=== PATIENT | female | born 1950 | race Caucasian/White ===

== ENCOUNTER 2024-09-26 13:28 | Inpatient (IN) | payer OTHER, SELFPAY ==
[2024-09-26] VITALS (37 sets, daily range): BP systolic 85–130; BP diastolic 49–67; PULSE 77; BMI 31.4
[2024-09-26 08:02] LABS: Hematocrit 31.3 % (37.0-47.0); Hemoglobin 9.8 g/dL (12.0-16.0); Mean Corp Hgb Conc. 31.3 g/dL (33.0-37.0); Mean Corpuscular Hgb 26.8 pg (27.0-31.0); Mean Corpuscular Volume 85.8 fL (81.0-99.0); Mean Platelet Volume 9.7 fL (7.4-10.4); Platelet Count 327 10^3/uL (130-400); Red Blood Cell Count 3.65 10^6/uL (4.20-5.40); Red Cell Dist. Width 15.7 % (11.5-14.5); White Blood Cell Count 8.6 10^3/uL (4.8-10.8)
[2024-09-26 08:35] LABS: ALT (SGPT) 15 U/L (0-35); AST (SGOT) 17 U/L (14-36); Albumin 4.5 g/dl (3.5-5.0); Alkaline Phosphatase 44 U/L (38-126); Blood Urea Nitrogen 49 mg/dl (7-17); Calcium 9.7 mg/dl (8.4-10.2); Carbon Dioxide 22 mmol/L (22-30); Chloride 110 mmol/L (98-107); Estimated Creatinine Clearance 32 ml/min; Glucose 83 mg/dl (70-99); Potassium 4.7 mmol/L (3.5-5.1); Sodium 139 mmol/L (135-145); Total Bilirubin 0.3 mg/dl (0.2-1.3); Total Protein 6.7 g/dl (6.3-8.2); eGFR 31.47
[2024-09-26] MEDS: PLAVIX 75 MG PO (08:45)
[2024-09-26 10:21] LABS: ACT-LR - POC 277 Seconds (116-155)
[2024-09-26 10:30] LABS: ACT-LR - POC 308 Seconds (116-155)
[2024-09-26 11:16] LABS: ACT-LR - POC 298 Seconds (116-155)
[2024-09-26 12:03] LABS: ACT-LR - POC 239 Seconds (116-155)
[2024-09-26 13:01] LABS: ACT-LR - POC 219 Seconds (116-155)
--- NOTE | 2024-09-26 13:14 | HPS.HSE ---
Addendum entered and electronically signed by Alex Blair MD 09/26/24 17:29:
d/w case with Dr. Wick. Patient in Acute on chronic HFrEF. Plan for staged PCI later this week. Thus, eliquis has been held and okay to start hep gtt for patient history of PE.
Original Note:
Family Physician
-
Family Physician: Risa Tabor DO
Chief Complaint
-
seen post cath
History of Present Illness
74-year-old female with extensive past medical history who was recently admitted to [facility] came in for cardiac catheterization. Patient says she was admitted to [facility] with chest pain. Was found that she had angina and also
with pericarditis and pericardial effusion. Patient was started on colchicine was recommend to follow-up with her outpatient primary outpatient coordinator Dr. Cast. Patient was also complaining of dyspnea on exertion. Denies lower extremity edema.
Denies PND and orthopnea. Patient was referred for further cardiac workup over here. Patient underwent diagnostic cardiac catheterization. Received report by RN at bedside that patient with severe coronary artery disease in LAD and RCA however
awaiting official report. Patient currently resting in bed denies any chest pain or shortness of breath. States she uses 2 L of oxygen at baseline due to her history of severe COPD. Chronically states she is short of breath with exertion.
Medical History
Past Medical History
Past Medical History: Reports Other
Additional Past Medical History:
Coronary artery disease
Chronic kidney disease stage 3b
Scleroderma
Raynaud's phenomenon
COPD
Chronic hypoxic respiratory failure
Asthma
History of pulmonary embolism
Chronic coagulopathy with Eliquis
Chronic HFrEF
Pericarditis
Pericardial effusion
History of pleural effusion status post thoracentesis
Neuropathy
Hypothyroidism
Mood disorder
Obesity
Breast cancer
LOUISE on CPAP
Past Surgical History: Reports Other
Additional Past Surgical History:
Breast cancer status post mastectomy and chemoradiation
Social History
Tobacco: Non-smoker
Alcohol: Occasional
Family History
Family History: Not pertinent
Allergies / Home Medications
Allergies reflects when Allergies were last updated in [employer].
Home Medications with original date entered in [employer]
Allergy/Medication List:
Allergies
Allergy/AdvReac Type Severity Reaction Status Date / Time
aspirin Allergy Intermediate Nausea / Verified 09/26/24 08:43
Vomiting
adhesive Allergy Blisters Verified 09/26/24 11:33
Beta-Blockers Allergy depression Verified 09/26/24 11:33
(Beta-Adrenergic Bloc
colesevelam (From WelChol) Allergy Nausea / Verified 09/26/24 11:33
Vomiting
ezetimibe (From Zetia) Allergy Muscle pain Verified 09/26/24 11:33
fish oil Allergy Unknown Verified 09/26/24 11:33
Cqsyuvy-ETZ-KeI Reductase Allergy paralysis Verified 09/26/24 11:33
Inhibitor
Home Medications
albuterol sulfate 90 mcg/actuation aerosol inhaler 2 puff inhalation Q6H PRN COPD 09/26/24
apixaban 5 mg tablet (Eliquis) 5 mg PO BID 09/26/24
azelastine 137 mcg (0.1 %) nasal spray 1 spray intranasal BID 09/26/24
budesonide 160 mcg-glycopyr 9 mcg-formot 4.8 mcg/actuation HFA inhaler (Breztri Aerosphere) 2 inh inhalation BID 09/26/24
carvedilol 3.125 mg tablet 3.125 mg PO BID 09/26/24
cetirizine 10 mg tablet 10 mg PO DAILY 09/26/24
clopidogrel 75 mg tablet (Plavix) 75 mg PO DAILY 09/26/24
colchicine 0.6 mg tablet 0.6 mg PO DAILY 09/26/24
cyclobenzaprine 10 mg tablet 10 mg PO HS 09/26/24
dexlansoprazole 60 mg capsule,biphase delayed release 60 mg PO DAILY 09/26/24
escitalopram oxalate 20 mg tablet 20 mg PO DAILY 09/26/24
escitalopram oxalate 5 mg tablet 5 mg PO DAILY 09/26/24
fluticasone propionate 50 mcg/actuation nasal spray,suspension 2 spray intranasal BID 09/26/24
gabapentin 300 mg capsule 300 mg PO HS 09/26/24
guaifenesin 600 mg tablet, extended release 12 hr 600 mg PO BID 09/26/24
hydroxychloroquine 400 mg tablet 400 mg PO DAILY 09/26/24
leflunomide 10 mg tablet 10 mg PO SUMOWEFRSA 09/26/24
leflunomide 10 mg tablet 20 mg PO TUTH 09/26/24
levothyroxine 75 mcg tablet 75 mcg PO DAILY 09/26/24
lorazepam 1 mg tablet 0.5 mg PO HS PRN anxiety 09/26/24
montelukast 10 mg tablet 10 mg PO DAILY 09/26/24
multivitamin-ferrous fumarate-folic acid 18 mg-400 mcg tablet (Centrum Women) 1 tab PO DAILY 09/26/24
nitroglycerin 0.4 mg sublingual tablet 0.4 mg sublingual Q5-15M PRN Chest pain 09/26/24
pantoprazole 40 mg tablet,delayed release 40 mg PO DAILY 09/26/24
spironolactone 25 mg tablet 25 mg PO DAILY 09/26/24
sucralfate 100 mg/mL oral suspension 10 ml PO AC 09/26/24
torsemide 10 mg tablet 10 mg PO DAILY 09/26/24
valsartan 160 mg tablet 80 mg PO DAILY 09/26/24
vitamin B complex 1 tab PO DAILY 09/26/24
Review of Systems
-
History Source: Patient
A 12 point ROS was completed and negative except as noted: Yes
Physical Exam
Vital Signs
Vital Signs
Temp Pulse Resp BP Pulse Ox
98.2 F 77 15 117/60 95
09/26/24 07:13 09/26/24 11:30 09/26/24 11:30 09/26/24 11:27 09/26/24 11:30
Physical Exam
General: Well Developed, Well Nourished, No Apparent Distress and Obese
HEENT: NormoCephalic, Moist mucous membranes, Atraumatic and Oxygen
Respiratory: Clear
Cardiac: S1/S2 and Regular Rhythm; No Murmur or Rub
GI: Soft, Non Tender, Non Distended and Normal Bowel Sounds; No Organomegaly
Rectal: Deferred by Provider
Musculoskeletal: No Clubbing, No Cyanosis and No Edema
Skin: No Rash
Neuro: Awake, Alert, Oriented, AO x 3, No Motor Deficits and Nonfocal/grossly intact
Psych: Calm
Laboratory Results
-
09/26/24 07:52
09/26/24 07:52
Laboratory Results
Total Bilirubin 0.3 mg/dl (0.2-1.3) 09/26/24 07:52
AST 17 U/L (14-36) 09/26/24 07:52
ALT 15 U/L (0-35) 09/26/24 07:52
Alkaline Phosphatase 44 U/L (38-126) 09/26/24 07:52
Data Reviewed
-
Old Records: Reviewed
Impression/Plan
-
#Unstable angina
#Coronary artery disease
Awaiting official cardiac catheterization report
Will await further cardiology evaluation and recommendation and hold Eliquis in the interim
Currently chest pain-free
Continue with goal-directed medical therapy-carvedilol, Plavix,
Does not seems to be on statin. Check lipid profile in the morning
Nitroglycerin as needed for chest pain
#Chronic kidney disease stage 3b
Monitor creatinine closely
If worsening of creatinine may need nephrology input prior to cardiac catheterization
Hold valsartan for now. Avoid hypotension
Avoid nephrotoxin
#Scleroderma
#Raynaud's phenomenon
Chronic immunosuppressive state
Continue with leflunomide and Plaquenil
#COPD
#Chronic hypoxic respiratory failure
#Asthma
Continue with a home bronchodilator regimen
Continue with Singulair
#History of pulmonary embolism
#Chronic coagulopathy with Eliquis
Eliquis is currently being held as cardiac catheterization planned pending. Can consider starting patient on heparin infusion
Patient PE was 6 months ago
#Chronic HFrEF
Per outpatient records EF of 20 to 25%
Diuresis per cardiology. Monitor creatinine closely with aggressive diuresis
Continue with beta-jas, Plavix, Aldactone
#Pericarditis
# History of effusion
Currently patient on colchicine
Vital signs are currently stable
#Neuropathy
Continue patient gabapentin
PT and OT
#Hypothyroidism
Continue with Synthroid
#Mood disorder
Continue with Lexapro
DVT prophylaxis SCDs
Full code. Patient is Jehovah witness and stated will refuse blood transfusion.
I spent a total of 80 minutes with the patient or on the floor. More than 50% of this time involved counseling and coordination of care.
[2024-09-26 14:31] LABS: ACT-LR - POC 178 Seconds (116-155)
[2024-09-26 15:10] LABS: ACT-LR - POC 152 Seconds (116-155)
--- NOTE | 2024-09-26 16:49 | CARDSERVLU ---
Echocardiogram with Lumason completed after protocol screening completed. Allergies verified.
Patent IV site: ___LAC__
IV site flushed with 0.9% NaCl pre and post administration.
Diluted bolus method utilized to enhance visualization of ventricular ernandez.
Total volume given: _4___ mL
Patient tolerated all procedures well without complications.
--- NOTE | 2024-09-26 18:09 | ITS.CL.CATH ---
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
Cardiac Catheterization
Procedure Report:
LEFT HEART CATHETERIZATION
Date of Procedure: September 26, 2024
Referring: Miguel Goodman NP and Rodger Bacon MD
PROCEDURES:
1. Left heart catheterization, coronary angiogram.
2. Moderate sedation.
3. Right heart catheterization
4. Functional physiologic testing of Prox to mid LAD
INDICATION: Mary is a 74 F with HTN, HLD, multiple drug allergies, Raynaud's syndrome, scleroderma on chronic steroids, CKD St 3B, CAD with prior LAD stents in 2004 at [facility], recent hospitalization at [facility] in mid August with ADHF found to
have LVEF 20-25% with pharm nuclear scan abnormal with post stress LVEF 17% who is now being referred for left and right heart cath.
ACCESS: Right common femoral artery and vein, 5Fr and 6Fr. sheath, resepctively, under US guidance.
HEMODYNAMICS : (mmHg)
RA (m) : 17
RV (s/d,m) : 52/11, 14
PA (s/d, m) : 52/26, 37
PCWP (m) : 20
PA saturation: 61.5% on room air
AO saturation: 88.9% on room air
RA saturation: 57.2% on room air
Cardiac Output : 5.34 L/min by Zehra calculation
Cardiac Index : 2.77 L/min/m-2 by Zehra calculation
Systemic vascular resistance: 943 dsc^(-5)
Pulmonary vascular resistance: 3.56 saucedo unit
Heart rate: 77 bpm
AO (s/d) : 112/60
LVEDP : 31
No significant gradient across the aortic valve to suggest aortic stenosis.
CORONARY ANATOMY:
Dominance: Right
Left Main Trunk (LMT): Large caliber vessel that gives rise to the LAD and LCx branches. The terminal left main has 20% stenosis.
Left Anterior Descending Artery (LAD): Large caliber vessel that gives off two major diagonal branches as it courses along the anterior inter-ventricular groove before reaching the apex. The proximal to mid-LAD is heavily calcified and diffusely
diseased 50% then then a 95% stenosis at the second diagonal. The first major diagonal which is a small caiber vessel has ostial 70% stenosis. The apical LAD is diffusely diseased. Proximal to Mid LAD is iFR positive at 0.81
Left Circumflex Artery (LCx): Large caliber vessel that gives off a first large early bifurcating major obtuse marginal (OM) branches as it courses along the atrio-ventricular (AV) groove. The inferior limb of the OM1 has an ostial 70% stenosis.
The superior limb is the bigger of the two vessels.
Right Coronary Artery (RCA): Large caliber dominant vessel that gives rise to large posterior descending artery (RPDA) that reaches the apex and postero-lateral ventricular (RPLV) branches distally. The mid-RCA has a mid-vessel long 80% stenosis.
iFR of Poximal to Mid LAD: The LCA was selectively enagged using EBU 3.75 6Fr guide catheter. Additional heparin was given throughout the case. 200mg of IC nitroglycerine was given. iFR Pattison wire was normalized just outside guide tip and advance
across proximal to mid long area of calcified 50% stenosis which was abnormal at 0.81, 0.82, 0.4 with pull back showing normalization of iFR in proximal portion of LAD. No drift noted at guide.
SEDATION: 32 minutes of procedural sedation was utilized. IV Midazolam and IV Fentanyl were administered. An independent medical billing and coding instructor was present to assist with and help manage the patient's level of consciousness and physiologic status.
RADIATION SUMMARY: Fluoro Time (min): 8.9 dose (mGy): 632.7, DAP (Gy.cm2) : 38 point
Closure Device: There were no immediate intra-procedural complications. The sheath was pulled in the medical laboratory scientist and a vascular-band applied to the right wrist for radial artery hemostasis using the patent hemostasis technique.
CONCLUSIONS
1. Multivessel CAD.
2. Increased right and left sided filling pressures with normal CO.
3. Elevated LVEDP at 31mmHG.
RECOMMENDATIONS
1. Bedrest per protocol
2. Continue aggressive medical therapy and risk factor modification for secondary CAD prevention.
3. Hydrate with normal saline to mitigate the risk of contrast-induced acute kidney injury.
4. Would recommend Heart Team evaluation for complex triple vessel coronary artery disease with ischemic cardiomyopathy If declined by cardiac surgery for CABG would recommend high risk complex PCI of the calcified LAD and the RCA likely at 48-72hr
parker given baseline CKD and to reduce risk of PATRIA.
5. IV diuresis and GDMT for ischemic CM.
Copy to: Miguel Goodman NP and Rodger Bacon MD
Qi Wick MD.
--- NOTE | 2024-09-26 18:24 | PTCARENOTE ---
Addendum entered by Polina Kasper RN 09/26/24 19:08:
80 mg IV Lasix given 2 hours after sheath pull as ordered.
Addendum entered by Polina Kasper RN 09/26/24 19:03:
patient had breast cancer therefore right limb restriction, pink band on.
Original Note:
received patient from labeling machine operator with right femoral artery and vein site, dsg. D/i, distal pulse very weak but palpable. patient remains on strict bedrest until 1949. patient understands post cath restrictions. monitor placed NSR, VSS. lung brewer
diminished , patient on chronic o2 3LNC. patient unable to void, pure wick already in place. patient has skin cancer on right eyebrow which was burnt off, wart on left ring finger that was burned off and cyst removed from left upper shoulder area,
sutures in place with band aid over site. oriented to room, and call benz system. patient is a Jehovah witness.
--- NOTE | 2024-09-26 18:39 | CONSULT.CT ---
Addendum entered and electronically signed by THOMAS Diaz 09/27/24 13:48:
Case discussed with Dr Zavala-agrees with plan for PCI
Original Note:
Consultation
-
Date/Time Consultation Requested: 09/26/24
Date/Time Consultation Performed: 09/26/24
Requesting Provider: Qi Wick
Performing Provider: Mariam GUZMAN for Chuck Wagoner
Reason for Consultation: CABG evaluation
Patient History
Physicians
Family Physician: Risa Tabor
Outpatient Heel Attacher Wood: Rodger Bacon
Inpatient Heel Attacher Wood: Qi Wick
History of Present Illness
74-year-old female with extensive past medical history including CAD with prior stents, CKD, COPD, breast cancer s/p mastectomy with chemo/radiation, was recently admitted to [facility] for pericarditis and pericardial effusion which was not
drained. Patient was referred for further cardiac workup at [facility] due to SOB/SALINAS and presents 09/27/23 for diagnostic cardiac catheterization. Severe LAD and RCA disease in setting of low EF 25%. States she uses 2 L of oxygen at baseline due to her
history of severe COPD. Chronically states she is short of breath with exertion.
Pertinent negatives:
Past Medical History
Past Medical History: Asthma, CAD (prior stents 2003), Cancer (right breast cancer), COPD (non-smoker), SALINAS, Hypothyroidism and LOUISE (uses CPAP)
chronic small right pulmonary emboli, scleroderma; pericardial effusion; pleural effusion requiring thoracentesis; Arnett's palsy; Raynaud's; peripheral neuropathy
Past Surgical History
Past Surgical History: Mastectomy (right with rectus flap reconstruction) and Other (B/L intraocular lens implanrs)
Social History
Alcohol: None
Drug: None
Tobacco: Non-Smoker
Personal: Single
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
Allergies
Allergy/AdvReac Type Severity Reaction Status Date / Time
adhesive Allergy Blisters Verified 09/26/24 11:33
aspirin Allergy Nausea / Verified 09/26/24 16:15
Vomiting
Beta-Blockers Allergy depression Verified 09/26/24 11:33
(Beta-Adrenergic Bloc
colesevelam (From WelChol) Allergy Nausea / Verified 09/26/24 11:33
Vomiting
ezetimibe (From Zetia) Allergy Muscle pain Verified 09/26/24 11:33
fish oil Allergy Unknown Verified 09/26/24 11:33
Htgtwdy-OKI-JiO Reductase Allergy paralysis Verified 09/26/24 11:33
Inhibitor
Home Medications
�Medication �Instructions �Recorded �Confirmed �Type
albuterol sulfate 90 mcg/actuation 2 puff inhalation Q6H PRN COPD 09/26/24 09/26/24 History
aerosol inhaler
apixaban 5 mg tablet (Eliquis) 5 mg PO BID 09/26/24 09/26/24 History
azelastine 137 mcg (0.1 %) nasal 1 spray intranasal BID 09/26/24 09/26/24 History
spray
budesonide 160 mcg-glycopyr 9 2 inh inhalation BID 09/26/24 09/26/24 History
mcg-formot 4.8 mcg/actuation HFA
inhaler (Breztri Aerosphere)
carvedilol 3.125 mg tablet 3.125 mg PO BID 09/26/24 09/26/24 History
cetirizine 10 mg tablet 10 mg PO DAILY 09/26/24 09/26/24 History
clopidogrel 75 mg tablet (Plavix) 75 mg PO DAILY 09/26/24 09/26/24 History
colchicine 0.6 mg tablet 0.6 mg PO DAILY 09/26/24 09/26/24 History
cyclobenzaprine 10 mg tablet 10 mg PO HS 09/26/24 09/26/24 History
dexlansoprazole 60 mg 60 mg PO DAILY 09/26/24 09/26/24 History
capsule,biphase delayed release
escitalopram oxalate 20 mg tablet 20 mg PO DAILY 09/26/24 09/26/24 History
escitalopram oxalate 5 mg tablet 5 mg PO DAILY 09/26/24 09/26/24 History
fluticasone propionate 50 2 spray intranasal BID 09/26/24 09/26/24 History
mcg/actuation nasal
spray,suspension
gabapentin 300 mg capsule 300 mg PO HS 09/26/24 09/26/24 History
guaifenesin 600 mg tablet, 600 mg PO BID 09/26/24 09/26/24 History
extended release 12 hr
hydroxychloroquine 400 mg tablet 400 mg PO DAILY 09/26/24 09/26/24 History
leflunomide 10 mg tablet 10 mg PO SUMOWEFRSA 09/26/24 09/26/24 History
leflunomide 10 mg tablet 20 mg PO TUTH 09/26/24 09/26/24 History
levothyroxine 75 mcg tablet 75 mcg PO DAILY 09/26/24 09/26/24 History
lorazepam 1 mg tablet 0.5 mg PO HS PRN anxiety 09/26/24 09/26/24 History
montelukast 10 mg tablet 10 mg PO DAILY 09/26/24 09/26/24 History
multivitamin-ferrous 1 tab PO DAILY 09/26/24 09/26/24 History
fumarate-folic acid 18 mg-400 mcg
tablet (Centrum Women)
nitroglycerin 0.4 mg sublingual 0.4 mg sublingual Q5-15M PRN Chest 09/26/24 09/26/24 History
tablet pain
pantoprazole 40 mg tablet,delayed 40 mg PO DAILY 09/26/24 09/26/24 History
release
spironolactone 25 mg tablet 25 mg PO DAILY 09/26/24 09/26/24 History
sucralfate 100 mg/mL oral 10 ml PO AC 09/26/24 09/26/24 History
suspension
torsemide 10 mg tablet 10 mg PO DAILY 09/26/24 09/26/24 History
valsartan 160 mg tablet 80 mg PO DAILY 09/26/24 09/26/24 History
vitamin B complex 1 tab PO DAILY 09/26/24 09/26/24 History
Review of Systems
-
History Source: Patient
General: Reports Other (states 50 pound weight loss last year )
HEENT: Reports No Symptoms
Respiratory: Reports SOB and SALINAS
Cardiac: Reports No Symptoms
Abdomen/GI: Reports No Symptoms
: Reports No Symptoms
Musculoskeletal: Reports No Symptoms
Skin: Reports No Symptoms
Neurological: Reports No Symptoms
Vascular: Reports No Symptoms
Physical Exam
Vital Signs
Temp 97.7 F 09/26/24 17:43
Temp route: Oral 09/26/24 17:43
Pulse 80 09/26/24 16:00
Resp Rate 18 09/26/24 17:43
Blood pressure 102/55 09/26/24 15:40
Blood pressure extremity used: Left upper arm 09/26/24 17:43
Position: Lying 09/26/24 17:43
MAP (cuff-Anita Monitor) 69 09/26/24 15:40
SaO2 96 09/26/24 16:00
Nasal Cannula flow liters per minute 3 09/26/24 17:43
Oxygen Mode of Delivery Room air 09/26/24 14:29
Can the patient verbally communicate their pain? Yes 09/26/24 17:43
Pain scale ratin 09/26/24 17:43
Actual Weight 85.5 kg 09/26/24 08:07
Body Mass Index (BMI) 31.4 09/26/24 08:07
Labs
09/26/24 07:52
Exam
General: Well Developed and Well Nourished
HEENT: Normocephalic, Anicteric and Moist Mucous Membranes
Neck: Trachea Midline
Respiratory: Clear
Cardiac: S1/S2 and Regular Rhythm
GI: Soft, Non Tender and Normal Bowel Sounds
Rectal: Deferred by Provider
Skin: Warm and Dry
Neuro: AO x 3, No Motor Deficits and Nonfocal/Grossly Intact
Lymph: No Lymphadenopathy
Psych: Calm and Confused
Assessment / Plan
-
74 year old female with multivessel CAD, chronic HFrEF (20-25%), CKDIIIb (GFR 31)
-surgeon to review imaging and d/w cardiology
- needs medical optimization
- if deemed a surgical surgical candidate, will need pre-op diagnostics
Data Reviewed
-
EKG: Tracing Personally Visualized and interpreted, Report Reviewed by me and Discussed with Physician
[employer] Net Software Developer: Report Reviewed by me and Discussed with Physician
Labs: Labs Reviewed by me and Discussed with Physician
[2024-09-26] MEDS: LASIX 80 MG IV (18:48)
[2024-09-26] MEDS: FLUSH (NSS) 1 FLUSH IV (18:49)
[2024-09-26 18:54] LABS: Hematocrit 31.6 % (37.0-47.0); Hemoglobin 9.6 g/dL (12.0-16.0); Mean Corp Hgb Conc. 30.4 g/dL (33.0-37.0); Mean Corpuscular Hgb 26.4 pg (27.0-31.0); Mean Corpuscular Volume 86.8 fL (81.0-99.0); Mean Platelet Volume 9.5 fL (7.4-10.4); Platelet Count 305 10^3/uL (130-400); Red Blood Cell Count 3.64 10^6/uL (4.20-5.40); Red Cell Dist. Width 15.6 % (11.5-14.5)
[2024-09-26] MEDS: SYMBICORT 160/4.5 MCG INHALER 2 PUFF INH (19:04)
[2024-09-26 19:06] LABS: APTT 27.6 Sec (23.4-35.0)
[2024-09-26] MEDS: HEPARIN 25000 UNITS/250 ML IV (19:43)
[2024-09-26] MEDS: CARAFATE SUSPENSION PO (19:51)
[2024-09-26] MEDS: MUCINEX 600 MG PO (20:11)
[2024-09-26] MEDS: COREG 3.125 MG PO (20:11)
[2024-09-26] MEDS: FLEXERIL 10 MG PO (22:13)
[2024-09-26] MEDS: ATIVAN 0.5 MG PO (22:13)
[2024-09-26] MEDS: NEURONTIN 300 MG PO (22:13)
--- NOTE | 2024-09-26 23:16 | PTCARENOTE ---
Patient received at change of shift resting in the bed. Right groin site with gauze and tegaderm C/D/I, pedal pulse palpable, leg cool and pale but sensation is intact. Surrounding area of groin puncture soft to palpation, no ecchymosis present.
Denies chest pain. After bedrest was completed the patient was assisted to ambulate and use the bathroom. Denies feeling lightheaded or dizzy. Voiding in the bathroom appropriately. Heparin gtt initiated at 1500units/hr per order. Sinus rhythm on
telemetry. Oxygen saturation 97-99% on 3L NC. The patient states she is a chronic O2 user and 3L is normal for her. PRN Lorazepam given per patient request, see MAR. Plan of care discussed. Call benz within reach. Care ongoing
[2024-09-27] VITALS (8 sets, daily range): BP systolic 92–107; BP diastolic 49–64; BMI 30.6
[2024-09-27] MEDS: TYLENOL 650 MG PO ×2 (02:15→21:35)
[2024-09-27 02:57] LABS: Hematocrit 30.8 % (37.0-47.0); Hemoglobin 9.9 g/dL (12.0-16.0); Mean Corp Hgb Conc. 32.1 g/dL (33.0-37.0); Mean Corpuscular Hgb 26.7 pg (27.0-31.0); Mean Platelet Volume 9.6 fL (7.4-10.4); Platelet Count 301 10^3/uL (130-400); Red Blood Cell Count 3.71 10^6/uL (4.20-5.40); Red Cell Dist. Width 15.7 % (11.5-14.5); White Blood Cell Count 9.2 10^3/uL (4.8-10.8)
[2024-09-27 03:14] LABS: APTT 130.9 Sec (23.4-35.0)
[2024-09-27 04:19] LABS: Hepatitis C Antibody Negative (Negative)
[2024-09-27 04:34] LABS: Blood Urea Nitrogen 45 mg/dl (7-17); Calcium 9.7 mg/dl (8.4-10.2); Carbon Dioxide 23 mmol/L (22-30); Chloride 109 mmol/L (98-107); Estimated Creatinine Clearance 36 ml/min; Glucose 89 mg/dl (70-99); HDL Cholesterol 45 mg/dl; LDL Cholesterol, Calculated 164 mg/dl; Potassium 4.6 mmol/L (3.5-5.1); Sodium 139 mmol/L (135-145); Total Cholesterol 255 mg/dl (50-199); Triglyceride 234 mg/dl (10-149); Very Low Density Lipoprotein 46 mg/dl (0-30); eGFR 36.57
[2024-09-27] MEDS: SYNTHROID 75 MCG PO (05:18)
[2024-09-27] MEDS: SYMBICORT 160/4.5 MCG INHALER 2 PUFF INH ×2 (07:12→17:54)
[2024-09-27] MEDS: SPIRIVA RESPIMAT 2.5 MCG 2 PUFF INH (07:12)
--- NOTE | 2024-09-27 07:55 | W.PN.CARDCBS ---
Addendum entered and electronically signed by Dominguez Alaniz MD 09/27/24 10:12:
I saw and examined the patient.
The FREQUENCY CHECKER or PA's note was reviewed and I agree with the note.
Comment: General: Well developed, well nourished in NAD.
Neck: Supple, no JVD, HJR, carotids +2 B/L, no bruits bilaterally.
Heart: Non displaced PMI, RRR, no murmurs, No S3, S4, no rubs.
Lungs: Scattered rhonchi
Extremities: No clubbing, cyanosis or edema bilaterally.
Neuro: Grossly nonfocal, awake, alert and oriented x3.
Await CT surgery evaluation but likely will be PCI possibly on Friday 09/29 based on schedule. Will give IV Lasix. Check echocardiogram. Discussed with patient and nursing in detail
Original Note:
Today's Communication / Plan
-
40 mg IV Lasix today
follow Cr
echo
CT surgical eval for CABG vs high risk PCI
Impression / Plan
-
Primary Geomagnetist: Dr. Rodger Bacon
Assessment:
CAD
Status post LAD PCI 2004 at [facility]
MV CAD by cath 09/26/24
ICM
Acute on chronic HFrEF
CKD3B
HTN
HLD
COPD on chronic 3L supp O2
History of PE
Chronic OAC with eliquis
History of statin intolerance (paralysis)
Raynaud's syndrome
Scleroderma on chronic steroids
Neuropathy
Hypothyroidism
History of breast cancer s/p mastectomy, chemo, radiation
Obesity
LOUISE on CPAP
Chronic anemia
ECHO 09/27/24: pending
Plan:
- Patient had hospitalization at [facility] in mid August with acute decompensated heart failure and found to have EF of 20 to 25% by echo. Then underwent subsequent pharmacologic nuclear stress test, also abnormal with post-rest EF of 17%. She
underwent left and right heart cath on 09/26/2024 and was found to have multivessel coronary disease of LAD, OM1, RCA.
- Undergoing CT surgical evaluation. Unclear if will be candidate for CABG given comorbidities including CKD and COPD on 3 L chronically as an outpatient. If not felt to be CABG candidate, would be candidate for high risk PCI of LAD and RCA per
interventional cardiology
- She remains chest pain-free overnight. Continue IV heparin, aspirin, Plavix
- PCWP at time of cath was 20. Was given 80 mg IV Lasix yesterday with good response. Would consider additional 40 mg IV today. Creatinine improved from 1.7-1.5. She has baseline CKD 3B. Was on torsemide 10 mg daily prior to admission
- CHF education
- She is back to baseline 3 L nasal cannula
- In sinus rhythm on review of telemetry overnight
- Repeat echo 09/27 to reevaluate EF
- Continue GDMT of ischemic cardiomyopathy with Coreg, spironolactone. Outpatient valsartan presently on hold. Could consider addition of SGLT2 inhibitor if cost affordable, will have case management assess
- On Eliquis as an outpatient due to history of PE. Will need to determine anticoagulation/antiplatelet regimen once treatment of coronary disease determined
- Discussed with nursing
Progress Note - Geomagnetist
Subjective
Date of Service: September 27, 2024
No chest pain. Reports good response to IV Lasix overnight
Objective
Labs:
09/27/24 02:40
09/27/24 03:57
Labs
Hgb 9.9 g/dL (12.0-16.0) L 09/27/24 02:40
Hct 30.8 % (37.0-47.0) L 09/27/24 02:40
Plt Count 301 10^3/uL (130-400) 09/27/24 02:40
APTT 130.9 Sec (23.4-35.0) H 09/27/24 02:35
Sodium 139 mmol/L (135-145) 09/27/24 03:57
Potassium 4.6 mmol/L (3.5-5.1) 09/27/24 03:57
BUN 45 mg/dl (7-17) H 09/27/24 03:57
Creatinine 1.5 mg/dL (0.6-1.0) H 09/27/24 03:57
Glucose 89 mg/dl (70-99) 09/27/24 03:57
Vital Signs and I&O:
Vital Signs
Temp Pulse Resp BP Pulse Ox
98.2 F 78 16 106/49 98
09/27/24 02:06 09/27/24 07:16 09/27/24 07:16 09/27/24 05:20 09/27/24 07:16
Vital Signs
Temp Pulse Resp BP Pulse Ox
98.2 F 78 16 106/49 98
09/27/24 02:06 09/27/24 07:16 09/27/24 07:16 09/27/24 05:20 09/27/24 07:16
Intake & Output
09/24/24 09/25/24 09/26/24 09/27/24
07:59 07:59 07:59 07:59
Output Total 300 / 300
Balance -300 / -300
Physical Exam
Physical Exam
GEN: No distress, awake, alert, oriented x3. On 3 L
HEENT: supple, anicteric, mmm, EOMI
LUNGS: Few crackles B/L bases, no wheezes
CV: Reg, S1/S2, no murmur
ABD: soft, BS+, NT/ND
EXT: No cyanosis, clubbing, edema
NEURO: Gross non-focal
SKIN: Warm, pink, dry. No rash
[2024-09-27] MEDS: MUCINEX 600 MG PO ×2 (08:25→19:44)
[2024-09-27] MEDS: PLAVIX 75 MG PO (08:25)
[2024-09-27] MEDS: LEXAPRO 5 MG PO (08:25)
[2024-09-27] MEDS: ALDACTONE 25 MG PO (08:25)
[2024-09-27] MEDS: ZYRTEC 10 MG PO (08:26)
[2024-09-27] MEDS: PROTONIX 40 MG PO (08:26)
[2024-09-27] MEDS: PLAQUENIL 400 MG PO (08:26)
[2024-09-27] MEDS: LEXAPRO 20 MG PO (08:26)
[2024-09-27] MEDS: COLCHICINE 0.6 MG PO (08:26)
[2024-09-27] MEDS: SINGULAIR 10 MG PO (08:26)
[2024-09-27] MEDS: COREG 3.125 MG PO ×2 (08:26→19:44)
[2024-09-27] MEDS: CARAFATE SUSPENSION 1 GM PO ×3 (10:02→15:53)
[2024-09-27] MEDS: LASIX 40 MG IV (11:18)
[2024-09-27 12:05] LABS: APTT 124.5 Sec (23.4-35.0)
[2024-09-27] MEDS: HEPARIN 25000 UNITS/250 ML IV (12:19)
--- NOTE | 2024-09-27 12:48 | CM ---
Addendum entered by SOPHIE Collier 09/27/24 15:18:
Did receive return call from [facility] [employer] Director, Carla. She clarifies that patient has 49 h of care. They are hoping to increase to 21h/day. They are requesting that MD write this in their note. Will discuss with MD once plan of
care is known w/ CT Surg.
Original Note:
CM following for DC planning needs.
Met w/ patient at bedside to complete initial assessment.
Pt. reports that she resides alone in a private, multi level apartment. Apartment has a stair glide to second level and no steps to enter.
Pt. receives support 59 h/week through aides. Aides are in her home daily from 10-330P. They assist with ADL as needed and housekeeping/cooking.
Pt. is hopeful to increase these hours. She is asking for documentation from MD in order to do so. She has provided her Supports Coordinator, Carla Trotter/ [phone]- I will reach out to her to see what documentation is needed.
Pt. also has VN thru [facility] and is currently open to services.
Add'l DME in the home include O2 (supplied by [employer]- 3L), RW, SPC and rollator. Pt. uses a rollator to ambulate.
DC needs are ultimately unknown and will depend on medical progress.
Will follow closely.
--- NOTE | 2024-09-27 13:00 | W.PN.HOSP.TC ---
Today's Communication/Plan
-
Diuresis per cardiology
Trend creatinine
Continue with heparin infusion
Await CT surgery input
Assessment / Plan
Assessment / Plan
General: Well Developed, Well Nourished, No Apparent Distress and Obese
HEENT: NormoCephalic, Moist mucous membranes, Atraumatic and Oxygen
Respiratory: Clear
Cardiac: S1/S2 and Regular Rhythm; No Murmur or Rub
GI: Soft, Non Tender, Non Distended and Normal Bowel Sounds; No Organomegaly
Rectal: Deferred by Provider
Musculoskeletal: No Clubbing, No Cyanosis and No Edema
Skin: No Rash
Neuro: Awake, Alert, Oriented, AO x 3, No Motor Deficits and Nonfocal/grossly intact
Psych: Calm
#Unstable angina
#Coronary artery disease status post PCI
Currently chest pain-free
Continue with goal-directed medical therapy-carvedilol, Plavix,
Does not seems to be on statin as allergic with paralysis as stated. Significantly elevated cholesterol.
Nitroglycerin as needed for chest pain
Plan for stage cardiac catheterization later this week if not a surgical candidate
Patient with multivessel coronary artery disease and CT surgery has been consulted
#Acute on chronic HFrEF
#Ischemic cardiomyopathy
Per outpatient records EF of 20 to 25%
Diuresis per cardiology. Monitor creatinine closely with aggressive diuresis
Continue with beta-jas, Plavix, Aldactone
Diuresis per cardiology
#Chronic kidney disease stage 3b
Monitor creatinine closely. Creatinine 1.5.
If worsening of creatinine may need nephrology input prior to cardiac catheterization
Hold valsartan for now. Avoid hypotension
Avoid nephrotoxin
Obtain records from PCP for baseline creatinine. Per patient she was told by primary doctor about elevated creatinine.
#Scleroderma
#Raynaud's phenomenon
Chronic immunosuppressive state
Continue with leflunomide and Plaquenil
#COPD
#Chronic hypoxic respiratory failure
#Asthma
#Chronic dyspnea
Continue with a home bronchodilator regimen
Continue with Singulair
#History of pulmonary embolism
#Chronic coagulopathy with Eliquis
Eliquis is currently being held as cardiac catheterization or surgery. Continue with heparin infusion.
Patient PE was 6 months ago
Patient is due to see her primary tire recapper end of the month
#Pericarditis
# History of effusion
Currently patient on colchicine
Vital signs are currently stable
#Neuropathy
Continue patient gabapentin
#Hypothyroidism
Continue with Synthroid
#Mood disorder
Continue with Lexapro
DVT prophylaxis heparin drip
Full code. Patient is Jehovah witness and stated will refuse blood transfusion.
Anticipated Discharge: > 48 hours
Subjective/Interval History
-
Date of Service: September 27, 2024
Currently denies any chest pain
Objective Data
-
Labs:
Laboratory Results
09/27/24 09/27/24 09/27/24
02:35 02:40 03:57
WBC 9.2
Hgb 9.9 L
Hct 30.8 L
Plt Count 301
APTT 130.9 H
Sodium Cancelled 139
Potassium Cancelled 4.6
Chloride Cancelled 109 H
Carbon Dioxide Cancelled 23
BUN Cancelled 45 H
Creatinine Cancelled 1.5 H
Glucose Cancelled 89
Calcium Cancelled 9.7
09/27/24 09/27/24
11:43 18:30
WBC
Hgb
Hct
Plt Count
APTT 124.5 H Pending
Sodium
Potassium
Chloride
Carbon Dioxide
BUN
Creatinine
Glucose
Calcium
Vital Signs:
Vital Signs
Temp Pulse Resp BP Pulse Ox
98.3 F 84 18 107/59 99
09/27/24 08:22 09/27/24 11:18 09/27/24 08:22 09/27/24 11:18 09/27/24 08:22
I&O
09/26/24 09/27/24 09/28/24
06:59 06:59 06:59
Output Total 300 / 300
Balance -300 / -300
Data Reviewed
-
Total Time Spent with Patient (in minutes): 55
--- NOTE | 2024-09-27 14:07 | W.PN.UPDATE ---
Update Note
Progress Note Update
STS RISK SCORE
Procedure Type:�Isolated CABG
Perioperative Outcome Estimate %
Operative Mortality 14.6%
Morbidity & Mortality 37.6%
Stroke 5.09%
Renal Failure 7.96%
Reoperation 3.24%
Prolonged Ventilation 27.1%
Deep Sternal Wound Infection 0.738%
Long Hospital Stay (>14 days) 37.3%
Short Hospital Stay (<6 days)* 5.18%
Clinical Summary
Planned Surgery: Isolated CABG, Urgent, First cardiovascular surgery
Demographics: 74 year old, female, 83.3kg, 165cm, BMI: 30.6 kg/m�
Lab Values: Creatinine: 1.5 mg/dL, Hematocrit: 33%, WBC Count: 9.2 10�/�L, Platelet Count: 921930 cells/�L
PreOp Medications: Insulin diabetes control
Substance Abuse: Never smoker
Risk Factors / Comorbidities: Insulin-dependent Diabetes Mellitus, Cancer <=5 yrs, Hypertension, Family Hx of CAD
Pulmonary RF: Severe CLD, Recent Pneumonia, Home O?, Sleep Apnea
Vascular RF: Cerebrovascular Disease: CVA > 30 days
Cardiac Status: NYHA Class II, Ejection Fraction = 23%
Coronary Artery Disease: 3 vessels diseased, Other
Valve Disease: Mild AR, Mild MR, Trivial/Trace TR
Prev. Cardiac Interv: Previous PCI: Not during this episode of care
--- NOTE | 2024-09-27 19:21 | PTCARENOTE ---
~4833-7579: Handoff report received from nightshift RN. Pt AOx4, NSR BBB 80s-90s on tele, SBP 100s-120s, + pulses, 3L NC (baseline) satting 98-100%, lung sounds clear bilaterally. Pt idnependent in room/ to bathroom. Heparin gtt infusing per
protocol. Bloodwork obtained and sent to lab, results pending. Pt denies pain at this time. Foam present on upper back, POA, dressing CDI. R groin site soft with 4x4 and tegaderm, CDI. Cardiology PA met with patient to discuss plan of care. IV lasix
given, I/Os charted. All needs met at this time, call benz within reach.
~8700-4907: PTT result, heparin gtt rate changed per protcol. Next PTT ordered.
~2011-1934: Patient in room, family at bedside. VSS. Heparin gtt infusing per order. I/Os charted. All needs met at this time, call benz within reach. Handoff report given to nightshift RN.
[2024-09-27 20:04] LABS: APTT 78.7 Sec (23.4-35.0)
[2024-09-27] MEDS: FLEXERIL 10 MG PO (21:35)
[2024-09-27] MEDS: NEURONTIN 300 MG PO (21:35)
[2024-09-27] MEDS: ATIVAN 0.5 MG PO (21:35)
--- NOTE | 2024-09-27 23:43 | PTCARENOTE ---
Patient received at change of shift resting in the bed. Heparin gtt infusing at 1100 units/hr. Right groin puncture with gauze and tegaderm C/D/I. Ecchymosis noted but surrounding area soft to palpation. RLE warm to touch. Pedal pulse palpable.
Patient denies chest pain or discomfort. Sinus rhythm on telemetry. Oxygen saturation on 3L NC 96-97%. Reported some generalized discomfort in her bilateral upper arms and body aches. PRN acetaminophen administered, see MAR. Patient also requested
PRN lorazepam as well, see MAR. Plan of care discussed with patient. Call benz within reach. Care ongoing.
[2024-09-28] VITALS (11 sets, daily range): BP systolic 93–107; BP diastolic 37–74; BMI 30.7
[2024-09-28 02:25] LABS: Hematocrit 29.2 % (37.0-47.0); Hemoglobin 9.5 g/dL (12.0-16.0); Mean Corp Hgb Conc. 32.5 g/dL (33.0-37.0); Mean Corpuscular Hgb 27.1 pg (27.0-31.0); Mean Corpuscular Volume 83.4 fL (81.0-99.0); Mean Platelet Volume 9.8 fL (7.4-10.4); Platelet Count 294 10^3/uL (130-400); Red Cell Dist. Width 15.5 % (11.5-14.5); White Blood Cell Count 8.4 10^3/uL (4.8-10.8)
[2024-09-28 02:58] LABS: APTT 89.4 Sec (23.4-35.0)
[2024-09-28 03:48] LABS: Blood Urea Nitrogen 50 mg/dl (7-17); Calcium 10.5 mg/dl (8.4-10.2); Carbon Dioxide 23 mmol/L (22-30); Chloride 106 mmol/L (98-107); Estimated Creatinine Clearance 33 ml/min; Glucose 105 mg/dl (70-99); Potassium 5.1 mmol/L (3.5-5.1); Sodium 136 mmol/L (135-145); eGFR 33.84
[2024-09-28] MEDS: SYNTHROID 75 MCG PO (06:05)
[2024-09-28] MEDS: SPIRIVA RESPIMAT 2.5 MCG 2 PUFF INH (08:06)
[2024-09-28] MEDS: SYMBICORT 160/4.5 MCG INHALER 2 PUFF INH ×2 (08:06→19:19)
[2024-09-28] MEDS: LEXAPRO 5 MG PO (08:21)
[2024-09-28] MEDS: PLAQUENIL 400 MG PO (08:21)
[2024-09-28] MEDS: MUCINEX 600 MG PO ×2 (08:21→20:22)
[2024-09-28] MEDS: COLCHICINE 0.6 MG PO (08:22)
[2024-09-28] MEDS: COREG 3.125 MG PO ×2 (08:22→20:22)
[2024-09-28] MEDS: SINGULAIR 10 MG PO (08:22)
[2024-09-28] MEDS: PLAVIX 75 MG PO (08:22)
[2024-09-28] MEDS: LEXAPRO 20 MG PO (08:22)
[2024-09-28] MEDS: CARAFATE SUSPENSION 1 GM PO ×3 (08:22→15:59)
[2024-09-28] MEDS: PROTONIX 40 MG PO (08:22)
[2024-09-28] MEDS: ALDACTONE 25 MG PO (08:22)
[2024-09-28] MEDS: ZYRTEC 10 MG PO (08:22)
--- NOTE | 2024-09-28 08:54 | W.PN.CARDCBS ---
Addendum entered and electronically signed by Qi Wick MD 09/28/24 20:41:
I saw and examined the patient.
The Drainage Engineer's note was reviewed and I agree with the note.
Comment: Patient is doing well and is in good spirits today. She denies any chest discomfort or shortness of breath. Her creatinine remained stable.
Vital signs and lab work reviewed. Creatinine stable 1.5 through 1.7. On exam patient is well-appearing, no acute distress, regular rate, normal S1 and S2, no murmurs, rubs or gallops, decreased breath sounds at bilateral bases, elevated JVP,
abdomen soft, nontender, nondistended with active bowel sounds, right common femoral access site with no evidence of hematoma or bruit, warm extremities
Echocardiogram reviewed from September 26, 2024 showing LVEF of 20 to 25%, small to moderate pericardial effusion. No significant valvular abnormalities.
Recommendations
1. Extensive discussion was had with patient at bedside with plan for PCI of LAD tomorrow, plus or minus IV L shockwave, plus or minus support with IABP/Impella if need be intra procedurally. Given she is a [place], we clarified and she
would not want any blood products but is agreeable to hemoglobin based blood substitutes, plasma protein fraction, dialysis and heart lung equipment and hemodilution.
2. Continue Plavix. Eliquis has been on hold with history of PE. Continue heparin drip. Plan to give 325 mg of aspirin x 1 tomorrow morning given her intolerance our plan would not be to continue this but leave her on chronic Plavix and Eliquis
post PCI.
3. As an outpatient strongly will need PCSK9 inhibitor consideration for significantly elevated LDL. Optimization of goal-directed medical therapy for severe ischemic cardiomyopathy.
4. Risk and benefits including alternative treatment options were discussed with patient at significant detail and she is agreeable to proceeding with planned PCI tomorrow. Dr. Reagan Zavala from CT surgery evaluated and saw the patient and
deemed her high risk for open heart surgery however patient is a rescue in case of any emergent complications. Consent was signed bedside with plan for case tomorrow morning.
Qi Wick MD, [facility], [facility]
Total time spent: 52-minutes
Original Note:
Today's Communication / Plan
-
for cath later today vs in AM
324mg asa day of cath then eliquis, plavix given history of asa intolerance
GDMT of ICM post procedure as able
Impression / Plan
-
Primary Care Coordinator: Dr. Rodger Bacon
Assessment:
CAD
Status post LAD PCI 2004 at [facility]
MV CAD by cath 09/26/24
ICM
Acute on chronic HFrEF
CKD3B
HTN
HLD
COPD on chronic 3L supp O2
History of PE
Chronic OAC with eliquis
History of statin intolerance (paralysis)
Raynaud's syndrome
Scleroderma on chronic steroids
Neuropathy
Hypothyroidism
History of breast cancer s/p mastectomy, chemo, radiation
Obesity
LOUISE on CPAP
Chronic anemia
ECHO 09/26/24: EF 20-25%, global hypokinesis, mod cLVH, stage 1 diastolic dysfunction, mild , small to mod pericardial effusion to LV, ascending aorta dilatation measuring 4.1cm
Plan:
- Patient had hospitalization at [place] in mid August with acute decompensated heart failure and found to have EF of 20 to 25% by echo. Then underwent subsequent pharmacologic nuclear stress test, also abnormal with post-rest EF of 17%. She
underwent left and right heart cath on 09/26/2024 and was found to have multivessel coronary disease of LAD, OM1, RCA.
- she was felt to be high risk for CABG given comorbidities. plan for high risk PCI of LAD and RCA, possibly later today, but likely in AM.
- She remains chest pain-free overnight. Continue IV heparin, Plavix. of note she has history of intolerance to aspirin with symptoms of severe abd pain, diarrhea, and cold sweats. discussed with IC. plan for 324mg asa on day of cath, with regimen
of plavix, eliquis post cath.
- PCWP at time of cath was 20. Was given 80 mg IV Lasix 09/26 and 40mg IV 09/27 with good response. Cr 1.6, baseline CKD 3B. Was on torsemide 10 mg daily prior to admission. She is back to baseline 3 L nasal cannula. will hold off on further
diuretics until after cath
- CHF education
- In sinus rhythm on review of telemetry overnight
- ECHO 09/26 remains with EF 20-25%. will need repeat echo as OP to reeval EF post revascularization
- Continue GDMT of ischemic cardiomyopathy with Coreg, spironolactone. Outpatient valsartan presently on hold. Could consider addition of SGLT2 inhibitor if cost affordable, will have case management assess
- On Eliquis as an outpatient due to history of PE. Will need to determine anticoagulation/antiplatelet regimen once treatment of coronary disease determined
Progress Note - Care Coordinator
Subjective
Date of Service: September 28, 2024
no issues overnight.
Objective
Labs:
09/28/24 02:16
09/28/24 02:16
Labs
Hgb 9.5 g/dL (12.0-16.0) L 09/28/24 02:16
Hct 29.2 % (37.0-47.0) L 09/28/24 02:16
Plt Count 294 10^3/uL (130-400) 09/28/24 02:16
APTT 89.4 Sec (23.4-35.0) H 09/28/24 02:15
Sodium 136 mmol/L (135-145) 09/28/24 02:16
Potassium 5.1 mmol/L (3.5-5.1) 09/28/24 02:16
BUN 50 mg/dl (7-17) H 09/28/24 02:16
Creatinine 1.6 mg/dL (0.6-1.0) H 09/28/24 02:16
Glucose 105 mg/dl (70-99) H 09/28/24 02:16
Vital Signs and I&O:
Vital Signs
Temp Pulse Resp BP Pulse Ox
98.9 F 88 16 98/50 96
09/28/24 07:58 09/28/24 08:22 09/28/24 08:08 09/28/24 08:22 09/28/24 07:58
Vital Signs
Temp Pulse Resp BP Pulse Ox
98.9 F 88 16 98/50 96
09/28/24 07:58 09/28/24 08:22 09/28/24 08:08 09/28/24 08:22 09/28/24 07:58
Intake & Output
09/26/24 09/27/24 09/28/24 09/29/24
07:59 07:59 07:59 07:59
Intake Total 612 / 612
Output Total 300 / 300 1150 / 1150
Balance -300 / -300 -538 / -538
Physical Exam
Physical Exam
GEN: No distress, awake, alert, oriented x3. On 3 L
HEENT: supple, anicteric, mmm, EOMI
LUNGS: CTA B/L, no wheezes
CV: Reg, S1/S2, no murmur
ABD: soft, BS+, NT/ND
EXT: No cyanosis, clubbing, edema
NEURO: Gross non-focal
SKIN: Warm, pink, dry. No rash
--- NOTE | 2024-09-28 10:06 | CM ---
Priced Farxiga through patient's pharmacy, [facility]. Est. cost of x1 mo supply of Farxiga (brand) is $0. TT to THOMAS to notify.
[2024-09-28] MEDS: HEPARIN 25000 UNITS/250 ML IV (10:45)
--- NOTE | 2024-09-28 11:28 | W.CON.NEPH ---
Consultation
-
Date/Time Consultation Requested: September 28, 2024 at 9 AM
Date/Time Consultation Performed: September 28, 2024 at 11 AM
Requesting Provider: Dr. Blair
Performing Provider: Dr. Alves
Reason for Consultation: PATRIA prevention in the setting of CKD
Medical History
-
Chief Complaint: Elevated creatinine
History of Present Illness:
74-year-old female with extensive past medical history including CAD with prior stents, CKD, COPD, breast cancer s/p mastectomy with chemo/radiation, was recently admitted to [facility] for pericarditis and pericardial effusion which was not
drained (on colchicine). Patient was referred for further cardiac workup at [facility] due to SOB/SALINAS and presents 09/27/23 for diagnostic cardiac catheterization. Severe LAD and RCA disease in setting of low EF 25%. she uses 2 L of oxygen at baseline due
to her history of severe COPD the patient has no history of smoke
Renal consult for PATRIA prevention in the setting of elevated creatinine. Uncertain to the patient's baseline
Past Medical History
Past medical history including CAD with prior stents, CKD, COPD, breast cancer s/p mastectomy with chemo/radiation,
Social History
Tobacco: Non-Smoker
Alcohol: None
Family History
Family History: Not Pertinent
Allergies / Home Medications
Allergy/AdvReac Type Severity Reaction Status Date / Time
adhesive Allergy Blisters Verified 09/26/24 11:33
aspirin Allergy Nausea / Verified 09/26/24 16:15
Vomiting
Beta-Blockers Allergy depression Verified 09/26/24 11:33
(Beta-Adrenergic Bloc
colesevelam (From WelChol) Allergy Nausea / Verified 09/26/24 11:33
Vomiting
ezetimibe (From Zetia) Allergy Muscle pain Verified 09/26/24 11:33
fish oil Allergy Unknown Verified 09/26/24 11:33
Ecnvexe-POW-GgI Reductase Allergy paralysis Verified 09/26/24 11:33
Inhibitor
�Medication �Instructions �Recorded �Confirmed �Type
albuterol sulfate 90 mcg/actuation 2 puff inhalation Q6H PRN COPD 09/26/24 09/26/24 History
aerosol inhaler
apixaban 5 mg tablet (Eliquis) 5 mg PO BID 09/26/24 09/26/24 History
azelastine 137 mcg (0.1 %) nasal 1 spray intranasal BID 09/26/24 09/26/24 History
spray
budesonide 160 mcg-glycopyr 9 2 inh inhalation BID 09/26/24 09/26/24 History
mcg-formot 4.8 mcg/actuation HFA
inhaler (Breztri WorldPass[employer]phere)
carvedilol 3.125 mg tablet 3.125 mg PO BID 09/26/24 09/26/24 History
cetirizine 10 mg tablet 10 mg PO DAILY 09/26/24 09/26/24 History
clopidogrel 75 mg tablet (Plavix) 75 mg PO DAILY 09/26/24 09/26/24 History
colchicine 0.6 mg tablet 0.6 mg PO DAILY 09/26/24 09/26/24 History
cyclobenzaprine 10 mg tablet 10 mg PO HS 09/26/24 09/26/24 History
dexlansoprazole 60 mg 60 mg PO DAILY 09/26/24 09/26/24 History
capsule,biphase delayed release
escitalopram oxalate 20 mg tablet 20 mg PO DAILY 09/26/24 09/26/24 History
escitalopram oxalate 5 mg tablet 5 mg PO DAILY 09/26/24 09/26/24 History
fluticasone propionate 50 2 spray intranasal BID 09/26/24 09/26/24 History
mcg/actuation nasal
spray,suspension
gabapentin 300 mg capsule 300 mg PO HS 09/26/24 09/26/24 History
guaifenesin 600 mg tablet, 600 mg PO BID 09/26/24 09/26/24 History
extended release 12 hr
hydroxychloroquine 400 mg tablet 400 mg PO DAILY 09/26/24 09/26/24 History
leflunomide 10 mg tablet 10 mg PO SUMOWEFRSA 09/26/24 09/26/24 History
leflunomide 10 mg tablet 20 mg PO TUTH 09/26/24 09/26/24 History
levothyroxine 75 mcg tablet 75 mcg PO DAILY 09/26/24 09/26/24 History
lorazepam 1 mg tablet 0.5 mg PO HS PRN anxiety 09/26/24 09/26/24 History
montelukast 10 mg tablet 10 mg PO DAILY 09/26/24 09/26/24 History
multivitamin-ferrous 1 tab PO DAILY 09/26/24 09/26/24 History
fumarate-folic acid 18 mg-400 mcg
tablet (Centrum Women)
nitroglycerin 0.4 mg sublingual 0.4 mg sublingual Q5-15M PRN Chest 09/26/24 09/26/24 History
tablet pain
pantoprazole 40 mg tablet,delayed 40 mg PO DAILY 09/26/24 09/26/24 History
release
spironolactone 25 mg tablet 25 mg PO DAILY 09/26/24 09/26/24 History
sucralfate 100 mg/mL oral 10 ml PO AC 09/26/24 09/26/24 History
suspension
torsemide 10 mg tablet 10 mg PO DAILY 09/26/24 09/26/24 History
valsartan 160 mg tablet 80 mg PO DAILY 09/26/24 09/26/24 History
vitamin B complex 1 tab PO DAILY 09/26/24 09/26/24 History
Review of Systems
-
No chest pain or shortness of breath other than chronic
All other systems: Negative unless noted
Physical Exam
Vital Signs
Vital Signs
Temp Pulse Resp BP Pulse Ox
98.9 F 88 16 98/50 96
09/28/24 07:58 09/28/24 08:22 09/28/24 08:08 09/28/24 08:22 09/28/24 07:58
Lab Results
WBC 8.4 10^3/uL (4.8-10.8) 09/28/24 02:16
RBC 3.50 10^6/uL (4.20-5.40) L 09/28/24 02:16
Hgb 9.5 g/dL (12.0-16.0) L 09/28/24 02:16
Hct 29.2 % (37.0-47.0) L 09/28/24 02:16
Plt Count 294 10^3/uL (130-400) 09/28/24 02:16
Sodium 136 mmol/L (135-145) 09/28/24 02:16
Potassium 5.1 mmol/L (3.5-5.1) 09/28/24 02:16
Chloride 106 mmol/L (98-107) 09/28/24 02:16
Carbon Dioxide 23 mmol/L (22-30) 09/28/24 02:16
BUN 50 mg/dl (7-17) H 09/28/24 02:16
Creatinine 1.6 mg/dL (0.6-1.0) H 09/28/24 02:16
eGFR 33.84 09/28/24 02:16
Glucose 105 mg/dl (70-99) H 09/28/24 02:16
Calcium 10.5 mg/dl (8.4-10.2) H 09/28/24 02:16
Albumin 4.5 g/dl (3.5-5.0) 09/26/24 07:52
Physical Exam
General no acute distress
HEENT no cephalic atraumatic extraocular muscle intact no scleral icterus no JVD neck supple
lungs clear to auscultation bilateral
heart regular S1-S2 positive
abdomen soft nontender positive bowel sounds
extremities no edema pulses present bilateral
Neurologically nonfocal alert and oriented x 3
Skin no lesions no abrasions no petechiae
Psych normal affect no bizarre behavior
Data Reviewed
-
Radiology: Image Personally Visualized and interpreted
Labs: Labs Reviewed by me and Discussed with Patient
Assessment/Plan
-
74-year-old female with extensive past medical history including CAD with prior stents, CKD, COPD, breast cancer s/p mastectomy with chemo/radiation, was recently admitted to [facility] for pericarditis and pericardial effusion which was not
drained (on colchicine). Patient was referred for further cardiac workup at [facility] due to SOB/SALINAS and presents 09/27/23 for diagnostic cardiac catheterization. Severe LAD and RCA disease in setting of low EF 25%. she uses 2 L of oxygen at baseline due
to her history of severe COPD the patient has no history of smoke
Renal consult for PATRIA prevention in the setting of elevated creatinine. Uncertain to the patient's baseline
Impression.
Elevated creatinine uncertain baseline with current creatinine of 1.6 equating to CKD stage IIIb.
Coronary artery disease requiring cardiac catheterization stenting.
Severe COPD on 2 L oxygen.
Pericarditis/pericardial effusion
Plan.
Creatinine is stable postcontrast 48 hours
Okay to proceed with cardiac cath
Will order prophylactic protocol.
Risk-benefit discussed with the patient and she understands
--- NOTE | 2024-09-28 12:25 | CM ---
CM following for DC planning needs.
Met w/ patient at bedside. She is hopeful for CATH tomorrow.
Pt. will have some needs @ home. I am trying to work with her [facility] Sound Effects Manager to increase her home hours. Will discuss w/ medical team to assist w/ this.
Pt. will need to be set up with [facility] @ home for resumption of care. Will work on this.
Finally, patient is requesting rollator walker in the home. I will look in to this.
Will follow.
--- NOTE | 2024-09-28 12:34 | W.PN.HOSP.TC ---
Today's Communication/Plan
-
Plan for cath later today versus tomorrow
Nephrology ordered bicarbonate infusion
Monitor volume status closely
Monitor creatinine closely postprocedure
Assessment / Plan
Assessment / Plan
General: Well Developed, Well Nourished, No Apparent Distress and Obese
HEENT: NormoCephalic, Moist mucous membranes, Atraumatic and Oxygen
Respiratory: Clear
Cardiac: S1/S2 and Regular Rhythm; No Murmur or Rub
GI: Soft, Non Tender, Non Distended and Normal Bowel Sounds; No Organomegaly
Rectal: Deferred by Provider
Musculoskeletal: No Clubbing, No Cyanosis and No Edema
Skin: No Rash
Neuro: Awake, Alert, Oriented, AO x 3, No Motor Deficits and Nonfocal/grossly intact
Psych: Calm
#Unstable angina
#Coronary artery disease status post PCI
Currently chest pain-free
Continue with goal-directed medical therapy-carvedilol, Plavix,
Does not seems to be on statin as allergic with paralysis as stated. Significantly elevated cholesterol.
Nitroglycerin as needed for chest pain
Plan for stage cardiac catheterization later today versus tomorrow
Patient with multivessel coronary artery disease and CT surgery has been consulted and recommended staged PCI
Nephrology also consulted patient with CKD
#Acute on chronic HFrEF
#Ischemic cardiomyopathy
Per outpatient records EF of 20 to 25%
Diuresis per cardiology. Monitor creatinine closely with aggressive diuresis
Continue with beta-jas, Plavix, Aldactone
Diuresis per cardiology
#Chronic kidney disease stage 3b
Monitor creatinine closely. Creatinine 1.6
Hold valsartan for now. Avoid hypotension
Avoid nephrotoxin
Obtain records from PCP for baseline creatinine. Per patient she was told by primary doctor about elevated creatinine.
Patient creatinine 1.3 in 05/20
#Scleroderma
#Raynaud's phenomenon
Chronic immunosuppressive state
Continue with leflunomide and Plaquenil
#COPD
#Chronic hypoxic respiratory failure
#Asthma
#Chronic dyspnea
Continue with a home bronchodilator regimen
Continue with Singulair
#History of pulmonary embolism
#Chronic coagulopathy with Eliquis
Eliquis is currently being held as cardiac catheterization or surgery. Continue with heparin infusion.
Patient PE was 6 months ago
Patient is due to see her primary tower erector helper end of the month
#Pericarditis
# History of effusion
Currently patient on colchicine
Vital signs are currently stable
#Neuropathy
Continue patient gabapentin
#Hypothyroidism
Continue with Synthroid
#Mood disorder
Continue with Lexapro
DVT prophylaxis heparin drip
Full code. Patient is Jehovah witness and stated will refuse blood transfusion.
Anticipated Discharge: > 48 hours
Subjective/Interval History
-
Date of Service: September 28, 2024
States has increased amount of urine yesterday
Currently comfortable
Denies any chest pain shortness of breath
Objective Data
-
Labs:
Laboratory Results
09/28/24 09/28/24
02:15 02:16
WBC 8.4
Hgb 9.5 L
Hct 29.2 L
Plt Count 294
APTT 89.4 H
Sodium 136
Potassium 5.1
Chloride 106
Carbon Dioxide 23
BUN 50 H
Creatinine 1.6 H
Glucose 105 H
Calcium 10.5 H
Vital Signs:
Vital Signs
Temp Pulse Resp BP Pulse Ox
97.6 F 88 18 98/50 95
09/28/24 11:39 09/28/24 08:22 09/28/24 11:39 09/28/24 08:22 09/28/24 11:39
I&O
0609/28/24 09/29/24
06:59 06:59 06:59
Intake Total 612 / 612
Output Total 300 / 300 1150 / 1150
Balance -300 / -300 -538 / -538
[2024-09-28] MEDS: DELTASONE 7.5 MG PO (17:41)
--- NOTE | 2024-09-28 19:12 | PTCARENOTE ---
~[id number]: Handoff report received from nightshift RN. Johannyetn AOx4 but forgetful at times, NSR BBB on tele, 80s-90s, SBP 90s-100s, patient satting >95% on 3L NC (baseline). Patient c/o generalized pain at this time, however does not want anything
for it. Per Dr Davis, patient granddaughter is to bring in leflunomide for patient's rheumatoid arhtristis, granddaughter made aware. Heparin gtt therapeutic at this time and infusing. All needs met at this time, call benz within reach.
~3526-8244: Granddaughter brought leflunomide in however the pills are . Dr. Davis made aware. Patient called kiln packer to double check what she is supposed to be taking because patient states 'She changed my meds over but I dont have my
list and I forget what it's called that I am taking.' After speaking with her rheumotologist, patient granddaughter informed this RN that patient is to be taking hydroxychloroquine 400mg daily and prednisone 7.5mg daily. Dr. Davis made aware. Home
med list also updated.
~[id number]: Granddaughter at bedside visiting. Plan for high risk PCI in AM. heaprin gtt infusing per order. VSS at this time. handoff report given to nightshift RN.
[2024-09-28] MEDS: FLEXERIL 10 MG PO (21:26)
[2024-09-28] MEDS: NEURONTIN 300 MG PO (21:26)
[2024-09-28] MEDS: ATIVAN 0.5 MG PO (22:54)
--- NOTE | 2024-09-28 23:40 | PTCARENOTE ---
Patient received at change of shift resting in the bed. Heparin gtt infusing at 1100units/hr. Dr. Wick in to discuss high risk PCI planned for tomorrow. Patient verbalized understanding that she will be NPO at midnight. Sinus rhythm on telemetry.
Oxygen saturation on 3L NC 97-98%. The patient denies chest pain or pressure. Anxiously awaits cardiac cath procedure tomorrow. Call benz within reach. Care ongoing.
[2024-09-29] VITALS (18 sets, daily range): BP systolic 92–124; BP diastolic 49–105; O2SAT 99; BMI 30.6
[2024-09-29] MEDS: SYNTHROID 75 MCG PO (03:48)
[2024-09-29 04:19] LABS: Hematocrit 30.9 % (37.0-47.0); Hemoglobin 9.7 g/dL (12.0-16.0); Mean Corp Hgb Conc. 31.4 g/dL (33.0-37.0); Mean Corpuscular Hgb 26.5 pg (27.0-31.0); Mean Corpuscular Volume 84.4 fL (81.0-99.0); Mean Platelet Volume 9.5 fL (7.4-10.4); Platelet Count 287 10^3/uL (130-400); Red Blood Cell Count 3.66 10^6/uL (4.20-5.40); Red Cell Dist. Width 15.3 % (11.5-14.5); White Blood Cell Count 8.2 10^3/uL (4.8-10.8)
[2024-09-29 04:27] LABS: APTT 86.3 Sec (23.4-35.0)
[2024-09-29 04:38] LABS: Blood Urea Nitrogen 40 mg/dl (7-17); Carbon Dioxide 24 mmol/L (22-30); Chloride 106 mmol/L (98-107); Estimated Creatinine Clearance 38 ml/min; Glucose 122 mg/dl (70-99); Potassium 5.4 mmol/L (3.5-5.1); Sodium 140 mmol/L (135-145); eGFR 39.73
[2024-09-29] MEDS: ZOFRAN 4 MG IV (05:02)
[2024-09-29] MEDS: ASPIRIN 325 MG PO (06:00)
[2024-09-29] MEDS: SODIUM BICARBONATE 1150 MEQ IV (06:19)
--- NOTE | 2024-09-29 06:34 | PTCARENOTE ---
Aspirin given as ordered and sodium bicarbonate gtt infusing as ordered prior to high risk PCI. Report given to fish farm laborer RN.
[2024-09-29] MEDS: HEPARIN 25000 UNITS/250 ML IV ×2 (06:38→21:24)
[2024-09-29 07:55] LABS: ACT-LR - POC 266 Seconds (116-155)
[2024-09-29] MEDS: SYMBICORT 160/4.5 MCG INHALER INH (08:27)
[2024-09-29] MEDS: SPIRIVA RESPIMAT 2.5 MCG INH (08:27)
[2024-09-29 08:33] LABS: ACT-LR - POC 347 Seconds (116-155)
[2024-09-29 08:56] LABS: ACT-LR - POC > 397 Seconds (116-155)
[2024-09-29 09:02] LABS: ACT-LR - POC 348 Seconds (116-155)
[2024-09-29] MEDS: CARAFATE SUSPENSION 1 GM PO ×2 (09:53→17:25)
--- NOTE | 2024-09-29 10:53 | ITS.CL.CATH ---
Folder Machine - Catheterization
Cardiac Catheterization
Procedure Report:
CORONARY INTERVENTION OF LAD
Date of Procedure: September 29, 2024
Referring: Miguel Goodman NP and Rodger Bacon MD
PROCEDURES:
1. Left heart catheterization, selective left coronary angiogram.
2. Moderate sedation.
3. Successful percutaneous coronary artery intervention of heavily calcified and diffusely disease up to 50% in the proximal to mid LAD and 95% stenosis in the mid to distal LAD at the level of D2 with 2 overlapping 2.5 x 30 mm and 2.25 x 30 mm
Medtronic Barry drug-eluting stents, postdilated using 3.0 x 12 mm NC Euphora balloon at 20 orly proximally and 2.75 x 8 mm at 18 orly distally (focus on the tightest portion, 10 to 12 mm proximal to the distal edge) with an excellent angiographic
result.
4. Intravascular ultrasound (IVUS)
INDICATION: Mary is a 74 F with HTN, HLD, multiple drug allergies, Raynaud's syndrome, scleroderma on chronic steroids, CKD St 3B, CAD with prior LAD stents in 2004 at [facility], recent hospitalization at [facility] in mid August with ADHF found to
have LVEF 20-25% with pharm nuclear scan abnormal with post stress LVEF 17% who was referred for left and right heart cath. On September 26, 2024. Heart catheterization at that time showed significant LAD and RCA disease with heavily calcified vessels.
We had stopped to optimize her filling pressures in the setting of CKD and obtain a CT surgery consult for a heart team approach. She was deemed high risk for surgery and test being referred back for PCI in a staged fashion. She is coming back to
the lab today for planned PCI of LAD.
ACCESS: Right common femoral artery, 7sheath, resepctively, under US guidance using micropuncture kit.
HEMODYNAMICS : (mmHg)
AO (s/d) : 126/69
LVEDP : 32
No significant gradient across the aortic valve to suggest aortic stenosis.
CORONARY ANATOMY:
Dominance: Right
Left Main Trunk (LMT): Large caliber vessel that gives rise to the LAD and LCx branches. The terminal left main has 20% stenosis.
Left Anterior Descending Artery (LAD): Large caliber vessel that gives off two major diagonal branches as it courses along the anterior inter-ventricular groove before reaching the apex. The proximal to mid-LAD is heavily calcified and diffusely
diseased 50% then then a 95% stenosis at the second diagonal. The first major diagonal which is a small caiber vessel has ostial 70% stenosis. The apical LAD is diffusely diseased. Proximal to Mid LAD is iFR positive at 0.81
Left Circumflex Artery (LCx): Large caliber vessel that gives off a first large early bifurcating major obtuse marginal (OM) branches as it courses along the atrio-ventricular (AV) groove. The inferior limb of the OM1 has an ostial 70% stenosis.
The superior limb is the bigger of the two vessels.
Right Coronary Artery (RCA): Large caliber dominant vessel that gives rise to large posterior descending artery (RPDA) that reaches the apex and postero-lateral ventricular (RPLV) branches distally. The mid-RCA has a mid-vessel long 80% stenosis.
CORONARY INTERVENTION: The left coronary artery was selectively engaged using a 7 Albanian EBU 3.75 guide catheter. Additional heparin was given to maintain a therapeutic ACT throughout the case. Patient had received 325 mg of aspirin this morning.
We used a 190 cm 0.014 run-through wire and successfully navigated this into the distal LAD. We initially attempted to predilated the 95% mid LAD stenosis with a 2.25 x 15 mm semicompliant balloon however we could not advance this past the tightest
portion. A 6 Albanian guide liner was used for support and through GuideLiner support we were able to advance the balloon. Initially with nominal pressure and had significant waist which was overcome with a prolonged balloon at a higher pressure.
We attempted to then bring in a [place] IVUS Walsh eye catheter to assess degree of calcium and need for calcium modification and to also help with sizing however we could not advance the IVUS catheter beyond the proximal portion. In the proximal
portion we saw significant plaque burden and about 90 degrees of calcified plaque. No obstructive lesions were noted in the left main. Based on this we decided to further predilate using a 2.5 x 20 mm NC balloon which also expanded well. We
subsequently stented the distal lesion with a 2.25 x 30 mm Medtronic Barry drug-eluting stent and overlapped proximally with a 2.5 x 30 mm Medtronic Burak drug-eluting stents. We initially postdilated the 2.25 stent with a 2.5 x 20 mm NC Euphora
balloon at 18 orly distally and 22 orly proximally. We then further postdilated the tightest portion at the level of D2 with a 2.75 x 8 mm NC balloon at 18 orly with good expansion. Proximally we postdilated with a 3.0 x 12 mm NC Euphora balloon at
18 orly with an excellent angiographic result. Patient was loaded with 300 mg of Plavix at the end of the case. No acute complications. Patient tolerated the procedure well.
SEDATION: 60 minutes of procedural sedation was utilized. IV Midazolam and IV Fentanyl were administered. An independent registered medical assistant was present to assist with and help manage the patient's level of consciousness and physiologic status.
RADIATION SUMMARY: Fluoro Time (min): 18.8 dose (mGy): 656.3, DAP (Gy.cm2) : 42.4
Closure Device: There were no immediate intra-procedural complications. 7Fr RCFA closure post groin shot with successful perclose.
CONCLUSIONS
1. Successful percutaneous coronary artery intervention of heavily calcified and diffusely disease up to 50% in the proximal to mid LAD and 95% stenosis in the mid to distal LAD at the level of D2 with 2 overlapping 2.5 x 30 mm and 2.25 x 30 mm
Medtronic Barry drug-eluting stents, postdilated using 3.0 x 12 mm NC Euphora balloon at 20 orly proximally and 2.75 x 8 mm at 18 orly distally (focus on the tightest portion, 10 to 12 mm proximal to the distal edge) with an excellent angiographic
result.
2. Elevated LVEDP at 32mmHG.
RECOMMENDATIONS
1. Bedrest per protocol post groin access.
2. Continue aggressive medical therapy and risk factor modification for secondary CAD prevention.
3. Hydrate with normal saline to mitigate the risk of contrast-induced acute kidney injury. She will also need aggressive diuresis given significantly elevated LVEDP still at 32 mmHg to optimize her filling pressures.
4. Given significant aspirin sensitivity with abdominal pain and explosive diarrhea plan post PCI is to continue Plavix 75 mg daily indefinitely and resume Eliquis likely tomorrow, September 30, 2024 as long as there are no groin issues which she is on
for her chronic PE. Continue optimization of goal-directed medical therapy for severe ischemic cardiomyopathy.
5. As an outpatient we will need to look into a nonstatin lipid-lowering medication given significantly elevated LDL with a statin and Zetia allergy.
6. Plan to stage RCA PCI either next week if she remains in-house versus as an outpatient.
7. Outpatient follow-up with Dr. Bacon at [facility]. Will need reassessment of LVEF post complete revascularization to assess need for ICD for primary prevention in the setting of severely reduced LV systolic function.
8. Referral for outpatient cardiac rehab.
Copy to: Miguel Goodman NP and Rodger Bacon MD
Qi Wick MD.
--- NOTE | 2024-09-29 12:01 | W.PN.NEPH.PH ---
Today's Communication / Plan
-
calcium w/u
Assessment/Plan
-
74-year-old female with extensive past medical history including CAD with prior stents, CKD, COPD, breast cancer s/p mastectomy with chemo/radiation, was recently admitted to [facility] for pericarditis and pericardial effusion which was not
drained (on colchicine). Patient was referred for further cardiac workup at [facility] due to SOB/SALINAS and presents 09/27/23 for diagnostic cardiac catheterization. Severe LAD and RCA disease in setting of low EF 25%. she uses 2 L of oxygen at baseline due
to her history of severe COPD the patient has no history of smoke
Renal consult for PATRIA prevention in the setting of elevated creatinine. Uncertain to the patient's baseline
Impression.
KELSEY with uncertain baseline
Coronary artery disease requiring cardiac catheterization stenting.
Severe COPD on 2 L oxygen.
Pericarditis/pericardial effusion, chronic
Scleroderma unknown if limited or systemic
Rheumatoid arthritis
Hypercalcemia
Heart failure reduced ejection fraction 25%
Hypotension
History of pulmonary embolism
History of breast cancer right, in remission
Plan.
Received IV Lasix today
Eventual PCI RCA needed
Hypercalcemia workup ordered
Pamidronate 30 mg today
No IV fluids given heart failure and elevated pressures on [facility]
Eventual SGLT2
Unlikely she will tolerate RAASi given blood pressure
High risk situation
-
-
Date of Service: September 29, 2024
CC / HPI / ROS
-
Chief Complaint:
KELSEY
History of Present Illness:
KELSEY/Cr down to 1.4
Calcium now up to 11.0
K up 5.4
BP low
s/p [facility] 09/29 for LAD PCI, LVEDP 32
Review of Systems:
no CP/SOB
Labs
-
Labs:
WBC 8.2 10^/uL (4.8-10.8) 09/29/24 03:58
RBC 3.66 10^6/uL (4.20-5.40) L 09/29/24 03:58
Hgb 9.7 g/dL (12.0-16.0) L 09/29/24 03:58
Hct 30.9 % (37.0-47.0) L 09/29/24 03:58
Plt Count 287 10^3/uL (130-400) 09/29/24 03:58
Sodium 140 mmol/L (135-145) 09/29/24 03:58
Potassium 5.4 mmol/L (3.5-5.1) H 09/29/24 03:58
Chloride 106 mmol/L (98-107) 09/29/24 03:58
Carbon Dioxide 24 mmol/L (22-30) 09/29/24 03:58
BUN 40 mg/dl (7-17) H 09/29/24 03:58
Creatinine 1.4 mg/dL (0.6-1.0) H 09/29/24 03:58
eGFR 39.73 09/29/24 03:58
Glucose 122 mg/dl (70-99) H 09/29/24 03:58
Calcium 11.0 mg/dl (8.4-10.2) H 09/29/24 03:58
Albumin 4.5 g/dl (3.5-5.0) 09/26/24 07:52
Physical Exam
-
Vital Signs:
Vital Signs
Temp Pulse Resp BP Pulse Ox
97.5 F 75 16 102/61 94
09/29/24 11:26 09/29/24 11:26 09/29/24 11:26 09/29/24 11:26 09/29/24 11:26
Cardiovascular:: Regular rate and rhythm
Respiratory:: Bilateral: Coarse
Lung Excursion:: Normal
Abdomen:: Nontender and Soft
Bowel Sounds:: Normal
Extremity Edema:: +1: Bilateral:
--- NOTE | 2024-09-29 12:22 | W.PN.HOSP.TC ---
Today's Communication/Plan
-
Holding Aldactone
Monitor potassium
Monitor creatinine postcontrast exposure
Aspirin Plavix
Additional catheterization staging per cardiology
Diuresis ongoing
Assessment / Plan
Assessment / Plan
General: Well Developed, Well Nourished, No Apparent Distress and Obese
HEENT: NormoCephalic, Moist mucous membranes, Atraumatic and Oxygen
Respiratory: Clear
Cardiac: S1/S2 and Regular Rhythm; No Murmur or Rub
GI: Soft, Non Tender, Non Distended and Normal Bowel Sounds; No Organomegaly
Rectal: Deferred by Provider
Musculoskeletal: No Clubbing, No Cyanosis and No Edema
Skin: No Rash
Neuro: Awake, Alert, Oriented, AO x 3, No Motor Deficits and Nonfocal/grossly intact
Psych: Calm
#Unstable angina
#Coronary artery disease status post PCI
Currently chest pain-free
Continue with goal-directed medical therapy-carvedilol, Plavix,
Does not seems to be on statin as allergic with paralysis as stated. Significantly elevated cholesterol.
Nitroglycerin as needed for chest pain
Status post cardiac catheterization status post REBECA to LAD. Elevated left ventricular end-diastolic pressure
Patient with multivessel coronary artery disease and CT surgery has been consulted and recommended staged PCI
Continue with antiplatelet regimen with Plavix. Aspirin added patient seems to be tolerating it.
Nephrology also consulted patient with CKD
#Acute on chronic HFrEF
#Ischemic cardiomyopathy
Per outpatient records EF of 20 to 25%
Diuresis per cardiology. Monitor creatinine closely with aggressive diuresis
Continue with beta-jas, Plavix, Aldactone
Diuresis per cardiology
#Chronic kidney disease stage 3b
# Hyperkalemia-holding Aldactone for now
Monitor creatinine closely. Creatinine 1.6
Hold valsartan for now. Avoid hypotension
Avoid nephrotoxin
Obtain records from PCP for baseline creatinine. Per patient she was told by primary doctor about elevated creatinine.
Patient creatinine 1.3 in 05/20
# Mild hypercalcemia
Blood work ordered per nephrology.
Status post 30 mg pamidronate
#Scleroderma
#Raynaud's phenomenon
Chronic immunosuppressive state
Continue with Plaquenil and prednisone 7.5 mg daily
#COPD
#Chronic hypoxic respiratory failure
#Asthma
#Chronic dyspnea
Continue with a home bronchodilator regimen
Continue with Singulair
#History of pulmonary embolism
#Chronic coagulopathy with Eliquis
Eliquis is currently being held as cardiac catheterization or surgery. Continue with heparin infusion.
Patient PE was 6 months ago
Patient is due to see her primary paleology professor end of the month
#Pericarditis
# History of effusion
Currently patient on colchicine
Vital signs are currently stable
#Neuropathy
Continue patient gabapentin
#Hypothyroidism
Continue with Synthroid
#Mood disorder
Continue with Lexapro
DVT prophylaxis heparin drip
Full code. Patient is Jehovah witness and stated will refuse blood transfusion.
PT eval
Anticipated Discharge: > 48 hours
Subjective/Interval History
-
Date of Service: September 29, 2024
Denies any chest pain currently
Objective Data
-
Labs:
Laboratory Results
09/29/24 09/29/24 09/29/24
03:58 11:24 12:10
WBC 8.2
Hgb 9.7 L
Hct 30.9 L
Plt Count 287
APTT 86.3 H Pending
Sodium 140
Potassium 5.4 H
Chloride 106
Carbon Dioxide 24
BUN 40 H
Creatinine 1.4 H
Glucose 122 H
Calcium 11.0 H Pending
Vital Signs:
Vital Signs
Temp Pulse Resp BP Pulse Ox
97.5 F 75 16 102/61 94
09/29/24 11:26 09/29/24 11:26 09/29/24 11:26 09/29/24 11:26 09/29/24 11:26
I&O
09/28/24 09/29/24 09/30/24
06:59 06:59 06:59
Intake Total 612 / 612 132 / 132
Output Total 1150 / 1150 1800 / 1800
Balance -538 / -538 -1668 / -1668
Data Reviewed
-
Total Time Spent with Patient (in minutes): 55
[2024-09-29] MEDS: AREDIA 260 MG IV (13:45)
[2024-09-29] MEDS: MUCINEX 600 MG PO ×2 (13:52→20:27)
[2024-09-29] MEDS: DELTASONE 7.5 MG PO (13:52)
[2024-09-29] MEDS: LEXAPRO 5 MG PO (13:53)
[2024-09-29] MEDS: LEXAPRO 20 MG PO (13:53)
[2024-09-29] MEDS: SINGULAIR 10 MG PO (13:54)
[2024-09-29] MEDS: COLCHICINE 0.6 MG PO (13:54)
[2024-09-29] MEDS: PLAQUENIL 400 MG PO (13:55)
[2024-09-29] MEDS: ZYRTEC 10 MG PO (13:58)
[2024-09-29] MEDS: PLAVIX PO (13:59)
[2024-09-29] MEDS: PROTONIX 40 MG PO (13:59)
[2024-09-29] MEDS: COREG 3.125 MG PO ×2 (13:59→20:29)
[2024-09-29] MEDS: CARAFATE SUSPENSION PO (14:01)
[2024-09-29 14:15] LABS: APTT 66.7 Sec (23.4-35.0)
--- NOTE | 2024-09-29 14:28 | CM ---
Addendum entered by SOPHIE Collier 09/29/24 16:40:
Collaborated with PT. Pt. was quite indep. with therapy and no needs are anticipated.
Home care already arranged and patient has care in the home from 10a-3p.
Original Note:
CM following for DC planning needs.
Met w/ patient at bedside. She is post-CATH. She reports that she is feeling well.
DC plan reviewed. Plan is anticipated for home w/ Jarad VELAZQUEZ. I have sent referral for resumption of care and patient has been accepted. CM to update them on DC date.
Pt. would benefit from PT evaluation to ascertain functional status post CATH. Based on their evaluation, CM to consult with MD regarding documenting need for add'l support in the home. Per conversation w/ Carla Trotter, , patient
currently has 49h/wk but they are hoping to increase this to 21h/d. Will need MD documentation stating necessity of increased hours. Documentation by therapy for needs at home will be helpful in this regard.
Pt. had requested a stand up rollator walker. I did place call to multiple DME companies and have determined that this is not covered by insurance. Pt. does have a regular rollator walker, a RW and a SPC in the home. I did notify pt. of this and
reviewed [employer] of this rollator (approx. $150).
CM will cont. to follow.
[2024-09-29 15:18] LABS: Calcium 9.6 mg/dl (8.4-10.2); Phosphorus 3.4 mg/dl (2.5-4.5)
[2024-09-29 18:36] LABS: Vitamin D, 25-OH*** 30.7 ng/mL (30-80)
[2024-09-29] MEDS: SYMBICORT 160/4.5 MCG INHALER 2 PUFF INH (19:16)
[2024-09-29] MEDS: NEURONTIN 300 MG PO (21:24)
[2024-09-29] MEDS: FLEXERIL 10 MG PO (21:24)
[2024-09-30] VITALS (15 sets, daily range): BP systolic 75–159; BP diastolic 39–119; BMI 30.3
[2024-09-30 04:33] LABS: Hematocrit 28.9 % (37.0-47.0); Hemoglobin 9.1 g/dL (12.0-16.0); Mean Corp Hgb Conc. 31.5 g/dL (33.0-37.0); Mean Corpuscular Hgb 26.5 pg (27.0-31.0); Mean Corpuscular Volume 84.3 fL (81.0-99.0); Mean Platelet Volume 10.7 fL (7.4-10.4); Platelet Count 255 10^3/uL (130-400); Red Blood Cell Count 3.43 10^6/uL (4.20-5.40); Red Cell Dist. Width 15.5 % (11.5-14.5); White Blood Cell Count 8.2 10^3/uL (4.8-10.8)
[2024-09-30 04:48] LABS: APTT 60.8 Sec (23.4-35.0)
[2024-09-30 05:01] LABS: Blood Urea Nitrogen 42 mg/dl (7-17); Calcium 10.5 mg/dl (8.4-10.2); Carbon Dioxide 28 mmol/L (22-30); Chloride 101 mmol/L (98-107); Estimated Creatinine Clearance 36 ml/min; Glucose 102 mg/dl (70-99); Potassium 5.3 mmol/L (3.5-5.1); Sodium 137 mmol/L (135-145); eGFR 36.57
[2024-09-30] MEDS: SYNTHROID 75 MCG PO (06:02)
--- NOTE | 2024-09-30 06:41 | PTCARENOTE ---
Pt NSR on monitor. Heparin gtt restarted per order. Rt groin post cath with small ecchymotic area. No pain or discomfort. Pt ambulates with x assist. safety measures in place
[2024-09-30] MEDS: SYMBICORT 160/4.5 MCG INHALER 2 PUFF INH ×2 (07:25→19:13)
[2024-09-30] MEDS: SPIRIVA RESPIMAT 2.5 MCG 2 PUFF INH (07:25)
[2024-09-30] MEDS: CARAFATE SUSPENSION 1 GM PO ×3 (07:49→16:52)
[2024-09-30] MEDS: MUCINEX 600 MG PO ×2 (08:17→20:03)
[2024-09-30] MEDS: DELTASONE 7.5 MG PO (08:17)
[2024-09-30] MEDS: LEXAPRO 5 MG PO (08:17)
[2024-09-30] MEDS: PROTONIX 40 MG PO (08:17)
[2024-09-30] MEDS: ZYRTEC 10 MG PO (08:18)
[2024-09-30] MEDS: SINGULAIR 10 MG PO (08:18)
[2024-09-30] MEDS: COLCHICINE 0.6 MG PO (08:18)
[2024-09-30] MEDS: PLAVIX 75 MG PO (08:18)
[2024-09-30] MEDS: PLAQUENIL 400 MG PO (08:18)
[2024-09-30] MEDS: LEXAPRO 20 MG PO (08:19)
[2024-09-30] MEDS: LOW STRENGTH ASPIRIN 81 MG PO (08:19)
[2024-09-30] MEDS: COREG 3.125 MG PO ×2 (08:20→20:03)
--- NOTE | 2024-09-30 09:38 | W.PN.NEPH.PH ---
Today's Communication / Plan
-
lasix
Assessment/Plan
-
74-year-old female with extensive past medical history including CAD with prior stents, CKD, COPD, breast cancer s/p mastectomy with chemo/radiation, was recently admitted to [facility] for pericarditis and pericardial effusion which was not
drained (on colchicine). Patient was referred for further cardiac workup at [facility] due to SOB/SALINAS and presents 09/27/23 for diagnostic cardiac catheterization. Severe LAD and RCA disease in setting of low EF 25%. she uses 2 L of oxygen at baseline due
to her history of severe COPD the patient has no history of smoke
Renal consult for PATRIA prevention in the setting of elevated creatinine. Uncertain to the patient's baseline
Impression.
KELSEY with uncertain baseline
Coronary artery disease requiring cardiac catheterization stenting.
Severe COPD on 2 L oxygen.
Pericarditis/pericardial effusion, chronic
Scleroderma unknown if limited or systemic
Rheumatoid arthritis
Hypercalcemia
Heart failure reduced ejection fraction 25%
Hypotension
History of pulmonary embolism
History of breast cancer right, in remission
Plan.
IV Lasix today
Eventual PCI RCA needed, but not until after weekend if Cr remains stable
Hypercalcemia workup pending
Pamidronate 30 mg 09/29
Eventual SGLT2
Unlikely she will tolerate RAASi given low blood pressure
High risk situation
-
-
Date of Service: September 30, 2024
CC / HPI / ROS
-
Chief Complaint:
KELSEY
History of Present Illness:
KELSEY/Cr stable 1.5
Calcium down to 10.5. received Areida 09/29
K up 5.3
BP still low
responded to lasix for high filling pressures/CHF
on 3L O2 chronically (at home)
s/p C 09/29 for LAD PCI, LVEDP 32
Review of Systems:
no CP/SOB
Labs
-
Labs:
WBC 8.2 10^3/uL (4.8-10.8) 09/30/24 03:54
RBC 3.43 10^6/uL (4.20-5.40) L 09/30/24 03:54
Hgb 9.1 g/dL (12.0-16.0) L 09/30/24 03:54
Hct 28.9 % (37.0-47.0) L 09/30/24 03:54
Plt Count 255 10^3/uL (130-400) 09/30/24 03:54
Sodium 137 mmol/L (135-145) 09/30/24 03:54
Potassium 5.3 mmol/L (3.5-5.1) H 09/30/24 03:54
Chloride 101 mmol/L (98-107) 09/30/24 03:54
Carbon Dioxide 28 mmol/L (22-30) 09/30/24 03:54
BUN 42 mg/dl (7-17) H 09/30/24 03:54
Creatinine 1.5 mg/dL (0.6-1.0) H 09/30/24 03:54
eGFR 36.57 09/30/24 03:54
Glucose 102 mg/dl (70-99) H 09/30/24 03:54
Calcium 10.5 mg/dl (8.4-10.2) H 09/30/24 03:54
Phosphorus 3.4 mg/dl (2.5-4.5) 09/29/24 13:50
Albumin 4.5 g/dl (3.5-5.0) 09/26/24 07:52
Physical Exam
-
Vital Signs:
Vital Signs
Temp Pulse Resp BP Pulse Ox
98.2 F 78 18 98/58 96
09/30/24 08:23 09/30/24 08:23 09/30/24 08:23 09/30/24 08:23 09/30/24 08:55
Cardiovascular:: Regular rate and rhythm
Respiratory:: Bilateral: Coarse
Lung Excursion:: Normal
Abdomen:: Nontender and Soft
Bowel Sounds:: Normal
Extremity Edema:: +2: Bilateral:
--- NOTE | 2024-09-30 09:52 | PTCARENOTE ---
received patient this am, monitor shows NSR, VSS. IV heparin @ 1200units/hr. started 24 hour urine at 0930, signs were put up in room and urine on ice.
[2024-09-30] MEDS: LASIX 80 MG IV (09:57)
[2024-09-30] MEDS: FLUSH (NSS) 1 FLUSH IV (09:59)
--- NOTE | 2024-09-30 10:02 | W.PN.CARDCBS ---
Addendum entered and electronically signed by Vargas Kim MD 09/30/24 10:58:
I saw and examined the patient.
The [employer]ber's note was reviewed and I agree with the note.
Comment:
GEN: No distress, awake, Ox3
HEENT: supple, anicteric, mmm
LUNGS: CTA, no wheezes/rales
CV: Reg, S1/S2, 05/01 syst LSB, no gallop
ABD: soft, BS+, NT/ND
EXT: No edema
NEURO: Gross non-focal
SKIN: No rash
Plan:
Overall looks well. Creatinine is overall stable at 1.5. Remains volume overloaded. Lasix 80 mg IV given x 1.
Continue to hold valsartan and Aldactone.
Tentative plan would be for PCI of RCA Wednesday.
Would hold Eliquis for now and resume heparin, Plavix, and aspirin.
If patient is not stable for PCI Wednesday with then resume Eliquis and Plavix.
Hemoglobin stable at 9.1.
Remains on colchicine and prednisone and hydroxychloroquine
Original Note:
Today's Communication / Plan
-
Continue heparin, Plavix, baby aspirin
Tentative PCI on 10/02/2024 or 10/03/2024 pending renal function
Continue to hold valsartan and Aldactone
Continue carvedilol
Ongoing IV diuresis per nephrology
Impression / Plan
-
Primary Digital Marketing Apprentice: Dr. Rodger Bacon
Assessment:
Multivessel CAD
Status post LAD PCI 2004 at [facility]
s/p 2 overlapping 2.5 x 30 mm and 2.25 x 30 mm [employer] [place] drug-eluting stents 09/29/2024
ICM, EF 20 to 25%
Acute on chronic HFrEF with elevated filling pressures on catheterization 09/29/2024
CKD3B
HTN
HLD
COPD on chronic 3L supp O2
History of PE
Chronic OAC with eliquis
History of statin intolerance (paralysis)
Raynaud's syndrome
Scleroderma on chronic steroids
Neuropathy
Hypothyroidism
History of breast cancer s/p mastectomy, chemo, radiation
Obesity
LOUISE on CPAP
Chronic anemia
ECHO 09/26/24: EF 20-25%, global hypokinesis, mod cLVH, stage 1 diastolic dysfunction, mild , small to mod pericardial effusion to LV, ascending aorta dilatation measuring 4.1cm
Cardiac cath 09/2024: LM: 20% stenosis. LAD: Proximal to mid heavily calcified with 50% followed by 95% stenosis at second diagonal s/p 2 overlapping 2.5 x 30 mm and 2.25 x 30 mm [employer] [place] drug-eluting stents (09/29/2024). First diagonal ostial
70% stenosis. Left circumflex: Ostial 70% stenosis. RCA: Mid 80% stenosis.
Hemodynamics:RA (m) : 17, RV (s/d,m) : 52/11, 14, PA (s/d, m) : 52/26, 37, PCWP (m) : 20, PA saturation: 61.5% on room air, AO saturation: 88.9% on room air, RA saturation: 57.2% on room air, Cardiac Output : 5.34 L/min by Zehra calculation, Cardiac
Index : 2.77 L/min/m-2 by Zehra calculation, Systemic vascular resistance: 943 dsc^(-5), Pulmonary vascular resistance: 3.56 saucedo unit
Plan:
- Patient had hospitalization at [facility] in mid August 2024 with acute decompensated heart failure and found to have EF of 20 to 25% by echo. Then underwent subsequent pharmacologic nuclear stress test, also abnormal with post-rest EF of 17%. She
underwent left and right heart cath on 09/26/2024 and was found to have multivessel coronary disease of LAD, OM1, RCA.
- she was felt to be high risk for CABG given comorbidities. Patient has baseline CKD 3B.
- s/p proximal to mid LAD overlapping 2.5 x 30 mm and 2.25 x 30 mm [employer]onic [place] drug-eluting stents 09/29/2024.
- Plan for staged intervention of RCA. Possibly next week pending renal function.
- She remains chest pain-free post PCI. EKG stable showing sinus rhythm with left bundle branch block.
- continue IV heparin, Plavix and baby ASA. of note she has history of intolerance to aspirin with symptoms of severe abd pain, diarrhea, and cold sweats. discussed with IC. However patient is now tolerating 81 mg of aspirin without difficulty.
- Will need eventual resumption of Eliquis given history of PE once no additional invasive interventions to be performed
- Ongoing diuresis secondary to elevated filling pressures during recent cardiac catheterizations. Nephrology on board assisting in dosing of diuresis to help prevent contrast-induced nephropathy given CKD stage IIIb and assist in diuresis given
concern of acute on chronic heart failure. Current Cr 1.5. Patient was provided 40 mg IV Lasix 09/30/2024. {Was on torsemide 10 mg daily prior to admission}.
- She is back to baseline 3 L nasal cannula.
- CHF education
- In sinus rhythm on review of telemetry
- ECHO 09/26 remains with EF 20-25%. will need repeat echo as OP to reeval EF post revascularization
- Continue GDMT of ischemic cardiomyopathy with Coreg. Outpatient valsartan and Aldactone presently on hold given CKD and hypotension. Could consider addition of SGLT2 inhibitor if cost affordable and renal function remains stable
- On Eliquis as an outpatient due to history of PE. Will need to determine anticoagulation/antiplatelet regimen once treatment of coronary disease determined
- Continue colchicine given chronic pericarditis
Progress Note - Digital Marketing Apprentice
Subjective
Date of Service: September 30, 2024
Patient seen and examined. Patient sitting up in chair on oxygen. Overall reports she is feeling well. She was able to ambulate around unit this morning and noted some weakness in her legs otherwise felt well.
Objective
Labs:
09/30/24 03:54
09/30/24 03:54
Labs
Hgb 9.1 g/dL (12.0-16.0) L 09/30/24 03:54
Hct 28.9 % (37.0-47.0) L 09/30/24 03:54
Plt Count 255 10^3/uL (130-400) 09/30/24 03:54
APTT 60.8 Sec (23.4-35.0) H 09/30/24 03:54
Sodium 137 mmol/L (135-145) 09/30/24 03:54
Potassium 5.3 mmol/L (3.5-5.1) H 09/30/24 03:54
BUN 42 mg/dl (7-17) H 09/30/24 03:54
Creatinine 1.5 mg/dL (0.6-1.0) H 09/30/24 03:54
Glucose 102 mg/dl (70-99) H 09/30/24 03:54
Vital Signs and I&O:
Vital Signs
Temp Pulse Resp BP Pulse Ox
98.2 F 78 18 98/58 96
09/30/24 08:23 09/30/24 09:57 09/30/24 08:23 09/30/24 09:57 09/30/24 08:55
Vital Signs
Temp Pulse Resp BP Pulse Ox
98.2 F 78 18 98/58 96
09/30/24 08:23 09/30/24 09:57 09/30/24 08:23 09/30/24 09:57 09/30/24 08:55
Intake & Output
09/28/24 09/29/24 09/30/24 10/01/24
06:59 06:59 06:59 06:59
Intake Total 612 / 612 132 / 132 850 / 850
Output Total 1150 / 1150 1800 / 1800 3150 / 3150 100 / 100
Balance -538 / -538 -1668 / -1668 -2300 / -2300 -100 / -100
Physical Exam
Physical Exam
GEN: No distress, awake, alert, oriented x3. On 3 L
HEENT: supple, anicteric, mmm, EOMI
LUNGS: CTA B/L, no wheezes
CV: Reg, S1/S2, no murmur
ABD: soft, BS+, NT/ND
EXT: No cyanosis, clubbing, edema
NEURO: Gross non-focal
SKIN: Warm, pink, dry. No rash
[2024-09-30 10:42] LABS: Intact PTH 40.8 pg/ml (13.6-85.8)
--- NOTE | 2024-09-30 11:05 | W.PN.HOSP.TC ---
Today's Communication/Plan
-
IV lasix
trend cr
cont hep, asa, plavix
hypercalcemia work up
Assessment / Plan
Assessment / Plan
General: Well Developed, Well Nourished, No Apparent Distress and Obese
HEENT: NormoCephalic, Moist mucous membranes, Atraumatic and Oxygen
Respiratory: Clear
Cardiac: S1/S2 and Regular Rhythm; No Murmur or Rub
GI: Soft, Non Tender, Non Distended and Normal Bowel Sounds; No Organomegaly
Rectal: Deferred by Provider
Musculoskeletal: No Clubbing, No Cyanosis and No Edema
Skin: No Rash
Neuro: Awake, Alert, Oriented, AO x 3, No Motor Deficits and Nonfocal/grossly intact
Psych: Calm
#Unstable angina
#Coronary artery disease status post PCI
Currently chest pain-free
Continue with goal-directed medical therapy-carvedilol, Plavix,
Does not seems to be on statin as allergic with paralysis as stated. Significantly elevated cholesterol.
Nitroglycerin as needed for chest pain
Status post cardiac catheterization status post REBECA to LAD. Elevated left ventricular end-diastolic pressure
Patient with multivessel coronary artery disease and CT surgery has been consulted and recommended staged PCI
Continue with antiplatelet regimen with Plavix. Aspirin added patient seems to be tolerating it.
Plan for repeat cath on wednesday pending cr stabilization
Nephrology also consulted patient with CKD
#Acute on chronic HFrEF
#Ischemic cardiomyopathy
Per outpatient records EF of 20 to 25%
Diuresis per cardiology. Monitor creatinine closely with aggressive diuresis
Continue with beta-jas, Plavix, Aldactone
Diuresis per cardiology-lasix 80mg IV x 1
#Chronic kidney disease stage 3b
# Hyperkalemia-holding Aldactone for now
Monitor creatinine closely. Creatinine 1.6
Hold valsartan and Aldactone for now. Avoid hypotension
Avoid nephrotoxin
Obtain records from PCP for baseline creatinine. Per patient she was told by primary doctor about elevated creatinine.
Patient creatinine 1.3 in 05/20
Lasix should help with hyperkalemia
# Mild hypercalcemia
Blood work ordered per nephrology.
Status post 30 mg pamidronate
#Scleroderma
#Raynaud's phenomenon
Chronic immunosuppressive state
Continue with Plaquenil and prednisone 7.5 mg daily
#COPD
#Chronic hypoxic respiratory failure
#Asthma
#Chronic dyspnea
Continue with a home bronchodilator regimen
Continue with Singulair
#History of pulmonary embolism
#Chronic coagulopathy with Eliquis
Eliquis is currently being held as cardiac catheterization or surgery. Continue with heparin infusion.
Patient PE was 6 months ago
Patient is due to see her primary baller tender end of the month
#Pericarditis
# History of effusion
Currently patient on colchicine
Vital signs are currently stable
#Neuropathy
Continue patient gabapentin
#Hypothyroidism
Continue with Synthroid
#Mood disorder
Continue with Lexapro
DVT prophylaxis heparin drip
Full code. Patient is Jehovah witness and stated will refuse blood transfusion.
PT eval
Anticipated Discharge: > 48 hours
Subjective/Interval History
-
Date of Service: September 30, 2024
denies sob or cough
Objective Data
-
Labs:
Laboratory Results
09/30/24 09/30/24
03:54 11:35
WBC 8.2
Hgb 9.1 L
Hct 28.9 L
Plt Count 255
APTT 60.8 H Pending
Sodium 137
Potassium 5.3 H
Chloride 101
Carbon Dioxide 28
BUN 42 H
Creatinine 1.5 H
Glucose 102 H
Calcium 10.5 H
Vital Signs:
Vital Signs
Temp Pulse Resp BP Pulse Ox
98.2 F 76 18 98/58 96
09/30/24 08:23 09/30/24 10:00 09/30/24 08:23 09/30/24 09:57 09/30/24 08:55
I&O
09/29/24 09/30/24 10/01/24
06:59 06:59 06:59
Intake Total 132 / 132 850 / 850
Output Total 1800 / 1800 3150 / 3150 100 / 100
Balance -1668 / -1668 -2300 / -2300 -100 / -100
[2024-09-30 12:33] LABS: APTT 78.1 Sec (23.4-35.0)
[2024-09-30] MEDS: HEPARIN 25000 UNITS/250 ML IV (18:20)
[2024-09-30 20:00] LABS: APTT 70.7 Sec (23.4-35.0)
--- NOTE | 2024-09-30 21:21 | PTCARENOTE ---
Rec'd pt at change of shift. Pt AAO*3, VSS, and SR on TELE monitor. Pt denies any pain or discomfort. Pt with heparin infusing as ordered. Pt resting with call benz in reach and plan of care ongoing. See MAR and flowchart for full pt care and
assessment.
[2024-09-30] MEDS: FLEXERIL 10 MG PO (22:33)
[2024-09-30] MEDS: NEURONTIN 300 MG PO (22:33)
[2024-10-01] VITALS (11 sets, daily range): BP systolic 89–123; BP diastolic 44–103; PULSE 78; BMI 30.7
[2024-10-01 03:36] LABS: APTT 93.4 Sec (23.4-35.0)
[2024-10-01 03:45] LABS: Hematocrit 28.7 % (37.0-47.0); Hemoglobin 9.1 g/dL (12.0-16.0); Mean Corp Hgb Conc. 31.7 g/dL (33.0-37.0); Mean Corpuscular Hgb 26.4 pg (27.0-31.0); Mean Corpuscular Volume 83.2 fL (81.0-99.0); Mean Platelet Volume 10.1 fL (7.4-10.4); Platelet Count 229 10^3/uL (130-400); Red Blood Cell Count 3.45 10^6/uL (4.20-5.40); Red Cell Dist. Width 15.8 % (11.5-14.5); White Blood Cell Count 7.2 10^3/uL (4.8-10.8)
[2024-10-01 04:34] LABS: Blood Urea Nitrogen 52 mg/dl (7-17); Calcium 10.3 mg/dl (8.4-10.2); Carbon Dioxide 27 mmol/L (22-30); Chloride 100 mmol/L (98-107); Estimated Creatinine Clearance 30 ml/min; Glucose 95 mg/dl (70-99); Sodium 134 mmol/L (135-145); eGFR 29.38
[2024-10-01] MEDS: SYNTHROID 75 MCG PO (06:25)
[2024-10-01] MEDS: SPIRIVA RESPIMAT 2.5 MCG 2 PUFF INH (08:16)
[2024-10-01] MEDS: SYMBICORT 160/4.5 MCG INHALER 2 PUFF INH ×2 (08:17→19:58)
[2024-10-01] MEDS: CARAFATE SUSPENSION 1 GM PO ×3 (08:34→17:49)
[2024-10-01] MEDS: DELTASONE 7.5 MG PO (08:35)
[2024-10-01] MEDS: ZYRTEC 10 MG PO (08:35)
[2024-10-01] MEDS: TYLENOL 650 MG PO (08:35)
[2024-10-01] MEDS: MUCINEX 600 MG PO ×2 (08:35→21:43)
[2024-10-01] MEDS: PROTONIX 40 MG PO (08:35)
[2024-10-01] MEDS: LOW STRENGTH ASPIRIN 81 MG PO (08:36)
[2024-10-01] MEDS: COLCHICINE 0.6 MG PO (08:36)
[2024-10-01] MEDS: PLAQUENIL 400 MG PO (08:36)
[2024-10-01] MEDS: PLAVIX 75 MG PO (08:36)
[2024-10-01] MEDS: SINGULAIR 10 MG PO (08:36)
[2024-10-01] MEDS: COREG 3.125 MG PO ×2 (08:36→21:42)
[2024-10-01] MEDS: LEXAPRO 20 MG PO (08:36)
[2024-10-01] MEDS: LEXAPRO 5 MG PO (08:36)
--- NOTE | 2024-10-01 08:41 | PTCARENOTE ---
Addendum entered by Polina Kasper RN 10/01/24 11:35:
24 hour urine sent to lab.
Addendum entered by Polina Kasper RN 10/01/24 09:15:
24 hour urine being maintained, will be done at 0930.
Original Note:
received patient this am, up in chair, patient c/o neck pain, didnot sleep well last night, Tylenol po given as ordered. IV heparin @ 1300units/hr site looks 'puffy', tender to touch, called IV team to restart. patient is a difficult stick. monitor
shows NSR, VSS.
--- NOTE | 2024-10-01 09:42 | W.PN.NEPH.PH ---
Today's Communication / Plan
-
IVF
Assessment/Plan
-
74-year-old female with extensive past medical history including CAD with prior stents, CKD, COPD, breast cancer s/p mastectomy with chemo/radiation, was recently admitted to [facility] for pericarditis and pericardial effusion which was not
drained (on colchicine). Patient was referred for further cardiac workup at [facility] due to SOB/SALINAS and presents 09/27/23 for diagnostic cardiac catheterization. Severe LAD and RCA disease in setting of low EF 25%. she uses 2 L of oxygen at baseline due
to her history of severe COPD the patient has no history of smoke
Renal consult for PATRIA prevention in the setting of elevated creatinine. Uncertain to the patient's baseline
Impression.
KELSEY with uncertain baseline
Coronary artery disease requiring cardiac catheterization stenting.
Severe COPD on 2 L oxygen.
Pericarditis/pericardial effusion, chronic
Scleroderma unknown if limited or systemic
Rheumatoid arthritis
Hypercalcemia
Heart failure reduced ejection fraction 25%
Hypotension
History of pulmonary embolism
History of breast cancer right, in remission
Plan.
no more lasix
IVF 500ml today
Eventual PCI RCA needed, but only if Cr remains stable ~1.5
Hypercalcemia workup pending
Pamidronate 30 mg 09/29
Eventual SGLT2
Unlikely she will tolerate RAASi given low blood pressure
High risk situation
-
-
Date of Service: October 01, 2024
CC / HPI / ROS
-
Chief Complaint:
KELSEY
History of Present Illness:
KELSEY/Cr up to 1.8
s/p Aredia 09/29, calcium down to 10.3
K better 5.0
BP still low
responded to lasix for high filling pressures/CHF, UOP > 2L
on 3L O2 chronically (at home)
s/p LHC 09/29 for LAD PCI, LVEDP 32
Na down 134
Review of Systems:
no CP/SOB
Labs
-
Labs:
WBC 7.2 10^3/uL (4.8-10.8) 10/01/24 03:07
RBC 3.45 10^6/uL (4.20-5.40) L 10/01/24 03:07
Hgb 9.1 g/dL (12.0-16.0) L 10/01/24 03:07
Hct 28.7 % (37.0-47.0) L 10/01/24 03:07
Plt Count 229 10^3/uL (130-400) 10/01/24 03:07
Sodium 134 mmol/L (135-145) L 10/01/24 03:07
Potassium 5.0 mmol/L (3.5-5.1) 10/01/24 03:07
Chloride 100 mmol/L (98-107) 10/01/24 03:07
Carbon Dioxide 27 mmol/L (22-30) 10/01/24 03:07
BUN 52 mg/dl (7-17) H 10/01/24 03:07
Creatinine 1.8 mg/dL (0.6-1.0) H 10/01/24 03:07
eGFR 29.38 10/01/24 03:07
Glucose 95 mg/dl (70-99) 10/01/24 03:07
Calcium 10.3 mg/dl (8.4-10.2) H 10/01/24 03:07
Phosphorus 3.4 mg/dl (2.5-4.5) 09/29/24 13:50
Albumin 4.5 g/dl (3.5-5.0) 09/26/24 07:52
Physical Exam
-
Vital Signs:
Vital Signs
Temp Pulse Resp BP Pulse Ox
98.4 F 81 16 91/50 98
10/01/24 07:35 10/01/24 09:00 10/01/24 08:23 10/01/24 08:36 10/01/24 08:30
Cardiovascular:: Regular rate and rhythm
Respiratory:: Bilateral: CTA
Lung Excursion:: Normal
Abdomen:: Nontender and Soft
Bowel Sounds:: Normal
Extremity Edema:: None: Bilateral:
[2024-10-01] MEDS: HEPARIN 25000 UNITS/250 ML IV (09:43)
[2024-10-01] MEDS: NSS 500 IV (10:27)
--- NOTE | 2024-10-01 10:28 | PTCARENOTE ---
started IV NSS @ 80cc/hr via left hand as ordered.
--- NOTE | 2024-10-01 10:38 | W.PN.HOSP.TC ---
Today's Communication/Plan
-
Plan for IV fluids today
Trend creatinine
Tentative cath tomorrow only if creatinine improves
Continue with heparin for PE protocol
Continue with goal-directed medical therapy
Assessment / Plan
Assessment / Plan
General: Well Developed, Well Nourished, No Apparent Distress and Obese
HEENT: NormoCephalic, Moist mucous membranes, Atraumatic and Oxygen
Respiratory: Clear
Cardiac: S1/S2 and Regular Rhythm; No Murmur or Rub
GI: Soft, Non Tender, Non Distended and Normal Bowel Sounds; No Organomegaly
Rectal: Deferred by Provider
Musculoskeletal: No Clubbing, No Cyanosis and No Edema
Skin: No Rash
Neuro: Awake, Alert, Oriented, AO x 3, No Motor Deficits and Nonfocal/grossly intact
Psych: Calm
#Unstable angina
#Coronary artery disease status post PCI
Currently chest pain-free
Continue with goal-directed medical therapy-carvedilol, Plavix,
Does not seems to be on statin as allergic with paralysis as stated. Significantly elevated cholesterol.
Nitroglycerin as needed for chest pain
Status post cardiac catheterization status post REBECA to LAD. Elevated left ventricular end-diastolic pressure
Patient with multivessel coronary artery disease and CT surgery has been consulted and recommended staged PCI
Continue with antiplatelet regimen with Plavix. Aspirin added patient seems to be tolerating it.
Plan for repeat cath on wednesday pending cr stabilization
Nephrology also consulted patient with CKD
#Acute on chronic HFrEF
#Ischemic cardiomyopathy
Per outpatient records EF of 20 to 25%
Diuresis per cardiology. Monitor creatinine closely with aggressive diuresis
Continue with beta-jas, Plavix, Aldactone
Diuresis per cardiology-lasix 80mg IV x 1
#Chronic kidney disease stage 3b
# Hyperkalemia-holding Aldactone for now
Monitor creatinine closely. Creatinine bumped to 1.8 today.
Hold valsartan and Aldactone for now. Avoid hypotension
Avoid nephrotoxin
Obtain records from PCP for baseline creatinine. Per patient she was told by primary doctor about elevated creatinine.
Patient creatinine 1.3 in 05/20
Plan to hold further diuretics. Plan for IV fluids
Nephrology following
# Mild hypercalcemia
Blood work ordered per nephrology.
Status post 30 mg pamidronate
#Scleroderma
#Raynaud's phenomenon
Chronic immunosuppressive state
Continue with Plaquenil and prednisone 7.5 mg daily
#COPD
#Chronic hypoxic respiratory failure
#Asthma
#Chronic dyspnea
Continue with a home bronchodilator regimen
Continue with Singulair
#History of pulmonary embolism
#Chronic coagulopathy with Eliquis
Eliquis is currently being held as cardiac catheterization or surgery. Continue with heparin infusion.
Patient PE was 6 months ago
Patient is due to see her primary treatment supervisor end of the month
#Pericarditis
# History of effusion
Currently patient on colchicine
Vital signs are currently stable
#Neuropathy
Continue patient gabapentin
#Hypothyroidism
Continue with Synthroid
#Mood disorder
Continue with Lexapro
DVT prophylaxis heparin drip
Full code. Patient is Jehovah witness and stated will refuse blood transfusion.
PT eval
Anticipated Discharge: > 48 hours
Subjective/Interval History
-
Date of Service: October 01, 2024
denies any chest pain
Objective Data
-
Labs:
Laboratory Results
10/01/24 10/01/24
03:07 09:29
WBC 7.2
Hgb 9.1 L
Hct 28.7 L
Plt Count 229
APTT 93.4 H 73.0 H
Sodium 134 L
Potassium 5.0
Chloride 100
Carbon Dioxide 27
BUN 52 H
Creatinine 1.8 H
Glucose 95
Calcium 10.3 H
Vital Signs:
Vital Signs
Temp Pulse Resp BP Pulse Ox
98.4 F 81 16 91/50 98
10/01/24 07:35 10/01/24 09:00 10/01/24 08:23 10/01/24 08:36 10/01/24 08:30
I&O
09/30/24 10/01/24 10/02/24
06:59 06:59 06:59
Intake Total 850 / 850 240 / 240
Output Total 3150 / 3150 2400 / 2400 400 / 400
Balance -2300 / -2300 -2160 / -2160 -400 / -400
--- NOTE | 2024-10-01 11:22 | W.PN.CARDCBS ---
Today's Communication / Plan
-
She is overall doing well. No new chest pains.
Creatinine up to 1.8. Continue to follow. Gentle hydration today per nephrology. Will need to watch for signs of CHF
Continue aspirin, Plavix, and IV heparin.
Will decide in a.m. tomorrow regarding possible RCA PCI. Will await labs.
Remains on colchicine, Plaquenil, and prednisone for scleroderma.
Continue colchicine for small to moderate pericardial effusion. Will need repeat imaging as outpatient
Impression / Plan
-
Primary Production Laborer: Dr. Rodger Bacon
Assessment:
Multivessel CAD
Status post LAD PCI 2004 at [facility]
s/p 2 overlapping 2.5 x 30 mm and 2.25 x 30 mm [employer] [place] drug-eluting stents 09/29/2024
ICM, EF 20 to 25%
Acute on chronic HFrEF with elevated filling pressures on catheterization 09/29/2024
CKD3B
HTN
HLD
COPD on chronic 3L supp O2
History of PE
Chronic OAC with eliquis
History of statin intolerance (paralysis)
Raynaud's syndrome
Scleroderma on chronic steroids
Neuropathy
Hypothyroidism
History of breast cancer s/p mastectomy, chemo, radiation
Obesity
LOUISE on CPAP
Chronic anemia
ECHO 09/26/24: EF 20-25%, global hypokinesis, mod cLVH, stage 1 diastolic dysfunction, mild , small to mod pericardial effusion to LV, ascending aorta dilatation measuring 4.1cm
Cardiac cath 09/2024: LM: 20% stenosis. LAD: Proximal to mid heavily calcified with 50% followed by 95% stenosis at second diagonal s/p 2 overlapping 2.5 x 30 mm and 2.25 x 30 mm Medtronic [place] drug-eluting stents (09/29/2024). First diagonal ostial
70% stenosis. Left circumflex: Ostial 70% stenosis. RCA: Mid 80% stenosis.
Hemodynamics:RA (m) : 17, RV (s/d,m) : 52/11, 14, PA (s/d, m) : 52/26, 37, PCWP (m) : 20, PA saturation: 61.5% on room air, AO saturation: 88.9% on room air, RA saturation: 57.2% on room air, Cardiac Output : 5.34 L/min by Zehra calculation, Cardiac
Index : 2.77 L/min/m-2 by Zehra calculation, Systemic vascular resistance: 943 dsc^(-5), Pulmonary vascular resistance: 3.56 saucedo unit
Plan:
- Patient had hospitalization at [place] in mid August 2024 with acute decompensated heart failure and found to have EF of 20 to 25% by echo. Then underwent subsequent pharmacologic nuclear stress test, also abnormal with post-rest EF of 17%. She
underwent left and right heart cath on 09/26/2024 and was found to have multivessel coronary disease of LAD, OM1, RCA.
- she was felt to be high risk for CABG given comorbidities. Patient has baseline CKD 3B.
- s/p proximal to mid LAD overlapping 2.5 x 30 mm and 2.25 x 30 mm Medtronic [place] drug-eluting stents 09/29/2024.
- Plan for staged intervention of RCA. Possibly next week pending renal function. Creatinine up to 1.8. Will reassess kidney function in a.m. to decide about timing of RCA intervention.
- She remains chest pain-free post PCI. EKG stable showing sinus rhythm with left bundle branch block.
- continue IV heparin, Plavix and baby ASA. of note she has history of intolerance to aspirin with symptoms of severe abd pain, diarrhea, and cold sweats. discussed with IC. However patient is now tolerating 81 mg of aspirin without difficulty.
- Will need eventual resumption of Eliquis given history of PE once no additional invasive interventions to be performed
- Ongoing diuresis secondary to elevated filling pressures during recent cardiac catheterizations. Nephrology on board assisting in dosing of diuresis to help prevent contrast-induced nephropathy given CKD stage IIIb and assist in diuresis given
concern of acute on chronic heart failure. Current Cr 1.8. Getting gentle hydration today per nephrology. Will need to watch for congestive heart failure.
- She is back to baseline 3 L nasal cannula.
- CHF education
- In sinus rhythm on review of telemetry
- ECHO 09/26 remains with EF 20-25%. will need repeat echo as OP to reeval EF post revascularization
- Continue GDMT of ischemic cardiomyopathy with Coreg. Outpatient valsartan and Aldactone presently on hold given CKD and hypotension. Could consider addition of SGLT2 inhibitor if cost affordable and renal function remains stable
- On Eliquis as an outpatient due to history of PE. Will need to determine anticoagulation/antiplatelet regimen once treatment of coronary disease determined
- Continue colchicine given chronic pericarditis
Progress Note - Production Laborer
Subjective
Date of Service: October 01, 2024
Denies chest pains or shortness of breath. No palpitation
Objective
Labs:
10/01/24 03:07
10/01/24 03:07
Labs
Hgb 9.1 g/dL (12.0-16.0) L 10/01/24 03:07
Hct 28.7 % (37.0-47.0) L 10/01/24 03:07
Plt Count 229 10^3/uL (130-400) 10/01/24 03:07
APTT 73.0 Sec (23.4-35.0) H 10/01/24 09:29
Sodium 134 mmol/L (135-145) L 10/01/24 03:07
Potassium 5.0 mmol/L (3.5-5.1) 10/01/24 03:07
BUN 52 mg/dl (7-17) H 10/01/24 03:07
Creatinine 1.8 mg/dL (0.6-1.0) H 10/01/24 03:07
Glucose 95 mg/dl (70-99) 10/01/24 03:07
Vital Signs and I&O:
Vital Signs
Temp Pulse Resp BP Pulse Ox
98.4 F 81 16 91/50 98
10/01/24 07:35 10/01/24 09:00 10/01/24 08:23 10/01/24 08:36 10/01/24 08:30
Vital Signs
Temp Pulse Resp BP Pulse Ox
98.4 F 81 16 91/50 98
10/01/24 07:35 10/01/24 09:00 10/01/24 08:23 10/01/24 08:36 10/01/24 08:30
Intake & Output
09/29/24 09/30/24 10/01/24 10/02/24
06:59 06:59 06:59 06:59
Intake Total 132 / 132 850 / 850 240 / 240
Output Total 1800 / 1800 3150 / 3150 2400 / 2400 400 / 400
Balance -1668 / -1668 -2300 / -2300 -2160 / -2160 -400 / -400
Physical Exam
Physical Exam
GEN: No distress, awake, Ox3
HEENT: supple, anicteric, mmm
LUNGS: CTA, no wheezes/rales
CV: Reg, S1/S2, 1/6 syst LSB, no gallop
ABD: soft, BS+, NT/ND
EXT: No edema
NEURO: Gross non-focal
SKIN: No rash
[2024-10-01] MEDS: FLEXERIL 10 MG PO (21:41)
[2024-10-01] MEDS: NEURONTIN 300 MG PO (21:41)
[2024-10-01] MEDS: MELATONIN 3 MG PO (21:41)
[2024-10-01] MEDS: ATIVAN 0.5 MG PO (21:44)
--- NOTE | 2024-10-01 22:39 | PTCARENOTE ---
~4034-4267: Handoff report received from daysignacio RN. Pt AOx4, foregetful at times, NSR 1st degree AVB BBB 70s-80s on tele, 3L NC satting >90%. Pt denies pain at this time. R femoral dressing CDI with some ecchomosis present. Heparin gtt infusing
per protocol, therapeutic at this time. All needs met at this time, call benz within reach.
~2393-2520: Patient ambulated around unit. VSS at this time. All needs met. handoff report given to dee RN.
[2024-10-02] VITALS (24 sets, daily range): BP systolic 80–115; BP diastolic 44–77; PULSE 75–83; BMI 30.9
--- NOTE | 2024-10-02 00:12 | PTCARENOTE ---
Continued pt care at 2300. Pt AAO*3, VSS, and SR on TELE monitor with BBB and 1st degree block. PT denies any pain or discomfort. Diet made NPO at midnight. Heparin infusing as ordered. PT resting with call benz in reach and plan of care
ongoing. See MAR and flowchart for full pt care and assessment.
[2024-10-02] MEDS: HEPARIN 25000 UNITS/250 ML IV (04:45)
[2024-10-02] MEDS: SYNTHROID 75 MCG PO (04:50)
[2024-10-02 05:04] LABS: APTT 121.6 Sec (23.4-35.0)
[2024-10-02 05:36] LABS: Blood Urea Nitrogen 44 mg/dl (7-17); Carbon Dioxide 27 mmol/L (22-30); Chloride 106 mmol/L (98-107); Estimated Creatinine Clearance 36 ml/min; Glucose 89 mg/dl (70-99); Potassium 4.6 mmol/L (3.5-5.1); Sodium 137 mmol/L (135-145); eGFR 36.57
[2024-10-02] MEDS: SPIRIVA RESPIMAT 2.5 MCG 2 PUFF INH (08:06)
[2024-10-02] MEDS: SYMBICORT 160/4.5 MCG INHALER 2 PUFF INH ×2 (08:06→19:51)
--- NOTE | 2024-10-02 08:56 | PTCARENOTE ---
received patient this am sleeping but easily awake. monitor shows NSR with BBC, BP 88/52, asymptomatic. IV heparin @ 1100units/hr via left hand. patient remains on her 3LNC, o2 sat 95%.
--- NOTE | 2024-10-02 10:01 | W.PN.HOSP.TC ---
Today's Communication/Plan
-
Continue with IV heparin. Follow creatinine and depending for repeat left heart cath.
Assessment / Plan
Assessment / Plan
#Unstable angina
#Coronary artery disease status post PCI and stent to LAD
Remains chest pain-free
Continue with goal-directed medical therapy-carvedilol, Plavix,
Does not seems to be on statin as allergic with paralysis as stated. Significantly elevated cholesterol. Explore PCSK9 Inhibitors as OP
Nitroglycerin as needed for chest pain
Status post cardiac catheterization status post REBECA to LAD. Elevated left ventricular end-diastolic pressure
Patient with multivessel coronary artery disease and CT surgery has been consulted and recommended staged PCI
Continue with antiplatelet regimen with Plavix. Aspirin added patient seems to be tolerating it.
Plan for repeat cath for PCI of RCA lesion today pending cr stabilization
Nephrology also consulted patient with CKD
#Acute on chronic HFrEF
#Ischemic cardiomyopathy
Per outpatient records EF of 20 to 25%
Diuresis per renal- currently on hold due to KELSEY . Monitor creatinine closely
Continue with beta-jas, Plavix, Aldactone
#Abnormal Cr -possible KELSEY
# Hyperkalemia-holding Aldactone for now
Monitor creatinine closely. Creatinine 1.5 today.
Hold valsartan and Aldactone for now. Avoid hypotension
Avoid nephrotoxin
Obtain records from PCP for baseline creatinine. Per patient she was told by primary doctor about elevated creatinine.
Patient creatinine 1.3 in 05/20
Plan to hold further diuretics. Plan for IV fluids per renal
Nephrology following
# Mild hypercalcemia
Blood work ordered per nephrology.
Status post 30 mg pamidronate
#Scleroderma
#Raynaud's phenomenon
Chronic immunosuppressive state
Continue with Plaquenil and prednisone 7.5 mg daily
#COPD
#Chronic hypoxic respiratory failure
#Asthma
#Chronic dyspnea
Continue with a home bronchodilator regimen
Continue with Singulair
#History of pulmonary embolism
#Chronic coagulopathy with Eliquis
Eliquis is currently being held as cardiac catheterization or surgery. Continue with heparin infusion.
Patient PE was 6 months ago
Patient is due to see her primary electrical and instrument engineer end of the month
#Pericarditis
# History of effusion
Currently patient on colchicine
Vital signs are currently stable
#Neuropathy
Continue patient gabapentin
#Hypothyroidism
Continue with Synthroid
#Mood disorder
Continue with Lexapro
DVT prophylaxis heparin drip
Full code. Patient is Jehovah witness and stated will refuse blood transfusion.
PT eval
Anticipated Discharge: > 48 hours
Subjective/Interval History
-
Date of Service: October 02, 2024
chest pain chest pain.
Lying flat in the bed without complaints of shortness of breath. Stable on 3 L of oxygen which is her home FiO2. No cough. No nausea vomiting.
Yesterday she had dizziness. No dizziness currently with ambulation.
Objective Data
-
Labs:
Laboratory Results
10/02/24 10/02/24
04:38 11:10
APTT 121.6 H Pending
Sodium 137
Potassium 4.6
Chloride 106
Carbon Dioxide 27
BUN 44 H
Creatinine 1.5 H
Glucose 89
Calcium 10.0
Vital Signs:
Vital Signs
Temp Pulse Resp BP Pulse Ox
98.1 F 80 15 96/44 95
10/02/24 07:44 10/02/24 08:09 10/02/24 08:09 10/01/24 22:34 10/02/24 08:30
I&O
10/01/24 10/02/24 10/03/24
06:59 06:59 06:59
Intake Total 240 / 240 656 / 656
Output Total 2400 / 2400 2600 / 2600
Balance -2160 / -216 -1943 /
Physical Exam
-
HEENT: Moist Mucous Membranes
Respiratory: Clear to Auscultation
Cardiac: Regular Rhythm and S1/S2
GI: Soft
Musculoskeletal: No Edema
Neuro: AO x 3
Data Reviewed
-
Labs: Labs Reviewed by me
[2024-10-02] MEDS: CARAFATE SUSPENSION 1 GM PO ×2 (10:10→19:37)
[2024-10-02] MEDS: DELTASONE 7.5 MG PO (10:10)
[2024-10-02] MEDS: PLAQUENIL 400 MG PO (10:11)
[2024-10-02] MEDS: MUCINEX 600 MG PO ×2 (10:11→19:37)
[2024-10-02] MEDS: LEXAPRO 20 MG PO (10:11)
[2024-10-02] MEDS: SINGULAIR 10 MG PO (10:11)
[2024-10-02] MEDS: PROTONIX 40 MG PO (10:11)
[2024-10-02] MEDS: PLAVIX 75 MG PO (10:11)
[2024-10-02] MEDS: ZYRTEC 10 MG PO (10:11)
[2024-10-02] MEDS: LEXAPRO 5 MG PO (10:11)
[2024-10-02] MEDS: LOW STRENGTH ASPIRIN 81 MG PO (10:14)
[2024-10-02] MEDS: COLCHICINE 0.6 MG PO (10:14)
--- NOTE | 2024-10-02 11:09 | CM ---
Reviewed chart. Met with Mrs. Gonzales to review discharge plans. She states prior to admission she resides alone in a second floor apartment. She states she has a stair glide to get to the second floor. She states she is on one level once inside the
apartment. She states prior to admission she uses a walker for ambulation. She states she has a walker, rollator, single point cane, and home 02 . She states she has 3 liters of 02 continuously. She states she is current with [facility].
Telephone call to [facility] who confirms ability to accept back. She states she also gets [employer]LECTROPLATING WORK[employer] services for 49 hour a week. They assist with all real estate developer and cooking. She states she has a prescription plan and uses [facility].
Meedical work-up in progress. The discharge plan is to return home with [facility] and ELECTROPLATING WORKER services when medically stable.
[2024-10-02] MEDS: COREG 3.125 MG PO ×2 (11:29→19:37)
[2024-10-02] MEDS: CARAFATE SUSPENSION PO (13:05)
--- NOTE | 2024-10-02 13:39 | W.PN.NEPH.PH ---
Today's Communication / Plan
-
Stable for cardiac cath
Assessment/Plan
-
74-year-old female with extensive past medical history including CAD with prior stents, CKD, COPD, breast cancer s/p mastectomy with chemo/radiation, was recently admitted to [facility] for pericarditis and pericardial effusion which was not
drained (on colchicine). Patient was referred for further cardiac workup at [facility] due to SOB/SALINAS and presents 09/27/23 for diagnostic cardiac catheterization. Severe LAD and RCA disease in setting of low EF 25%. she uses 2 L of oxygen at baseline due
to her history of severe COPD the patient has no history of smoke
Renal consult for PATRIA prevention in the setting of elevated creatinine. Uncertain to the patient's baseline
Impression.
KELSEY with uncertain baseline
Coronary artery disease requiring cardiac catheterization stenting.
Severe COPD on 2 L oxygen.
Pericarditis/pericardial effusion, chronic
Scleroderma unknown if limited or systemic
Rheumatoid arthritis
Hypercalcemia
Heart failure reduced ejection fraction 25%
Hypotension
History of pulmonary embolism
History of breast cancer right, in remission
Plan.
no more lasix
Creatinine down to 1.5 after 500 cc of fluid given yesterday
Eventual PCI RCA needed, today?
Hypercalcemia workup pending, PTH 41 (inappropriately normal
Pamidronate 30 mg 09/29: calcium 10
Eventual SGLT2
Unlikely she will tolerate RAASi given low blood pressure
-
-
Date of Service: October 02, 2024
CC / HPI / ROS
-
Chief Complaint:
KELSEY
History of Present Illness:
KELSEY/Cr down to 1.5
s/p Aredia 09/29, calcium down to 10.
K better 4.6
BP still low
responded to lasix for high filling pressures/CHF, UOP > 2L
on 3L O2 chronically (at home)
s/p LHC 09/29 for LAD PCI, LVEDP 32
Na at137
Review of Systems:
no CP/SOB
Labs
-
Labs:
WBC 7.2 10^3/uL (4.8-10.8) 10/01/24 03:07
RBC 3.45 10^6/uL (4.20-5.40) L 10/01/24 03:07
Hgb 9.1 g/dL (12.0-16.0) L 10/01/24 03:07
Hct 28.7 % (37.0-47.0) L 10/01/24 03:07
Plt Count 229 10^3/uL (130-400) 10/01/24 03:07
Sodium 137 mmol/L (135-145) 10/02/24 04:38
Potassium 4.6 mmol/L (3.5-5.1) 10/02/24 04:38
Chloride 106 mmol/L (98-107) 10/02/24 04:38
Carbon Dioxide 27 mmol/L (22-30) 10/02/24 04:38
BUN 44 mg/dl (7-17) H 10/02/24 04:38
Creatinine 1.5 mg/dL (0.6-1.0) H 10/02/24 04:38
eGFR 36.57 10/02/24 04:38
Glucose 89 mg/dl (70-99) 10/02/24 04:38
Calcium 10.0 mg/dl (8.4-10.2) 10/02/24 04:38
Phosphorus 3.4 mg/dl (2.5-4.5) 09/29/24 13:50
Albumin 4.5 g/dl (3.5-5.0) 09/26/24 07:52
Physical Exam
-
Vital Signs:
Vital Signs
Temp Pulse Resp BP Pulse Ox
98.5 F 88 15 101/48 100
10/02/24 11:39 10/02/24 11:39 10/02/24 08:09 10/02/24 11:29 10/02/24 11:39
Cardiovascular:: Regular rate and rhythm
Respiratory:: Bilateral: CTA
Lung Excursion:: Normal
Abdomen:: Nontender and Soft
Bowel Sounds:: Normal
Extremity Edema:: None: Bilateral:
[2024-10-02 14:24] LABS: Vitamin D 1,25 Dihydroxy 18.6 pg/mL (19.9-79.3)
--- NOTE | 2024-10-02 17:24 | ITS.CL.CATH ---
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
Cardiac Catheterization
Procedure Report:
CORONARY INTERVENTION OF RCA
Date of Procedure: October 02, 2024
Referring: Miguel Goodman NP and Rodger Bacon MD
PROCEDURES:
1. Left heart catheterization, selective left coronary angiogram.
2. Moderate sedation.
3. Successful percutaneous coronary artery intervention of heavily calcified and diffusely disease proximal to mid RCA with up to 80% stenosis with 3 overlapping 4.0 x 12 mm, 4.0 x 38 mm and 4.0 x 8 mm Medtronic Hamburg drug-eluting stents,
postdilated using IVUS guidance with a 4.0 x 20 mm NC balloon at 18 orly distally and 22 orly proximally with an excellent angiographic and IVUS based result. Post PCI the stents appear well-expanded and well opposed without evidence of distal or
proximal stent edge dissections.
4. Intravascular ultrasound (IVUS)
INDICATION: Mary is a 74 F with HTN, HLD, multiple drug allergies, Raynaud's syndrome, scleroderma on chronic steroids, CKD St 3B, CAD with prior LAD stents in 2004 at [facility], recent hospitalization at [facility] in mid August with ADHF found to
have LVEF 20-25% with pharm nuclear scan abnormal with post stress LVEF 17% who was referred for left and right heart cath. On September 26, 2024. Heart catheterization at that time showed significant LAD and RCA disease with heavily calcified vessels.
We had stopped to optimize her filling pressures in the setting of CKD and obtain a CT surgery consult for a heart team approach. She was deemed high risk for surgery and test being referred back for PCI in a staged fashion. She underwent
successful PCI of the LAD on Sunday, September 29, 2024. Thankfully her renal function has remained stable through the weekend and therefore she is coming back to the lab today for planned PCI of RCA.
ACCESS: Right common femoral artery, 6 Fr. sheath, under US guidance using micropuncture kit.
HEMODYNAMICS : (mmHg)
AO (s/d) : 110/69
LVEDP : 20
No significant gradient across the aortic valve to suggest aortic stenosis.
CORONARY ANATOMY:
Dominance: Right
Left Main Trunk (LMT): Large caliber vessel that gives rise to the LAD and LCx branches. The terminal left main has 20% stenosis.
Left Anterior Descending Artery (LAD): Large caliber vessel that gives off two major diagonal branches as it courses along the anterior inter-ventricular groove before reaching the apex. Ostial to proximal LAD is heavily calcified with diffuse 40
to 50% stenosis. Recently placed proximal to mid LAD stents are widely patent. The first major diagonal which is a small caiber vessel has ostial 70% stenosis. The apical LAD is diffusely diseased.
Left Circumflex Artery (LCx): Large caliber vessel that gives off a first large early bifurcating major obtuse marginal (OM) branches as it courses along the atrio-ventricular (AV) groove. The inferior limb of the OM1 has an ostial 70% stenosis.
The superior limb is the bigger of the two vessels.
Right Coronary Artery (RCA): Large caliber dominant vessel that gives rise to large posterior descending artery (RPDA) that reaches the apex and postero-lateral ventricular (RPLV) branches distally. The mid-RCA has a mid-vessel long 80% stenosis,
which was intervened upon as noted below.
CORONARY INTERVENTION: The right coronary artery was selectively engaged using a 6 Vincentian JR4 guide catheter. Additional heparin was given to maintain a therapeutic ACT throughout the case. A 190 cm 0.014 run-through wire was successfully advanced
into the distal vessel navigated in the proximal and mid LAD calcified stenosis. We initially attempted ballooning with a 4.0 x 20 mm semi-compliant balloon however we could not advance the balloon into the midportion. We then brought in a 6
Vincentian guide liner for support and predilated using a 3.0 x 15 mm semi-compliant balloon with good expansion. We further predilated with a 4.0 x 20 mm semicompliant balloon using GuideLiner support with full expansion. Then through the guide liner
we delivered a 4.0 x 38 mm Medtronic Hamburg drug-eluting stent which was deployed at nominal pressure with full expansion. Given concern for significant obstructive disease at the distal edge, we overlapped with a 4.0 x 8 mm Medtronic Hamburg
drug-eluting stent. Similarly given significant plaque noted on IVUS in the proximal portion, we overlapped proximally with a 4.0 x 12 mm Medtronic Hamburg drug-eluting stent. All of the stents were postdilated using a 4.0 x 20 mm NC balloon at 18
orly distally and 22 orly proximally with an excellent angiographic result. We performed intravascular ultrasound post PCI using a [employer] IVUS Quechan eye catheter which showed a well-expanded and well apposed stent without evidence of distal or
proximal stent edge dissections. No acute complications. Patient tolerated the procedure well.
SEDATION: 60 minutes of procedural sedation was utilized. IV Midazolam and IV Fentanyl were administered. An independent medical device assembler was present to assist with and help manage the patient's level of consciousness and physiologic status.
RADIATION SUMMARY: Fluoro Time (min): 17.0 dose (mGy): 425.03 , DAP (Gy.cm2) : 31.2
Closure Device: There were no immediate intra-procedural complications. 6Fr RCFA closure post right PATIENT OBSERVER Limited angiography with successful 6 Vincentian Angio-Seal and hemostasis.
CONCLUSIONS
1. Successful percutaneous coronary artery intervention of heavily calcified and diffusely disease proximal to mid RCA with up to 80% stenosis with 3 overlapping 4.0 x 12 mm, 4.0 x 38 mm and 4.0 x 8 mm Medtronic Burak drug-eluting stents, postdilated
using IVUS guidance with a 4.0 x 20 mm NC balloon at 18 orly distally and 22 orly proximally with an excellent angiographic and IVUS based result. Post PCI the stents appear well-expanded and well opposed without evidence of distal or proximal stent
edge dissections.
2. Recently placed proximal and mid LAD stents are widely patent with residual calcified 40 to 50% ostial LAD plaque.
3. Elevated LVEDP at 20mmHG.
RECOMMENDATIONS
1. Bedrest per protocol post groin access.
2. Continue aggressive medical therapy and risk factor modification for secondary CAD prevention.
3. Hydrate with normal saline to mitigate the risk of contrast-induced acute kidney injury. She will also need aggressive diuresis given significantly elevated LVEDP still at 32 mmHg to optimize her filling pressures.
4. Given significant aspirin sensitivity with abdominal pain and explosive diarrhea plan post PCI is to continue Plavix 75 mg daily indefinitely and resume Eliquis likely tomorrow, October 03, 2024 as long as there are no groin issues which she is
on for her chronic PE. Continue optimization of goal-directed medical therapy for severe ischemic cardiomyopathy.
5. As an outpatient we will need to look into a non-statin lipid-lowering medication given significantly elevated LDL with a statin and Zetia allergy.
6. Outpatient follow-up with Dr. Bacon at [facility]. Will need reassessment of LVEF post complete revascularization to assess need for ICD for primary prevention in the setting of severely reduced LV systolic function.
7. Referral for outpatient cardiac rehab.
Copy to: Miguel Goodman NP and Rodger Bacon MD
Qi Wick MD.
[2024-10-02 17:53] LABS: ACT-LR - POC 269 Seconds (116-155)
[2024-10-02 18:13] LABS: ACT-LR - POC 311 Seconds (116-155)
[2024-10-02] MEDS: NSS 1000 IV (19:35)
[2024-10-02] MEDS: TYLENOL 650 MG PO (19:38)
[2024-10-02 21:05] LABS: Angiotensin-1-converting Enzym 10 U/L (16-85)
[2024-10-02] MEDS: NEURONTIN 300 MG PO (21:05)
[2024-10-02] MEDS: FLEXERIL 10 MG PO (21:05)
[2024-10-02] MEDS: ATIVAN 0.5 MG PO (22:17)
[2024-10-02] MEDS: MELATONIN 3 MG PO (22:17)
[2024-10-02 23:06] LABS: ACT-LR - POC 337 Seconds (116-155)
--- NOTE | 2024-10-02 23:55 | PTCARENOTE ---
Patient received at change of shift resting in the bed. Right groin cath site ecchymotic, dressing C/D/I, surrounding area soft to palpation. Right pedal pulse palpable. Post PCI IV fluids infusing as ordered. The patient reports no chest pain but
does endorse some tightness around her right shoulder. PRN acetaminophen administered which relieved this pain for the patient. Sinus rhythm on telemetry with a BBB and first degree AV block, PVCs also noted. Oxygen saturation 97-100% on 3L NC which
is baseline for this patient. The patient was ordered bedrest until 2144, following bedrest the patient ambulated to the bathroom with standby assistance. Voided dark yellow urine without difficulty. Upon reassessment of cath site following
ambulation a small amount of serosanguineous drainage was noted and marked but the surrounding area remains soft to palpation and pedal pulse remains palpable. The patient denies feeling lightheaded or dizzy while in bed and/or while ambulating.
Plan of care discussed with patient. Call benz within reach. Care ongoing.
[2024-10-03] VITALS (16 sets, daily range): BP systolic 78–149; BP diastolic 44–135; PULSE 78; BMI 31.0
[2024-10-03] MEDS: SYNTHROID 75 MCG PO (03:47)
[2024-10-03 04:19] LABS: Hematocrit 28.1 % (37.0-47.0); Hemoglobin 8.6 g/dL (12.0-16.0); Mean Corp Hgb Conc. 30.6 g/dL (33.0-37.0); Mean Corpuscular Hgb 26.2 pg (27.0-31.0); Mean Corpuscular Volume 85.7 fL (81.0-99.0); Platelet Count 207 10^3/uL (130-400); Red Blood Cell Count 3.28 10^6/uL (4.20-5.40); White Blood Cell Count 6.2 10^3/uL (4.8-10.8)
[2024-10-03 04:39] LABS: Blood Urea Nitrogen 38 mg/dl (7-17); Calcium 9.5 mg/dl (8.4-10.2); Carbon Dioxide 24 mmol/L (22-30); Chloride 108 mmol/L (98-107); Estimated Creatinine Clearance 36 ml/min; Glucose 90 mg/dl (70-99); Potassium 4.6 mmol/L (3.5-5.1); Sodium 140 mmol/L (135-145); eGFR 36.57
[2024-10-03] MEDS: SPIRIVA RESPIMAT 2.5 MCG 2 PUFF INH (07:47)
[2024-10-03] MEDS: SYMBICORT 160/4.5 MCG INHALER 2 PUFF INH ×2 (07:47→20:11)
[2024-10-03] MEDS: CARAFATE SUSPENSION 1 GM PO ×3 (08:46→16:11)
[2024-10-03] MEDS: PLAVIX 75 MG PO (08:46)
[2024-10-03] MEDS: LEXAPRO 5 MG PO (08:47)
[2024-10-03] MEDS: PROTONIX 40 MG PO (08:47)
[2024-10-03] MEDS: ELIQUIS 5 MG PO ×2 (08:48→19:45)
[2024-10-03] MEDS: COLCHICINE 0.6 MG PO (08:48)
[2024-10-03] MEDS: DELTASONE 7.5 MG PO (08:48)
[2024-10-03] MEDS: LEXAPRO 20 MG PO (08:48)
[2024-10-03] MEDS: SINGULAIR 10 MG PO (08:48)
[2024-10-03] MEDS: PLAQUENIL 400 MG PO (08:48)
[2024-10-03] MEDS: ZYRTEC 10 MG PO (08:49)
[2024-10-03] MEDS: MUCINEX 600 MG PO ×2 (08:49→19:45)
[2024-10-03] MEDS: COREG 3.125 MG PO ×2 (08:49→19:45)
--- NOTE | 2024-10-03 09:09 | W.PN.HOSP.TC ---
Today's Communication/Plan
-
Continue with Plavix and Eliquis. Continue Coreg.
GDMT treatment initiation as blood pressure tolerates.
DC planning
Assessment / Plan
Assessment / Plan
#Unstable angina
#Coronary artery disease
Status post staged left heart cath and PCI and coronary stenting
Currently chest pain-free
Nitroglycerin as needed for chest pain
Patient with multivessel coronary artery disease and CT surgery has been consulted and recommended staged PCI
09/29 status post cardiac catheterization status post REBECA to LAD. Elevated left ventricular end-diastolic pressure
10/02 s/p cardiac catheterization and post REBECA to RCA
Continue with antiplatelet regimen with Plavix. Not on aspirin now.
Does not seems to be on statin as allergic with paralysis as stated. Significantly elevated cholesterol. Explore PCSK9 Inhibitors as OP
#Acute on chronic HFrEF
#Ischemic cardiomyopathy
EF of 20 to 25%
Diuresis per renal- currently on hold due to KELSEY . Monitor creatinine closely. Weight has been stable.
Spironolactone on hold due to KELSEY.
Continue with beta-jas. Blood pressure low for ARB/JOSSELYN inhibitor's.
Continue to follow hemodynamics for introduction of GDMT medications.
#Abnormal Cr -possible KELSEY
# Hyperkalemia-holding Aldactone for now
Monitor creatinine closely. Creatinine 1.5 today.
Hold valsartan and Aldactone for now. Avoid hypotension
Avoid nephrotoxin
Obtain records from PCP for baseline creatinine. Per patient she was told by primary doctor about elevated creatinine.
Patient creatinine 1.3 in 05/20
Nephrology following
# Mild hypercalcemia
Blood work ordered per nephrology.
Status post 30 mg pamidronate
#Scleroderma
#Raynaud's phenomenon
Chronic immunosuppressive state
Continue with Plaquenil and prednisone 7.5 mg daily
#COPD
#Chronic hypoxic respiratory failure
#Asthma
#Chronic dyspnea
Continue with a home bronchodilator regimen
Continue with Singulair
Continue with 3 L of home O2.
#History of pulmonary embolism
#Chronic coagulopathy with Eliquis
Eliquis is currently being held as cardiac catheterization or surgery. Continue with heparin infusion.
Patient PE was 6 months ago
Patient is due to see her primary human resources assistant end of the month
#Pericarditis
# History of effusion
Currently patient on colchicine
Vital signs are currently stable
#Neuropathy
Continue patient gabapentin
#Hypothyroidism
Continue with Synthroid
#Mood disorder
Continue with Lexapro
DVT prophylaxis heparin drip
Full code. Patient is Jehovah witness and stated will refuse blood transfusion.
Anticipated Discharge: 24 - 48 hours
Subjective/Interval History
-
Date of Service: October 03, 2024
Patient sitting in the chair comfortable. She just had sponge bath without any symptoms. Denies any chest pain or shortness of breath. She is stable on 3 L which is her home O2.
Denies any dizziness.
Objective Data
-
Labs:
Laboratory Results
10/03/24
03:43
WBC 6.2
Hgb 8.6 L
Hct 28.1 L
Plt Count 207
Sodium 140
Potassium 4.6
Chloride 108 H
Carbon Dioxide 24
BUN 38 H
Creatinine 1.5 H
Glucose 90
Calcium 9.5
Vital Signs:
Vital Signs
Temp Pulse Resp BP Pulse Ox
97.8 F 88 16 111/67 100
10/03/24 07:13 10/03/24 08:49 10/03/24 07:50 10/03/24 08:49 10/03/24 07:50
I&O
10/02/24 10/03/24 10/04/24
06:59 06:59 06:59
Intake Total 656 / 656 630 / 630
Output Total 2600 / 2600 1350 / 1350
Balance -1944 / -1944 -720 / -720
Physical Exam
-
General: No Apparent Distress
Respiratory: Clear to Auscultation and Non Labored Respirations; Negative Accessory Resp Muscle Use
Cardiac: Regular Rhythm and S1/S2
GI: Soft
Neuro: AO x 3
Data Reviewed
-
Labs: Labs Reviewed by me
[2024-10-03 09:13] LABS: 24 Hour Urine Total Volume 2200 mL; Urine Collection Length 24 hr; Urine Free Kappa Excretion/Day 8.56 mg/d; Urine Free Kappa Light Chains 3.89 mg/L (0.00-32.90); Urine Free Lambda Light Chains <0.74 mg/L (0.00-3.79)
--- NOTE | 2024-10-03 10:34 | CM ---
Reviewed chart. Met with Mrs. Gonzales to review discharge plan. She states she is feeling well and maybe able to go home. We reviewed resuming her services with [facility]. She is agreeable to [facility]. Prior to admission she resides alone
in a second floor apartment. She has a stairs glide to get to the second floor. She has a first floor set-up once inside the apartment. She ambulates with a walker. She has a walker, rollator, single point cane , home 02 and a stair glide. She
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 She has a prescription plan and uses [facility]. Medical work-up in progress. The discharge plan is to return home with resumption of [facility] and [employer] when medically
stable.
--- NOTE | 2024-10-03 12:42 | W.PN.CARDCBS ---
Addendum entered and electronically signed by Elias Judd MD 10/03/24 13:40:
I saw and examined the patient.
The Health Policy Nurse's note was reviewed and I agree with the note.
Comment: Briefly, 74-year-old woman past medical history of cardiomyopathy with severely reduced left ventricular ejection fraction who was referred for left and right heart catheterization which revealed increased left and right filling pressures
as well as multivessel CAD.
Evaluated for surgical revascularization however the decision was made for staged PCI procedure. Intervention on the LAD 09/29/2024 and subsequent PCI of the RCA 10/02/2024.
Plan for Plavix/Eliquis as well as beta-jas
Documented statin intolerance. Will follow-up with her primary child guidance counselor to discuss alternative lipid-lowering therapy.
Volume status is reasonable today on exam
However LVEDP was still mildly elevated at 20 mmHg yesterday based on invasive hemodynamics
Plan for further diuresis prior to discharge
In regards to GDMT for her CM would continue Coreg
Valsartan and spironolactone have been on hold - would add back as blood pressure and renal function tolerate
Original Note:
Today's Communication / Plan
-
diurese
DC planning
Impression / Plan
-
Primary Flight Operations Specialist: Dr. Rodger Bacon
Assessment:
Multivessel CAD
Status post LAD PCI 2004 at [facility]
s/p 2 overlapping 2.5 x 30 mm and 2.25 x 30 mm Medtronic Cedar drug-eluting stents 09/29/2024
ICM, EF 20 to 25%
Acute on chronic HFrEF with elevated filling pressures on catheterization 09/29/2024
CKD3B
HTN
HLD
COPD on chronic 3L supp O2
History of PE
Chronic OAC with eliquis
History of statin intolerance (paralysis)
Raynaud's syndrome
Scleroderma on chronic steroids
Neuropathy
Hypothyroidism
History of breast cancer s/p mastectomy, chemo, radiation
Obesity
LOUISE on CPAP
Chronic anemia
ECHO 09/26/24: EF 20-25%, global hypokinesis, mod cLVH, stage 1 diastolic dysfunction, mild , small to mod pericardial effusion to LV, ascending aorta dilatation measuring 4.1cm
Cardiac cath 09/2024: LM: 20% stenosis. LAD: Proximal to mid heavily calcified with 50% followed by 95% stenosis at second diagonal s/p 2 overlapping 2.5 x 30 mm and 2.25 x 30 mm Medtronic Burak drug-eluting stents (09/29/2024). First diagonal ostial
70% stenosis. Left circumflex: Ostial 70% stenosis. RCA: Mid 80% stenosis.
Hemodynamics:RA (m) : 17, RV (s/d,m) : 52/11, 14, PA (s/d, m) : 52/26, 37, PCWP (m) : 20, PA saturation: 61.5% on room air, AO saturation: 88.9% on room air, RA saturation: 57.2% on room air, Cardiac Output : 5.34 L/min by Zehra calculation, Cardiac
Index : 2.77 L/min/m-2 by Zehra calculation, Systemic vascular resistance: 943 dsc^(-5), Pulmonary vascular resistance: 3.56 saucedo unit
Plan:
- Patient had hospitalization at [place] in mid August 2024 with acute decompensated heart failure and found to have EF of 20 to 25% by echo. Then underwent subsequent pharmacologic nuclear stress test, also abnormal with post-rest EF of 17%. She
underwent left and right heart cath on 09/26/2024 and was found to have multivessel coronary disease of LAD, OM1, RCA. she was felt to be high risk for CABG given comorbidities. Patient has baseline CKD 3B.
- s/p proximal to mid LAD overlapping 2.5 x 30 mm and 2.25 x 30 mm Medtronic Cedar drug-eluting stents 09/29/2024. s/p 3 overlapping Medtronic Cedar REBECA to prox to mid RCA 10/02/24.
-LVEDP post cath 10/02 was 20. d/w nephrology. will plan to continue IV lasix 40mg BID overnight and consider transition to po 10/04. Cr stable at 1.5
-remains in SR with PVCs on review of tele overnight. she has chronic LBBB.
-of note she has history of intolerance to aspirin with symptoms of severe abd pain, diarrhea, and cold sweats. discussed with IC. continue eliquis, plavix
-R groin site with mild ecchymoses however soft, NTTP. hgb 8.6 on 10/03. follow
- She is back to baseline 3 L nasal cannula.
- CHF education
- In sinus rhythm on review of telemetry
- ECHO 09/26 remains with EF 20-25%. will need repeat echo as OP to reeval EF post revascularization
- Continue GDMT of ischemic cardiomyopathy with Coreg. Outpatient valsartan and Aldactone presently on hold given CKD and hypotension. Could consider addition of SGLT2 inhibitor if cost affordable and renal function remains stable
- Continue colchicine given chronic pericarditis
- OP follow up with Ángela HOGAN, Dr. Bacon
- d/w nursing. d/w nephrology. d/w hospitalist via TT
Progress Note - Flight Operations Specialist
Subjective
Date of Service: October 03, 2024
denies CP. reports minimal groin discomfort.
Objective
Labs:
10/03/24 03:43
10/03/24 03:43
Labs
Hgb 8.6 g/dL (12.0-16.0) L 10/03/24 03:43
Hct 28.1 % (37.0-47.0) L 10/03/24 03:43
Plt Count 207 10^3/uL (130-400) 10/03/24 03:43
APTT Cancelled 10/02/24 11:10
Sodium 140 mmol/L (135-145) 10/03/24 03:43
Potassium 4.6 mmol/L (3.5-5.1) 10/03/24 03:43
BUN 38 mg/dl (7-17) H 10/03/24 03:43
Creatinine 1.5 mg/dL (0.6-1.0) H 10/03/24 03:43
Glucose 90 mg/dl (70-99) 10/03/24 03:43
Vital Signs and I&O:
Vital Signs
Temp Pulse Resp BP Pulse Ox
97.8 F 85 16 111/ 96
10/03/24 07:13 10/03/24 09:30 10/03/24 07:50 10/03/24 08:49 10/03/24 08:30
Vital Signs
Temp Pulse Resp BP Pulse Ox
97.8 F 85 16 111/67 96
10/03/24 07:13 10/03/24 09:30 10/03/24 07:50 10/03/24 08:49 10/03/24 08:30
Intake & Output
10/01/24 10/02/24 10/03/24 10/04/24
07:59 07:59 07:59 07:59
Intake Total 240 / 240 656 / 656 630 / 630
Output Total 2400 / 2400 2600 / 2600 1350 / 1350 300 / 300
Balance -2160 / -2160 -1944 / -1944 -720 / -720 -300 / -300
Physical Exam
Physical Exam
GEN: No distress, awake, alert, oriented x3. sitting in chair. on supp O2
HEENT: supple, anicteric, mmm, eomi
LUNGS: CTA B/L, no wheezes
CV: Reg, S1/S2, no murmur
ABD: soft, BS+, NT/ND
EXT: No cyanosis, clubbing, edema
NEURO: Gross non-focal
SKIN: Warm, pink, dry. No rash. R groin site with dressing c/d/i, mild surrounding ecchymoses
--- NOTE | 2024-10-03 13:17 | W.PN.NEPH.PH ---
Today's Communication / Plan
-
lasix 40mg IV BID
follow bmp
creatinine stable 1.5 post cath 10/02
Assessment/Plan
-
74-year-old female with extensive past medical history including CAD with prior stents, CKD, COPD, breast cancer s/p mastectomy with chemo/radiation, was recently admitted to [facility] for pericarditis and pericardial effusion which was not
drained (on colchicine). Patient was referred for further cardiac workup at [facility] due to SOB/SALINAS and presents 09/27/23 for diagnostic cardiac catheterization. Severe LAD and RCA disease in setting of low EF 25%. she uses 2 L of oxygen at baseline due
to her history of severe COPD the patient has no history of smoke
Renal consult for PATRIA prevention in the setting of elevated creatinine. Uncertain to the patient's baseline
Impression.
KELSEY with uncertain baseline
Coronary artery disease requiring cardiac catheterization stenting.
Severe COPD on 2 L oxygen.
Pericarditis/pericardial effusion, chronic
Scleroderma unknown if limited or systemic
Rheumatoid arthritis
Hypercalcemia
Heart failure reduced ejection fraction 25%
Hypotension
History of pulmonary embolism
History of breast cancer right, in remission
Plan.
lasix provided 40mg IV BID for PCWP ~20
Creatinine down to 1.5 s/p cath on 10/02/24
Hypercalcemia workup pending, PTH 41 (inappropriately normal
Pamidronate 30 mg 09/29: calcium 10
Eventual SGLT2
Unlikely she will tolerate RAASi given low blood pressure
-
-
Date of Service: October 03, 2024
CC / HPI / ROS
-
Chief Complaint:
KELSEY
History of Present Illness:
KELSEY/Cr down to 1.5
s/p Aredia 09/29, calcium down to 10.
K better 4.6
BP still low
responded to lasix for high filling pressures/CHF, UOP > 2L
on 3L O2 chronically (at home)
calcium at 9.5
Review of Systems:
no CP/SOB
Labs
-
Labs:
WBC 6.2 10^3/uL (4.8-10.8) 10/03/24 03:43
RBC 3.28 10^6/uL (4.20-5.40) L 10/03/24 03:43
Hgb 8.6 g/dL (12.0-16.0) L 10/03/24 03:43
Hct 28.1 % (37.0-47.0) L 10/03/24 03:43
Plt Count 207 10^3/uL (130-400) 10/03/24 03:43
Sodium 140 mmol/L (135-145) 10/03/24 03:43
Potassium 4.6 mmol/L (3.5-5.1) 10/03/24 03:43
Chloride 108 mmol/L (98-107) H 10/03/24 03:43
Carbon Dioxide 24 mmol/L (22-30) 10/03/24 03:43
BUN 38 mg/dl (7-17) H 10/03/24 03:43
Creatinine 1.5 mg/dL (0.6-1.0) H 10/03/24 03:43
eGFR 36.57 10/03/24 03:43
Glucose 90 mg/dl (70-99) 10/03/24 03:43
Calcium 9.5 mg/dl (8.4-10.2) 10/03/24 03:43
Phosphorus 3.4 mg/dl (2.5-4.5) 09/29/24 13:50
Albumin 4.5 g/dl (3.5-5.0) 09/26/24 07:52
Physical Exam
-
Vital Signs:
Vital Signs
Temp Pulse Resp BP Pulse Ox
97.8 F 85 16 111/67 96
10/03/24 07:13 10/03/24 09:30 10/03/24 07:50 10/03/24 08:49 10/03/24 08:30
Cardiovascular:: Regular rate and rhythm
Respiratory:: Bilateral: Coarse
Lung Excursion:: Normal
Abdomen:: Nontender
Extremity Edema:: None: Bilateral:
Live Catheter: No
[2024-10-03] MEDS: FLUSH (NSS) 1 FLUSH IV (16:11)
[2024-10-03] MEDS: LASIX 40 MG IV (16:11)
[2024-10-03] MEDS: NEURONTIN 300 MG PO (21:28)
[2024-10-03] MEDS: FLEXERIL 10 MG PO (21:28)
[2024-10-03] MEDS: ATIVAN 0.5 MG PO (22:42)
[2024-10-03] MEDS: MELATONIN 3 MG PO (22:42)
--- NOTE | 2024-10-03 23:08 | PTCARENOTE ---
Patient received at change of shift resting in the bed. Right groin site ecchymotic but soft to palpation, old serosanguineous drainage noted and is unchanged from being previously marked. Right pedal pulse palpable. The patient has no complaints of
pain. Ambulates independently without issue. Voiding in the bathroom appropriately. Sinus rhythm with a LBBB on telemetry. Oxygen saturation on 3L NC 98-100%. Plan of care discussed. Call benz within reach. Care ongoing.
[2024-10-04] VITALS (12 sets, daily range): BP systolic 82–111; BP diastolic 38–59; PULSE 81–82; BMI 31.0
[2024-10-04 04:18] LABS: Hematocrit 24.9 % (37.0-47.0); Hemoglobin 7.9 g/dL (12.0-16.0); Mean Corp Hgb Conc. 31.7 g/dL (33.0-37.0); Mean Corpuscular Hgb 26.3 pg (27.0-31.0); Mean Platelet Volume 10.1 fL (7.4-10.4); Platelet Count 178 10^3/uL (130-400); Red Cell Dist. Width 15.9 % (11.5-14.5)
[2024-10-04 05:03] LABS: Blood Urea Nitrogen 35 mg/dl (7-17); Calcium 9.4 mg/dl (8.4-10.2); Carbon Dioxide 23 mmol/L (22-30); Chloride 106 mmol/L (98-107); Estimated Creatinine Clearance 36 ml/min; Glucose 98 mg/dl (70-99); Magnesium 2.3 mg/dl (1.6-2.3); Potassium 4.8 mmol/L (3.5-5.1); Sodium 137 mmol/L (135-145); eGFR 36.57
[2024-10-04] MEDS: SYNTHROID 75 MCG PO (05:12)
[2024-10-04] MEDS: SPIRIVA RESPIMAT 2.5 MCG 2 PUFF INH (08:03)
[2024-10-04] MEDS: SYMBICORT 160/4.5 MCG INHALER 2 PUFF INH ×2 (08:03→19:21)
[2024-10-04] MEDS: CARAFATE SUSPENSION 1 GM PO ×3 (08:08→16:29)
--- NOTE | 2024-10-04 08:12 | W.PN.CARDCBS ---
Addendum entered and electronically signed by Qi Wick MD 10/04/24 14:27:
I saw and examined the patient.
The Adult And Pediatric Neurologist's note was reviewed and I agree with the note.
Comment: Overall patient is doing quite well. She had some dyspnea exertion with short walk yesterday however tells me that has significantly improved today. No chest discomfort.
Vital signs and lab work reviewed. On exam patient is well-appearing, out of bed in a chair, awake, alert and oriented x 3, regular rate, normal S1 and S2, no murmurs, rubs or gallops, mildly decreased breath sounds at the bases but otherwise
clear, abdomen is soft, nontender, nondistended with active bowel sounds, right groin site with mild ecchymosis without evidence of hematoma or bruit, warm extremities without significant edema
Hemoglobin noted at 7.9 creatinine stable at 1.5
Recommendations:
1. With a slight hemoglobin drop to 7.9 without evidence of overt bleeding, we will plan on discontinuing aspirin at this time and continuing Plavix and Eliquis with close monitoring of blood counts. We will check iron studies. I assume the mild
drop in hemoglobin is due to the blood work and being in the hospital. IV iron as needed based on iron studies.
2. Continue IV Lasix with plan to switch to p.o. starting tomorrow.
3. Continue to optimize goal-directed medical therapy for severe ischemic cardiomyopathy. Will plan on adding Farxiga 10 mg daily while continuing Aldactone, carvedilol for now. Blood pressures at times are soft precluding addition of any other
medications for now.
4. Out of bed to chair and ambulation. PT OT.
5. Outpatient referral for cardiac rehab. Counseled on importance of a heart healthy Mediterranean type diet that is high in fiber and discussion of nonstatin agents that are lipid-lowering as an outpatient given significant hyperlipidemia that is
not currently controlled.
6. Discussed with case management in regards to cost of Farxiga and overall discharge planning.
Anticipate discharge in the next 24 to 48 hours.
Qi Wick MD, [facility], FSCAI
Original Note:
Today's Communication / Plan
-
follow hgb. check iron studies
continue IV lasix, consider transition to po in next 24 hours
GDMT as able
ambulate/cardiac rehab
DC planning
Impression / Plan
-
Primary Pickle Solution Maker: Dr. Rodger Bacon
Assessment:
Multivessel CAD
Status post LAD PCI 2004 at [facility]
s/p 2 overlapping 2.5 x 30 mm and 2.25 x 30 mm Medtronic Burak drug-eluting stents 09/29/2024
ICM, EF 20 to 25%
Acute on chronic HFrEF with elevated filling pressures on catheterization 09/29/2024
CKD3B
HTN
HLD
COPD on chronic 3L supp O2
History of PE
Chronic OAC with eliquis
History of statin intolerance (paralysis)
Raynaud's syndrome
Scleroderma on chronic steroids
Neuropathy
Hypothyroidism
History of breast cancer s/p mastectomy, chemo, radiation
Obesity
LOUISE on CPAP
Chronic anemia
ECHO 09/26/24: EF 20-25%, global hypokinesis, mod cLVH, stage 1 diastolic dysfunction, mild , small to mod pericardial effusion to LV, ascending aorta dilatation measuring 4.1cm
Cardiac cath 09/2024: LM: 20% stenosis. LAD: Proximal to mid heavily calcified with 50% followed by 95% stenosis at second diagonal s/p 2 overlapping 2.5 x 30 mm and 2.25 x 30 mm Medtronic Lawson drug-eluting stents (09/29/2024). First diagonal ostial
70% stenosis. Left circumflex: Ostial 70% stenosis. RCA: Mid 80% stenosis.
Hemodynamics:RA (m) : 17, RV (s/d,m) : 52/11, 14, PA (s/d, m) : 52/26, 37, PCWP (m) : 20, PA saturation: 61.5% on room air, AO saturation: 88.9% on room air, RA saturation: 57.2% on room air, Cardiac Output : 5.34 L/min by Zehra calculation, Cardiac
Index : 2.77 L/min/m-2 by Zehra calculation, Systemic vascular resistance: 943 dsc^(-5), Pulmonary vascular resistance: 3.56 saucedo unit
Plan:
- s/p proximal to mid LAD overlapping 2.5 x 30 mm and 2.25 x 30 mm Medtronic Burak drug-eluting stents 09/29/2024. s/p 3 overlapping Medtronic Burak REBECA to prox to mid RCA 10/02/24.
- LVEDP post cath 10/02 was 20. weight stable overnight however I&O -2L overnight, ? weight inaccurate. will give dose of IV lasix again this AM as Cr stable at 1.5 and consider transition to po within 24 hours.
- She is back to baseline 3 L nasal cannula.
- CHF education
- remains in SR with PVCs on review of tele overnight. she has chronic LBBB.
- of note she has history of intolerance to aspirin with symptoms of severe abd pain, diarrhea, and cold sweats. discussed with IC. continue eliquis, plavix
- R groin site with mild ecchymoses however soft, NTTP. hgb downtrending, 7.9 on 10/04. she is Muslim so will not accept blood transfusions. check iron studies. hemetest stools.
- ECHO 09/26 remains with EF 20-25%. will need repeat echo as OP to reeval EF post revascularization
- Continue GDMT of ischemic cardiomyopathy with Coreg. Outpatient valsartan and Aldactone presently on hold given CKD and hypotension. Could consider addition of SGLT2 inhibitor if cost affordable and renal function remains stable
- Continue colchicine given chronic pericarditis
- Encouraged ambulation
- Cardiac rehab
- OP follow up with Ángela HOGAN, Dr. Bacon
ADMISSION DATA:
- Patient had hospitalization at [facility] in mid August 2024 with acute decompensated heart failure and found to have EF of 20 to 25% by echo. Then underwent subsequent pharmacologic nuclear stress test, also abnormal with post-rest EF of 17%. She
underwent left and right heart cath on 09/26/2024 and was found to have multivessel coronary disease of LAD, OM1, RCA. she was felt to be high risk for CABG given comorbidities. Patient has baseline CKD 3B.
Progress Note - Pickle Solution Maker
Subjective
Date of Service: October 04, 2024
Reports feeling well. No issues overnight. Denies groin pain. Reports good urine output overnight
Objective
Labs:
10/04/24 04:04
10/04/24 04:04
Labs
Hgb 7.9 g/dL (12.0-16.0) L 10/04/24 04:04
Hct 24.9 % (37.0-47.0) L 10/04/24 04:04
Plt Count 178 10^3/uL (130-400) 10/04/24 04:04
APTT Cancelled 10/02/24 11:10
Sodium 137 mmol/L (135-145) 10/04/24 04:04
Potassium 4.8 mmol/L (3.5-5.1) 10/04/24 04:04
BUN 35 mg/dl (7-17) H 10/04/24 04:04
Creatinine 1.5 mg/dL (0.6-1.0) H 10/04/24 04:04
Glucose 98 mg/dl (70-99) 10/04/24 04:04
Vital Signs and I&O:
Vital Signs
Temp Pulse Resp BP Pulse Ox
98 F 79 16 94/52 100
10/04/24 03:39 10/04/24 08:09 10/04/24 08:09 10/04/24 07:29 10/04/24 08:09
Vital Signs
Temp Pulse Resp BP Pulse Ox
98 F 79 16 94/52 100
10/04/24 03:39 10/04/24 08:09 10/04/24 08:09 10/04/24 07:29 10/04/24 08:09
Intake & Output
10/02/24 10/03/24 10/04/24 10/05/24
07:59 07:59 07:59 07:59
Intake Total 656 / 656 630 / 630 630 / 630
Output Total 2600 / 2600 1350 / 1350 2700 / 2700 500 / 500
Balance -1944 / -1944 -720 / -720 -2070 / -2070 -500 / -500
Physical Exam
Physical Exam
GEN: No distress, awake, alert, oriented x3. on supp O2
HEENT: supple, anicteric, mmm, eomi
LUNGS: CTA B/L, no wheezes
CV: Reg, S1/S2, no murmur
ABD: soft, BS+, NT/ND
EXT: No cyanosis, clubbing, edema
NEURO: Gross non-focal
SKIN: Warm, pink, dry. No rash. R groin site with dressing c/d/i, mild surrounding ecchymoses
[2024-10-04] MEDS: ELIQUIS 5 MG PO ×2 (08:49→19:57)
[2024-10-04] MEDS: PLAQUENIL 400 MG PO (08:49)
[2024-10-04] MEDS: LEXAPRO 20 MG PO (08:53)
[2024-10-04] MEDS: SINGULAIR 10 MG PO (08:53)
[2024-10-04] MEDS: MUCINEX 600 MG PO ×2 (08:53→19:57)
[2024-10-04] MEDS: PLAVIX 75 MG PO (08:54)
[2024-10-04] MEDS: COLCHICINE 0.6 MG PO (08:55)
[2024-10-04] MEDS: DELTASONE 7.5 MG PO (08:55)
[2024-10-04] MEDS: PROTONIX 40 MG PO (08:56)
[2024-10-04] MEDS: ZYRTEC 10 MG PO (08:56)
[2024-10-04] MEDS: LASIX 40 MG IV ×2 (08:56→16:28)
[2024-10-04] MEDS: COREG 3.125 MG PO ×2 (08:57→19:57)
[2024-10-04] MEDS: LEXAPRO 5 MG PO (08:57)
[2024-10-04 09:10] LABS: Iron 43 ug/dl (37-170)
[2024-10-04 09:19] LABS: Percent Saturation 11 % (20-50); Total Iron Binding Capacity 387 ug/dl (265-497)
[2024-10-04 09:37] LABS: Ferritin 34.4 ng/ml (11.1-264.0)
--- NOTE | 2024-10-04 10:52 | CM ---
Reviewed chart. Met with Mrs. Gonzales to review discharge plans. She states she is feeling well and maybe able to go home soon. She is agreeable to [facility]. Prior to admission she resides alone on a second floor apartment. She
has a stair glide to get into the apartment. Prior to admission she ambulates with a walker. She has a rollator, walker Home 02 and single point cane at home. She gets 49 hours a week of [employer] services. She has a prescription plan and uses [facility]. Medical work-up in progress. The discharge plan is to return home with [facility] home and her [employer] when medically stable.
--- NOTE | 2024-10-04 11:22 | W.PN.NEPH.PH ---
Today's Communication / Plan
-
follow BMP
Assessment/Plan
-
74-year-old female with extensive past medical history including CAD with prior stents, CKD, COPD, breast cancer s/p mastectomy with chemo/radiation, was recently admitted to [facility] for pericarditis and pericardial effusion which was not
drained (on colchicine). Patient was referred for further cardiac workup at [facility] due to SOB/SALINAS and presents 09/27/23 for diagnostic cardiac catheterization. Severe LAD and RCA disease in setting of low EF 25%. she uses 2 L of oxygen at baseline due
to her history of severe COPD the patient has no history of smoke
Renal consult for PATRIA prevention in the setting of elevated creatinine. Uncertain to the patient's baseline
Impression.
KELSEY with uncertain baseline
Coronary artery disease requiring cardiac catheterization stenting LAD 09/29, RCA 10/02
Severe COPD on 2 L oxygen.
Pericarditis/pericardial effusion, chronic
Scleroderma unknown if limited or systemic
Rheumatoid arthritis
Hypercalcemia
Heart failure reduced ejection fraction 25%
Hypotension
History of pulmonary embolism
History of breast cancer right, in remission
Plan.
follow BMP
continue IV lasix today, mercy convert to po tomorrow
Hypercalcemia workup pending
Pamidronate 30 mg 09/29
Eventual SGLT2i after po lasix
Unlikely she will tolerate RAASi given low blood pressure
-
-
Date of Service: October 04, 2024
CC / HPI / ROS
-
Chief Complaint:
KELSEY
History of Present Illness:
KELSEY/Cr down to 1.5 stable
s/p Aredia 09/29, calcium down to 9.4
hgb down to 7.9
BP still low
responded to lasix for high filling pressures/CHF, UOP > 2L
on 3L O2 chronically (at home)
Review of Systems:
no CP/SOB
Labs
-
Labs:
WBC 7.0 10^3/uL (4.8-10.8) 10/04/24 04:04
RBC 3.00 10^6/uL (4.20-5.40) L 10/04/24 04:04
Hgb 7.9 g/dL (12.0-16.0) L 10/04/24 04:04
Hct 24.9 % (37.0-47.0) L 10/04/24 04:04
Plt Count 178 10^3/uL (130-400) 10/04/24 04:04
Sodium 137 mmol/L (135-145) 10/04/24 04:04
Potassium 4.8 mmol/L (3.5-5.1) 10/04/24 04:04
Chloride 106 mmol/L (98-107) 10/04/24 04:04
Carbon Dioxide 23 mmol/L (22-30) 10/04/24 04:04
BUN 35 mg/dl (7-17) H 10/04/24 04:04
Creatinine 1.5 mg/dL (0.6-1.0) H 10/04/24 04:04
eGFR 36.57 10/04/24 04:04
Glucose 98 mg/dl (70-99) 10/04/24 04:04
Calcium 9.4 mg/dl (8.4-10.2) 10/04/24 04:04
Phosphorus 3.4 mg/dl (2.5-4.5) 09/29/24 13:50
Albumin 4.5 g/dl (3.5-5.0) 09/26/24 07:52
Physical Exam
-
Vital Signs:
Vital Signs
Temp Pulse Resp BP Pulse Ox
97.3 F 79 16 94/52 100
10/04/24 07:00 10/04/24 08:09 10/04/24 08:09 10/04/24 08:57 10/04/24 08:42
Cardiovascular:: Regular rate and rhythm
Respiratory:: Bilateral: Coarse
Lung Excursion:: Normal
Abdomen:: Nontender and Soft
Bowel Sounds:: Normal
Extremity Edema:: +1: Bilateral:
--- NOTE | 2024-10-04 14:04 | W.PN.HOSP.TC ---
Today's Communication/Plan
-
Continue with IV diuresis. Follow creatinine.
Consult GI. Follow H&H. Check iron studies.
Assessment / Plan
Assessment / Plan
#Unstable angina
#Coronary artery disease
Status post staged left heart cath and PCI and coronary stenting
Currently chest pain-free
Nitroglycerin as needed for chest pain
Patient with multivessel coronary artery disease and CT surgery has been consulted and recommended staged PCI
09/29 status post cardiac catheterization status post REBECA to LAD. Elevated left ventricular end-diastolic pressure
10/02 s/p cardiac catheterization and post REBECA to RCA
Continue with antiplatelet regimen with Plavix. Not on aspirin now.
Does not seems to be on statin as allergic with paralysis as stated. Significantly elevated cholesterol. Explore PCSK9 Inhibitors as OP
#Acute on chronic HFrEF
#Ischemic cardiomyopathy
EF of 20 to 25%
Diuresis per renal- on Lasix. Monitor creatinine closely. .
Spironolactone on hold due to KELSEY.
Continue with beta-jas. Blood pressure low for ARB/JOSSELYN inhibitor's.
Continue to follow hemodynamics for introduction of GDMT medications.
#Abnormal Cr -possible KELSEY
# Hyperkalemia-holding Aldactone for now
Monitor creatinine closely. Creatinine 1.5 today.
Hold valsartan and Aldactone for now. Avoid hypotension
Avoid nephrotoxin
Obtain records from PCP for baseline creatinine. Per patient she was told by primary doctor about elevated creatinine.
Patient creatinine 1.3 in 05/20
Nephrology following
#Anemia-normocytic
According to the patient was told she was anemic in the past. No history of GI bleed.
She had brown stool yesterday but heme positive.
Able to keep hemoglobin more than 7. Consult GI.
Patient on Eliquis and Plavix.
She is also on chronic steroids for her rheumatoid arthritis. She is on PPI and Carafate.
Blood pressure stable.
# Mild hypercalcemia
Blood work ordered per nephrology.
Status post 30 mg pamidronate
#Scleroderma
#Raynaud's phenomenon
Chronic immunosuppressive state
Continue with Plaquenil and prednisone 7.5 mg daily
#COPD
#Chronic hypoxic respiratory failure
#Asthma
#Chronic dyspnea
Continue with a home bronchodilator regimen
Continue with Singulair
Continue with 3 L of home O2.
#History of pulmonary embolism
#Chronic coagulopathy with Eliquis
Eliquis is currently being held as cardiac catheterization or surgery. Continue with heparin infusion.
Patient PE was 6 months ago
Patient is due to see her primary casing worker end of the month
#Pericarditis
# History of effusion
Currently patient on colchicine
Vital signs are currently stable
#Neuropathy
Continue patient gabapentin
#Hypothyroidism
Continue with Synthroid
#Mood disorder
Continue with Lexapro
DVT prophylaxis heparin drip
Full code. Patient is Jehovah witness and stated will refuse blood transfusion.
Anticipated Discharge: 24 - 48 hours
Subjective/Interval History
-
Date of Service: October 04, 2024
No chest pain. Not short of breath.
Tolerating diet.
Denying any blood in the stools currently. She had brown heme positive stools yesterday. She says she had no prior GI bleeding but had troubles with hemorrhoids needing surgery twice. She says she is up-to-date with colonoscopy .
Objective Data
-
Labs:
Laboratory Results
10/04/24
04:04
WBC 7.0
Hgb 7.9 L
Hct 24.9 L
Plt Count 178
Sodium 137
Potassium 4.8
Chloride 106
Carbon Dioxide 23
BUN 35 H
Creatinine 1.5 H
Glucose 98
Calcium 9.4
Vital Signs:
Vital Signs
Temp Pulse Resp BP Pulse Ox
98.2 F 80 20 111/57 92
10/04/24 11:00 10/04/24 13:00 10/04/24 11:00 10/04/24 11:07 10/04/24 11:00
I&O
10/03/24 10/04/24 10/05/24
06:59 06:59 06:59
Intake Total 630 / 630 630 / 630
Output Total 1350 / 1350 2700 / 2700 1550 / 1550
Balance -720 / -720 -2070 / -2070 -1550 / -1550
Physical Exam
-
Respiratory: Clear to Auscultation and Non Labored Respirations; Negative Accessory Resp Muscle Use
Cardiac: Regular Rhythm and S1/S2
GI: Soft and Nontender
Neuro: AO x 3
Data Reviewed
-
Labs: Labs Reviewed by me
--- NOTE | 2024-10-04 14:26 | CON.GI ---
Consultation
-
Date/Time Consultation Performed: 10/04/24
Performing Provider: Gume Paula MD
Reason for Consultation: anemia
Medical History
Chief Complaint / HPI
Chief Complaint: sob
History of Present Illness:
The patient is a 74-year-old female with past medical history as noted who was transferred to [place] with non-ST elevation WI. Her hospital course has included catheterization with new stents, now on Plavix. She had been chronically on
anticoagulation for DVT/PE, though not on aspirin given intolerance. She states that she has been chronically anemic the past few times she has seen her primary, at least for more than a year, and thinks that her iron may have been low at that
time. She has not taken any iron. She has no significant GI complaints and denies any melena or gross bleeding. She denies any abdominal pain, nausea or vomiting, fever or chills. She had an endoscopy at the [facility] a year ago
with gastric polyps that were benign by report, last colonoscopy in [place] 3 years ago which was also unremarkable. She was also diagnosed with scleroderma, with Raynaud's and skin angiectasia. Currently she is feeling okay, shortness of breath
is improved, denies any chest pain.
Past Medical History
Past Medical History: Other (Asthma, CAD (prior stents 2003), Cancer (right breast cancer), COPD (non-smoker), SALINAS, Hypothyroidism and LOUISE (uses CPAP), chronic small right pulmonary emboli, scleroderma; pericardial effusion; pleural effusion
requiring thoracentesis; Arnett's palsy; Raynaud's; peripheral neuropathy)
Past Surgical History: Other (Mastectomy (right with rectus flap reconstruction) and Other (B/L intraocular lens implanrs) Social History)
Social History
Tobacco: Non-Smoker
Alcohol: None
Family History
Family History: Reviewed & Not Pertinent
Allergies / Home Medications
Allergy/AdvReac Type Severity Reaction Status Date / Time
adhesive Allergy Blisters Verified 09/26/24 11:33
aspirin Allergy Nausea / Verified 09/26/24 16:15
Vomiting
Beta-Blockers Allergy depression Verified 09/26/24 11:33
(Beta-Adrenergic Bloc
colesevelam (From WelChol) Allergy Nausea / Verified 09/26/24 11:33
Vomiting
ezetimibe (From Zetia) Allergy Muscle pain Verified 09/26/24 11:33
fish oil Allergy Unknown Verified 09/26/24 11:33
Pbrerap-BFZ-FxE Reductase Allergy paralysis Verified 09/26/24 11:33
Inhibitor
�Medication �Instructions �Recorded
albuterol sulfate 90 mcg/actuation 2 puff inhalation Q6H PRN COPD 09/26/24
aerosol inhaler
apixaban 5 mg tablet (Eliquis) 5 mg PO BID 09/26/24
azelastine 137 mcg (0.1 %) nasal 1 spray intranasal BID 09/26/24
spray
budesonide 160 mcg-glycopyr 9 2 inh inhalation BID 09/26/24
mcg-formot 4.8 mcg/actuation HFA
inhaler (Breztri Aerosphere)
carvedilol 3.125 mg tablet 3.125 mg PO BID 09/26/24
cetirizine 10 mg tablet 10 mg PO DAILY 09/26/24
clopidogrel 75 mg tablet (Plavix) 75 mg PO DAILY 09/26/24
colchicine 0.6 mg tablet 0.6 mg PO DAILY 09/26/24
cyclobenzaprine 10 mg tablet 10 mg PO HS 09/26/24
dexlansoprazole 60 mg 60 mg PO DAILY 09/26/24
capsule,biphase delayed release
escitalopram oxalate 20 mg tablet 20 mg PO DAILY 09/26/24
escitalopram oxalate 5 mg tablet 5 mg PO DAILY 09/26/24
fluticasone propionate 50 2 spray intranasal BID 09/26/24
mcg/actuation nasal
spray,suspension
gabapentin 300 mg capsule 300 mg PO HS 09/26/24
guaifenesin 600 mg tablet, 600 mg PO BID 09/26/24
extended release 12 hr
hydroxychloroquine 400 mg tablet 400 mg PO DAILY 09/26/24
levothyroxine 75 mcg tablet 75 mcg PO DAILY 09/26/24
lorazepam 1 mg tablet 0.5 mg PO HS PRN anxiety 09/26/24
montelukast 10 mg tablet 10 mg PO DAILY 09/26/24
multivitamin-ferrous 1 tab PO DAILY 09/26/24
fumarate-folic acid 18 mg-400 mcg
tablet (Centrum Women)
nitroglycerin 0.4 mg sublingual 0.4 mg sublingual Q5-15M PRN Chest 09/26/24
tablet pain
pantoprazole 40 mg tablet,delayed 40 mg PO DAILY 09/26/24
release
spironolactone 25 mg tablet 25 mg PO DAILY 09/26/24
sucralfate 100 mg/mL oral 10 ml PO AC 09/26/24
suspension
torsemide 10 mg tablet 10 mg PO DAILY 09/26/24
valsartan 160 mg tablet 80 mg PO DAILY 09/26/24
vitamin B complex 1 tab PO DAILY 09/26/24
prednisone 7.5 mg PO DAILY 09/28/24
Review of Systems
-
All other systems: A 12 pt ROS was Negative except as stated above in HPI
Vital Signs
Temp Pulse Resp BP Pulse Ox
98.2 F 80 20 111/57 92
10/04/24 11:00 10/04/24 13:00 10/04/24 11:00 10/04/24 11:07 10/04/24 11:00
Physical Exam
Exam
General: NAD
HEENT: MMM, anicteric, no lymphadenopathy
Heart: Regular, no murmurs
Lungs: Decreased breath sounds bilaterally
Abdomen: normal bowel sounds, soft, no tenderness, no rebound or guarding, no masses, bruits or ascites
Extremeties: Trace edema
Skin: Multiple angiectasias on chest
Results
WBC 7.0 10^3/uL (4.8-10.8) 10/04/24 04:04
Hgb 7.9 g/dL (12.0-16.0) L 10/04/24 04:04
Hct 24.9 % (37.0-47.0) L 10/04/24 04:04
MCV 83.0 fL (81.0-99.0) 10/04/24 04:04
Plt Count 178 10^3/uL (130-400) 10/04/24 04:04
APTT Cancelled 10/02/24 11:10
Sodium 137 mmol/L (135-145) 10/04/24 04:04
Potassium 4.8 mmol/L (3.5-5.1) 10/04/24 04:04
Chloride 106 mmol/L (98-107) 10/04/24 04:04
Carbon Dioxide 23 mmol/L (22-30) 10/04/24 04:04
BUN 35 mg/dl (7-17) H 10/04/24 04:04
Creatinine 1.5 mg/dL (0.6-1.0) H 10/04/24 04:04
Calcium 9.4 mg/dl (8.4-10.2) 10/04/24 04:04
Total Bilirubin 0.3 mg/dl (0.2-1.3) 09/26/24 07:52
AST 17 U/L (14-36) 09/26/24 07:52
ALT 15 U/L (0-35) 09/26/24 07:52
Alkaline Phosphatase 44 U/L (38-126) 09/26/24 07:52
Hepatitis C Antibody Negative (Negative) 09/27/24 02:35
Diagnostic Image Results:
Prior GI Procedures:
EGD:
Colonoscopy:
Assessment / Plan
-
1. Anemia: Multifactorial, with minimally low iron percent saturation low normal ferritin, is not far off from her baseline, and states she has been noted to be anemic for more than the past year. There likely is some component of iron deficiency
and slow blood loss, in the setting of anticoagulation and not Plavix post new stents, though no signs of gross bleeding, and likely some component of anemia of chronic disease. Most common etiology of iron deficiency and slow GI blood loss would
be angiectasia, especially given her history of scleroderma. While underlying malignancy is not excluded it does seem much less likely given lack of symptoms, negative EGD last year and colonoscopy 3 years ago. She stated that given her experience
with breast cancer more than 20 years ago even if she did have a new malignancy she would not pursue treatment. This is a difficult clinical scenario as she is Religion and does not want blood transfusion. At this point would continue
supportive care, consider hematology evaluation to help maximize this, likely iron and possible Epogen. Given her multiple comorbidities, no signs of brisk active bleeding, low suspicion for malignancy and the fact that even if was diagnosed would
not seek treatment, will hold on endoscopic evaluation. Would reserve endoscopic evaluation only if had signs of significant active bleeding. There are no specific GI contraindications to continued anticoagulation and antiplatelet, again with
monitoring and supportive care.
We will sign off for now, please call back with any further questions.
-
-
Thank you for consultation and allowing me to participate in the patient's care. Please call the customer records division supervisor GI physician during the after hours with any questions or concerns.
[2024-10-04] MEDS: FARXIGA 10 MG PO (16:29)
--- NOTE | 2024-10-04 18:38 | PTCARENOTE ---
Pt with Hg of 7.9, stools heme negative X 2, pt reports history of hemorrhoids. Pt diuresing well after lasix, she is able to walk around entire CVICU and IVU with oxygen with some SOB which resolves within 2 minutes. Telemetry shows sinus rhythm
with LBBB.
[2024-10-04] MEDS: FLEXERIL 10 MG PO (21:04)
[2024-10-04] MEDS: NEURONTIN 300 MG PO (21:04)
[2024-10-04] MEDS: MELATONIN 3 MG PO (22:17)
[2024-10-04] MEDS: ATIVAN 0.5 MG PO (22:17)
--- NOTE | 2024-10-04 22:53 | PTCARENOTE ---
Patient received at change of shift resting in the bed. Right groin site JEANNE, ecchymotic but soft to palpation, pedal pulse palpable. The patient offers no complaints of pain. Reports some dyspnea on exertion when walking longer distances but states
she overall feels much better. Voiding clear yellow urine. Sinus rhythm with LBBB on telemetry. Oxygen saturation on 3L NC 97-100%. Plan of care discussed. Call benz within reach. Care ongoing.
[2024-10-05 03:18] VITALS: PULSE 80
[2024-10-05 03:41] VITALS: BP 95/56
[2024-10-05 03:51] VITALS: BMI 30.4
[2024-10-05 04:03] LABS: Hematocrit 25.9 % (37.0-47.0); Hemoglobin 8.1 g/dL (12.0-16.0); Mean Corp Hgb Conc. 31.3 g/dL (33.0-37.0); Mean Corpuscular Hgb 26.2 pg (27.0-31.0); Mean Corpuscular Volume 83.8 fL (81.0-99.0); Platelet Count 192 10^3/uL (130-400); Red Blood Cell Count 3.09 10^6/uL (4.20-5.40); White Blood Cell Count 7.2 10^3/uL (4.8-10.8)
[2024-10-05 04:20] LABS: Blood Urea Nitrogen 37 mg/dl (7-17); Calcium 9.6 mg/dl (8.4-10.2); Carbon Dioxide 27 mmol/L (22-30); Chloride 103 mmol/L (98-107); Estimated Creatinine Clearance 33 ml/min; Glucose 97 mg/dl (70-99); Potassium 4.4 mmol/L (3.5-5.1); Sodium 138 mmol/L (135-145); eGFR 33.84
[2024-10-05] MEDS: SYNTHROID 75 MCG PO (06:16)
[2024-10-05] MEDS: SPIRIVA RESPIMAT 2.5 MCG 2 PUFF INH (07:27)
[2024-10-05] MEDS: SYMBICORT 160/4.5 MCG INHALER 2 PUFF INH (07:28)
[2024-10-05 07:58] VITALS: BP 92/47
[2024-10-05] MEDS: MUCINEX 600 MG PO (08:18)
[2024-10-05] MEDS: CARAFATE SUSPENSION 1 GM PO (08:18)
[2024-10-05] MEDS: DELTASONE 7.5 MG PO (08:18)
[2024-10-05] MEDS: FARXIGA 10 MG PO (08:18)
[2024-10-05] MEDS: LEXAPRO 5 MG PO (08:19)
[2024-10-05] MEDS: SINGULAIR 10 MG PO (08:19)
[2024-10-05] MEDS: LEXAPRO 20 MG PO (08:19)
[2024-10-05] MEDS: PROTONIX 40 MG PO (08:20)
[2024-10-05] MEDS: PLAVIX 75 MG PO (08:20)
[2024-10-05] MEDS: COREG 3.125 MG PO (08:20)
[2024-10-05] MEDS: PLAQUENIL 400 MG PO (08:20)
[2024-10-05] MEDS: ZYRTEC 10 MG PO (08:21)
[2024-10-05] MEDS: COLCHICINE 0.6 MG PO (08:21)
[2024-10-05] MEDS: LASIX 40 MG IV (08:21)
[2024-10-05] MEDS: ELIQUIS 5 MG PO (08:21)
--- NOTE | 2024-10-05 09:53 | W.PN.CARDCBS ---
Today's Communication / Plan
-
coreg 3.125mg BID
plavix 75mg daily
colchicine 0.6mg daily
eliquis 5mg BID
farxiga 10mg daily
lasix 40mg BID
hold OP valsartan and spironolactone for now given RI and hypotension
CBC/BMP/proBNP in 1 week
OP follow up with Dr. Bacon's office arranged
cardiac rehab
Impression / Plan
-
Primary Sap Gatherer: Dr. Rodger Bacon
Assessment:
Multivessel CAD
Status post LAD PCI 2004 at [facility]
s/p 2 overlapping 2.5 x 30 mm and 2.25 x 30 mm Medtronic Bur[place] drug-eluting stents 09/29/2024
ICM, EF 20 to 25%
Acute on chronic HFrEF with elevated filling pressures on catheterization 09/29/2024
CKD3B
HTN
HLD
COPD on chronic 3L supp O2
History of PE
Chronic OAC with eliquis
History of statin intolerance (paralysis)
Raynaud's syndrome
Scleroderma on chronic steroids
Neuropathy
Hypothyroidism
History of breast cancer s/p mastectomy, chemo, radiation
Obesity
LOUISE on CPAP
Chronic anemia
ECHO 09/26/24: EF 20-25%, global hypokinesis, mod cLVH, stage 1 diastolic dysfunction, mild , small to mod pericardial effusion to LV, ascending aorta dilatation measuring 4.1cm
Cardiac cath 09/2024: LM: 20% stenosis. LAD: Proximal to mid heavily calcified with 50% followed by 95% stenosis at second diagonal s/p 2 overlapping 2.5 x 30 mm and 2.25 x 30 mm Medtronic [place] drug-eluting stents (09/29/2024). First diagonal ostial
70% stenosis. Left circumflex: Ostial 70% stenosis. RCA: Mid 80% stenosis.
Hemodynamics:RA (m) : 17, RV (s/d,m) : 52/11, 14, PA (s/d, m) : 52/26, 37, PCWP (m) : 20, PA saturation: 61.5% on room air, AO saturation: 88.9% on room air, RA saturation: 57.2% on room air, Cardiac Output : 5.34 L/min by Zehra calculation, Cardiac
Index : 2.77 L/min/m-2 by Zehra calculation, Systemic vascular resistance: 943 dsc^(-5), Pulmonary vascular resistance: 3.56 saucedo unit
Plan:
- She continues to improve and feeling well this AM. ambulatory around unit without difficulty
- s/p proximal to mid LAD overlapping 2.5 x 30 mm and 2.25 x 30 mm Medtronic [place] drug-eluting stents 09/29/2024. s/p 3 overlapping Medtronic Burak REBECA to prox to mid RCA 10/02/24.
- LVEDP post cath 10/02 was 20. weight down 4 pounds overnight if accurate. Creatinine stable at 1.6. Will transition to p.o. Lasix. was on torsemide 10mg daily prior to admission, consider 40mg po BID upon DC and can be reassessed as OP
- continue baseline 3 L nasal cannula, continue to wean as able
- CHF education
- remains in SR with less PVCs on review of tele overnight. she has chronic LBBB.
- of note she has history of intolerance to aspirin with symptoms of severe abd pain, diarrhea, and cold sweats. continue eliquis, plavix
- R groin site stable with mild ecchymoses, soft, NTTP. hgb up slightly to 8.1 overnight. she is Qu[employer] so will not accept blood transfusions.
- ECHO 09/26 remains with EF 20-25%. will need repeat echo as OP to reeval EF post revascularization
- Continue GDMT of ischemic cardiomyopathy with Coreg. Outpatient valsartan and Aldactone presently on hold given CKD and hypotension, consider resuming as OP as BP tolerates. Pallavi added this admission
- CBC/BMP/proBNP in 1 week
- Continue colchicine given chronic pericarditis
- Cardiac rehab
- OP follow up with Ángela HOGAN, Dr. Bacon arranged
- she had OP derm biopsy/removal with sutures over a week ago as OP. she discussed with OP derm 10/04 who stated ok to remove sutures today. 2 sutures removed at bedside without issue. incision appears to be well healing. continue vaseline/dressings
as per derm instructions
-d/w nursing
-d/w hospitalist via TT
ADMISSION DATA:
- Patient had hospitalization at [facility] in mid August 2024 with acute decompensated heart failure and found to have EF of 20 to 25% by echo. Then underwent subsequent pharmacologic nuclear stress test, also abnormal with post-rest EF of 17%. She
underwent left and right heart cath on 09/26/2024 and was found to have multivessel coronary disease of LAD, OM1, RCA. she was felt to be high risk for CABG given comorbidities. Patient has baseline CKD 3B.
Progress Note - Sap Gatherer
Subjective
Date of Service: October 05, 2024
feeling well. eager for DC. no CP. breathing improving. also reports improvement in LE neuropathy
Objective
Labs:
10/05/24 03:48
10/05/24 03:48
Labs
Hgb 8.1 g/dL (12.0-16.0) L 10/05/24 03:48
Hct 25.9 % (37.0-47.0) L 10/05/24 03:48
Plt Count 192 10^3/uL (130-400) 10/05/24 03:48
APTT Cancelled 10/02/24 11:10
Sodium 138 mmol/L (135-145) 10/05/24 03:48
Potassium 4.4 mmol/L (3.5-5.1) 10/05/24 03:48
BUN 37 mg/dl (7-17) H 10/05/24 03:48
Creatinine 1.6 mg/dL (0.6-1.0) H 10/05/24 03:48
Glucose 97 mg/dl (70-99) 10/05/24 03:48
Vital Signs and I&O:
Vital Signs
Temp Pulse Resp BP Pulse Ox
97.8 F 80 20 92/47 99
10/05/24 07:57 10/05/24 08:20 10/05/24 07:57 10/05/24 08:20 10/05/24 08:31
Vital Signs
Temp Pulse Resp BP Pulse Ox
97.8 F 80 20 92/47 99
10/05/24 07:57 10/05/24 08:20 10/05/24 07:57 10/05/24 08:20 10/05/24 08:31
Intake & Output
10/03/24 10/04/24 10/05/24 10/06/24
07:59 07:59 07:59 07:59
Intake Total 630 / 630 630 / 630 240 / 240 300 / 300
Output Total 1350 / 1350 2700 / 2700 2950 / 2950 400 / 400
Balance -720 / -720 -2070 / -2070 -2710 / -2710 -100 / -100
Physical Exam
Physical Exam
GEN: No distress, awake, alert, oriented x3. on supp O2
HEENT: supple, anicteric, mmm, eomi
LUNGS: CTA B/L, no wheezes
CV: Reg, S1/S2, no murmur
ABD: soft, BS+, NT/ND
EXT: No cyanosis, clubbing, edema
NEURO: Gross non-focal
SKIN: Warm, pink, dry. No rash. R groin site c/d/i, mild surrounding ecchymoses, NTTP
--- NOTE | 2024-10-05 11:00 | W.PN.NEPH.PH ---
Today's Communication / Plan
-
dc
Assessment/Plan
-
74-year-old female with extensive past medical history including CAD with prior stents, CKD, COPD, breast cancer s/p mastectomy with chemo/radiation, was recently admitted to [facility] for pericarditis and pericardial effusion which was not
drained (on colchicine). Patient was referred for further cardiac workup at [facility] due to SOB/SALINAS and presents 09/27/23 for diagnostic cardiac catheterization. Severe LAD and RCA disease in setting of low EF 25%. she uses 2 L of oxygen at baseline due
to her history of severe COPD the patient has no history of smoke
Renal consult for PATRIA prevention in the setting of elevated creatinine. Uncertain to the patient's baseline
Impression.
KELSEY with uncertain baseline
Coronary artery disease requiring cardiac catheterization stenting LAD 09/29, RCA 10/02
Severe COPD on 2 L oxygen.
Pericarditis/pericardial effusion, chronic
Scleroderma unknown if limited or systemic
Rheumatoid arthritis
Hypercalcemia
Heart failure reduced ejection fraction 25%
Hypotension
History of pulmonary embolism
History of breast cancer right, in remission
Plan.
follow BMP
po lasix 40mg BID
Hypercalcemia workup pending still
Pamidronate 30 mg 09/29
start SGLT2i
no ARB/spironolactone given hypotension
-
-
Date of Service: October 05, 2024
CC / HPI / ROS
-
Chief Complaint:
KELSEY
History of Present Illness:
KELSEY/Cr 1.6 stable
s/p Aredia 09/29, Calcium normal
hgb stable 8.1
BP still low
responded to lasix for high filling pressures/CHF, UOP > 2L
on 3L O2 chronically (at home)
Review of Systems:
no CP/SOB
Labs
-
Labs:
WBC 7.2 10^3/uL (4.8-10.8) 10/05/24 03:48
RBC 3.09 10^6/uL (4.20-5.40) L 10/05/24 03:48
Hgb 8.1 g/dL (12.0-16.0) L 10/05/24 03:48
Hct 25.9 % (37.0-47.0) L 10/05/24 03:48
Plt Count 192 10^3/uL (130-400) 10/05/24 03:48
Sodium 138 mmol/L (135-145) 10/05/24 03:48
Potassium 4.4 mmol/L (3.5-5.1) 10/05/24 03:48
Chloride 103 mmol/L (98-107) 10/05/24 03:48
Carbon Dioxide 27 mmol/L (22-30) 10/05/24 03:48
BUN 37 mg/dl (7-17) H 10/05/24 03:48
Creatinine 1.6 mg/dL (0.6-1.0) H 10/05/24 03:48
eGFR 33.84 10/05/24 03:48
Glucose 97 mg/dl (70-99) 10/05/24 03:48
Calcium 9.6 mg/dl (8.4-10.2) 10/05/24 03:48
Phosphorus 3.4 mg/dl (2.5-4.5) 09/29/24 13:50
Albumin 4.5 g/dl (3.5-5.0) 09/26/24 07:52
Physical Exam
-
Vital Signs:
Vital Signs
Temp Pulse Resp BP Pulse Ox
97.8 F 80 20 92/47 99
10/05/24 07:57 10/05/24 08:20 10/05/24 07:57 10/05/24 08:20 10/05/24 08:31
Cardiovascular:: Regular rate and rhythm
Respiratory:: Bilateral: Coarse
Lung Excursion:: Normal
Abdomen:: Nontender and Soft
Bowel Sounds:: Normal
Extremity Edema:: None: Bilateral:
[2024-10-05 11:26] VITALS: BP 90/38
[2024-10-05 12:22] LABS: IgA 136 mg/dL (68-408); IgG 468 mg/dL (768-1632); IgM 103 mg/dL (35-263)
[2024-10-05] MEDS: CARAFATE SUSPENSION PO (13:47)
--- NOTE | 2024-10-05 13:53 | PTCARENOTE ---
Pt seen by Dr.Reddy sergio Alamo, DORINA. Telemetry and IV device removed. Discharge instructions reviewed with pt regarding medications and their possible side effects, wound care, activity guidelines, CHF guidelines, reporting cares and concerns
and follow up appt's. Excellent understanding verbalized. Materials faxed to [facility]. Pt escorted out via wheelchair wearing her home oxygen and was discharged to home.
[2024-10-05 14:02] LABS: PTH Related Peptide LC-MS/MS 2.8 pmol/L (0.0-3.4)
--- NOTE | 2024-10-05 14:15 | W.DCSUMMARY ---
Discharge Summary
Discharge Data
Date of Admission: 09/26/24
Date of Discharge: 10/05/24
-
Pending Results: No
Hospital Course
Primary diagnosis:
Unstable angina status post staged left heart cath with PCI and coronary stenting to the LAD and RCA
Coronary artery disease
Acute on chronic heart failure with reduced EF of 20 to 25%
Acute kidney injury
Hypercalcemia
Heme positive stools
Chronic anemia
Secondary diagnosis:
Scleroderma
Raynaud's phenomenon
COPD
Chronic hypoxic respiratory insufficiency on 3 L
History of pulmonary embolism
History of pericarditis on colchicine
Neuropathy
Hypothyroidism
Mood disorder
Hospital course:
Patient with a history of CAD presented with chest pain to [facility] , was noted to be unstable angina so was transferred to [facility] for further treatments. She had a coronary angiogram which showed multivessel disease on the
CT surgery recommended nonoperative approach. She had a staged PCI with REBECA to LAD and then later REBECA to RCA on a different date after optimizing the creatinine. She had elevated end-diastolic pressures on the cath. She is allergic to aspirin.
Plavix was introduced. Show significant elevated cholesterol but allergic to statins. She was advised to follow with candy dipper hand as an outpatient to explore PCSK 9 inhibitors.
Her echocardiogram showed EF of 20 to 25%. She was initially initiated on Lasix but was not kept on hold because of KELSEY. Spironolactone she normally uses was also kept on hold because of hyperkalemia but was reintroduced at the time of discharge.
Because of low blood pressures ARB/JOSSELYN inhibitor's could not be introduced. She was kept on beta-jas and Farxiga was introduced on this admission for GDMT treatments. Her weight went down from 186 pounds to 182 pounds on the day of discharge.
Her diuretics was switched to Lasix 40 mg twice daily and advised a BMP in a week. Creatinine was 1.6 on the day of discharge.
She walked in with a creatinine of 1.7. Peaked to 1.8. Nephrology were involved they felt possibly KELSEY with uncertain baseline. Plan is to continue to follow creatinine as an outpatient.
There was hypercalcemia noted with a calcium level of 11.0 and got pamidronate 30 mg with with improvement of calcium to 9.6. Hypercalcemia workup was requested by nephrology and was still pending at the time of discharge.
She has a normocytic anemia with hemoglobin as low 7.9. She was heme positive. GI evaluated the patient. No obvious acute bleeding. Her hemoglobin remained stable. Iron studies does not suggest iron deficiency. She has a history of anemia of
chronic disease apparently. She apparently did an EGD last year and colonoscopy 3 years ago making underlying malignancy less likely but could not be excluded. She stated that given the experience with the breast cancer 20 years ago even if she
did have new malignancy she would not pursue treatment at this point. Difficult scenario with Orthodox and does not want blood transfusions. At this point GI recommended continue supportive care and consider hematology follow-up for
outpatient EPO injections and follow-up of anemia. They wanted to hold on endoscopic eval as there was no evidence of active bleeding. There were okay to continue anticoagulation and antiplatelets for now.
Patient today without chest pain or shortness of breath. Stable oxygenation at 3 L. Blood pressure 90/38. Denies any dizziness. Chest was clear. Abdomen was soft. Tolerating diet.
Cleared by cardiology for discharge today.
Consultants on board:
Cardiology-Qi Martinez
GI-Dominguez Maradiaga
Nephrology-Ja Berry
Discharge Plan
-
Patient Disposition: Home with Home Care
Discharge Diagnosis/Procedures: Angioplasty and stent x2 to Left Anterior Descending artery (09/29)
Angioplasty and stent to Right Coronary artery (10/02)
Acute heart failure
Diet: 2 Gram Sodium and Restrict fluids to 64 oz
Activity: As tolerated
Blood Work: BMP/proBNP in 1 week; CBC blood work in one week - arrange through your PCP
Other Services: Cardiac Rehab
Specialty Instructions: Weigh Daily- Call MD for wt gain/loss 3 lbs overnight/5 lbs in 1 week
Instructions: *PCP/Other Movers Heart Failure Instructions
Stand Alone Forms: DC Instructions- Cath/EP Lab
Referrals:
Jarad, Visiting Nurse [Other]
Rodger Bacon DO [Non-Admitting Privileges, Cardiology] - 10/19/24 10:00 am
Referral Note: Appointment with Dr. Bacon's OR SCRUB TECH. Please call with questions.
Risa Tabor DO [Family Provider, Family Practice] - in less than 1 week
Additional Discharge Medication Instructions: STOP torsemide as you are now on furosemide (lasix)
Prescriptions:
New
dapagliflozin propanediol 10 mg Tablet
10 mg PO DAILY Qty: 30 0RF
furosemide 40 mg Tablet
40 mg PO BID AT 0800,1600 Qty: 60 0RF
Rx Instructions:
Reevaluate the dose need when you see cardiology in office
Continued
cyclobenzaprine 10 mg Tablet
10 mg PO HS
vitamin B complex Tablet Extended Release
1 tab PO DAILY
clopidogrel [Plavix] 75 mg Tablet
75 mg PO DAILY
levothyroxine 75 mcg Tablet
75 mcg PO DAILY
pantoprazole 40 mg Tablet,Delayed Release (Dr/Ec)
40 mg PO DAILY
nitroglycerin 0.4 mg Tablet, Sublingual
0.4 mg SUBLINGUAL Q5-15M PRN (Reason: Chest pain)
gabapentin 300 mg Capsule
300 mg PO HS
lorazepam 1 mg Tablet
0.5 mg PO HS PRN (Reason: anxiety)
albuterol sulfate 90 mcg/actuation Hfa Aerosol Inhaler
2 puff INHALATION Q6H PRN (Reason: COPD)
fluticasone propionate 50 mcg/actuation [place],Suspension
2 spray INTRANASAL BID
escitalopram oxalate 20 mg Tablet
20 mg PO DAILY
escitalopram oxalate 5 mg Tablet
5 mg PO DAILY
dexlansoprazole 60 mg Capsule,Biphase Delayed Releas
60 mg PO DAILY
Eliquis 5 mg Tablet
5 mg PO BID
Breztri Aerosphere 160-9-4.8 mcg/actuation Hfa Aerosol Inhaler
2 inh INHALATION BID
cetirizine 10 mg Tablet
10 mg PO DAILY
sucralfate 100 mg/mL Suspension
10 ml PO AC
spironolactone 25 mg Tablet
25 mg PO DAILY
carvedilol 3.125 mg Tablet
3.125 mg PO BID
montelukast 10 mg Tablet
10 mg PO DAILY
azelastine 137 mcg (0.1 %) [place],Non-Aerosol
1 spray INTRANASAL BID
colchicine 0.6 mg Tablet
0.6 mg PO DAILY
Centrum Women 18-400 mg-mcg Tablet
1 tab PO DAILY
guaifenesin 600 mg Tablet Extended Release 12hr
600 mg PO BID
hydroxychloroquine 400 mg Tablet
400 mg PO DAILY
prednisone 7.5 mg tablet
7.5 mg PO DAILY
Discontinued
valsartan 160 mg Tablet
80 mg PO DAILY
torsemide 10 mg Tablet
10 mg PO DAILY
Discharge Orders:
Discharge Patient (As Directed); Ordered 10/05/24
Ordered By: Lino Solitario
Care Plan Goals
Care Plan Goals:
Problem: Readiness for enhanced knowledge related to diagnosis and treatment plan
Goal: Understand your diagnosis and treatment plan needs, including medications if applicable.
Instructions: Know your diagnosis, underlying causes and treatment plan options, including medications if applicable. Consult with your health care team to learn about your diagnosis and treatment plan, including medications if applicable.
Discharge Date and Time
Discharge Date/Time: 10/05/24 13:30
Print Language: BERMUDIAN
[2024-10-06 13:46] LABS: Albumin 3.49 g/dL (3.75-5.01); Alpha 1 Globulin 0.26 g/dL (0.19-0.46); Alpha 2 Globulin 0.78 g/dL (0.48-1.05); SPEP IFE Reflex IFE Done; Total Protein-Electrophoresis 5.6 g/dL (6.3-8.2)
== END 2024-10-05 13:30 | disposition home health service (06) | DRG 321 ==
LOC: IVU 13:28
PROVIDERS: Internal Medicine Cardiovascular Disease; Internal Medicine Interventional Cardiology; Nuclear Medicine Nuclear Cardiology; Nurse Practitioner; Nurse Practitioner Family; Physician Assistant; Specialist; ADMITTING PHYSICIAN Hospitalist; ATTENDING PHYSICIAN Internal Medicine; CONSULT PHYSICIAN Internal Medicine Gastroenterology; CONSULT PHYSICIAN Internal Medicine Nephrology; CONSULT PHYSICIAN Thoracic Surgery (Cardiothoracic Vascular Surgery); FAMILY PHYSICIAN Family Medicine
PROC: 5A09357 Assistance with Respiratory Ventilation, Less than 24 Consecutive Hours, Continuous Positive Airway Pressure (ICD-10-PCS; 2024-09-26)
PROC: 4A033BC Measurement of Arterial Pressure, Coronary, Percutaneous Approach (ICD-10-PCS; 2024-09-26)
PROC: 4A023N8 Measurement of Cardiac Sampling and Pressure, Bilateral, Percutaneous Approach (ICD-10-PCS; 2024-09-26)
PROC: B2111ZZ Fluoroscopy of Multiple Coronary Arteries using Low Osmolar Contrast (ICD-10-PCS; 2024-09-26)
PROC: B240ZZ3 Ultrasonography of Single Coronary Artery, Intravascular (ICD-10-PCS; 2024-09-29)
PROC: 027035Z Dilation of Coronary Artery, One Artery with Two Drug-eluting Intraluminal Devices, Percutaneous Approach (ICD-10-PCS; 2024-09-29)
PROC: 4A023N7 Measurement of Cardiac Sampling and Pressure, Left Heart, Percutaneous Approach (ICD-10-PCS; 2024-09-29)
PROC: 027036Z Dilation of Coronary Artery, One Artery with Three Drug-eluting Intraluminal Devices, Percutaneous Approach (ICD-10-PCS; 2024-10-02)
DX: I25.110 Atherosclerotic heart disease of native coronary artery with unstable angina pectoris (principal); I50.23 Acute on chronic systolic (congestive) heart failure; I13.0 Hypertensive heart and chronic kidney disease with heart failure and stage 1 through stage 4 chronic kidney disease, or unspecified chronic kidney disease; I31.39 Other pericardial effusion (noninflammatory); J96.11 Chronic respiratory failure with hypoxia; D68.9 Coagulation defect, unspecified; N17.9 Acute kidney failure, unspecified; J44.89 Other specified chronic obstructive pulmonary disease; Z99.81 Dependence on supplemental oxygen; N18.32 Chronic kidney disease, stage 3b; R19.5 Other fecal abnormalities; E83.52 Hypercalcemia; E87.5 Hyperkalemia; I95.9 Hypotension, unspecified; M34.9 Systemic sclerosis, unspecified; I73.00 Raynaud's syndrome without gangrene; E03.9 Hypothyroidism, unspecified; F32.A Depression, unspecified; E66.9 Obesity, unspecified; G47.33 Obstructive sleep apnea (adult) (pediatric); G62.9 Polyneuropathy, unspecified; D63.1 Anemia in chronic kidney disease; E78.00 Pure hypercholesterolemia, unspecified; I25.5 Ischemic cardiomyopathy; Z86.711 Personal history of pulmonary embolism; Z95.5 Presence of coronary angioplasty implant and graft; Z88.6 Allergy status to analgesic agent; Z88.8 Allergy status to other drugs, medicaments and biological substances; Z85.3 Personal history of malignant neoplasm of breast; Z92.21 Personal history of antineoplastic chemotherapy; Z87.01 Personal history of pneumonia (recurrent); Z68.30 Body mass index [BMI] 30.0-30.9, adult; Z79.01 Long term (current) use of anticoagulants; Z79.52 Long term (current) use of systemic steroids; Z79.02 Long term (current) use of antithrombotics/antiplatelets
CPT/HCPCS: 80048; 80053; 80061; 81050; 82164; 82306; 82652; 82728; 82784; 83519; 83520; 83540; 83550; 83735; 83970; 84100; 84155; 84156; 84165; 85027; 85347; 85730; 86334; 86335; 86803; 92978; 93005; 93306; 93458; 93460; 93799; 94640; 94660; 97116; 97162; 99152; 99153; C1725; C1753; C1760; C1769; C1874; C1894; C9600; J2430; Q9950; Q9967

== ENCOUNTER 2024-10-25 01:10 | Inpatient (IN) | payer OTHER, SELFPAY ==
[2024-10-25] VITALS (15 sets, daily range): BP systolic 82–111; BP diastolic 42–67; PULSE 86; BMI 29.4
--- NOTE | 2024-10-25 01:58 | PTCARENOTE ---
Direct admit from [facility] into 2252. Pt is AAOx3 SR on the monitor VSS denies cp. arrived on Heparin gtt. discussed POC with pt. Call benz within reach.
--- NOTE | 2024-10-25 02:10 | HPS.HSE ---
Family Physician
-
Family Physician: Risa Tabor DO
Chief Complaint
-
Chest Pain
History of Present Illness
Patient is a 74y F with PMH significant for ASCVD, CHF, COPD, CKD and scleroderma who presents to as transfer from [facility] where she was hospitalized for NSTEMI. Patient was recently hospitalized at from 09/26 - 10/05 for ASCVD and CHF. She
underwent staged PCI during that admission with PTCA and stent placement to the LAD and RCA. Patient states that she was feeling well following that admission until this past Wednesday evening when she developed severe substernal chest pain with
radiation into the R arm. Patient called 911 and was taken to [facility] where she was hospitalized. Initial troponin (T) at that facility was 109 which peaked at 1500 and this AM was 1176.
Patient was placed on IV heparin infusion. Her diuretic regimen was held in preparation for possible catheterization.
Echo was done showing LVEF = 20%. Consistent with recent cath measurements.
Patient requested transfer to [facility] where she has had multiple catheterizations in the past (including in the past month).
Patient states that her pain Wednesday evening lasted several hours. She has had no recurrent pain, dyspnea or other symptoms since that time.
Patient seen and examined in the IVU after arrival to .
She is resting comfortably and is in no distress. She has no complaints at present.
Medical History
Past Medical History
Past Medical History: Reports Other
Additional Past Medical History:
Coronary artery disease
Chronic kidney disease stage 3b
Scleroderma
Raynaud's phenomenon
COPD
Chronic hypoxic respiratory failure
Asthma
History of pulmonary embolism
Chronic coagulopathy with Eliquis
Chronic HFrEF
Pericarditis
Pericardial effusion
History of pleural effusion status post thoracentesis
Neuropathy
Hypothyroidism
Mood disorder
Obesity
Breast cancer
LOUISE on CPAP
Past Surgical History: Reports Other
Additional Past Surgical History:
Breast cancer status post mastectomy and chemoradiation
PTCA with Stents
Social History
Tobacco: Non-smoker
Alcohol: Occasional (Very rare.)
Family History
Family History: Not pertinent
Allergies / Home Medications
Allergies reflects when Allergies were last updated in appsplit.
Home Medications with original date entered in appsplit
Allergy/Medication List:
Allergies
Allergy/AdvReac Type Severity Reaction Status Date / Time
adhesive Allergy Blisters Verified 09/26/24 11:33
aspirin Allergy Nausea / Verified 09/26/24 16:15
Vomiting
Beta-Blockers Allergy depression Verified 09/26/24 11:33
(Beta-Adrenergic Bloc
colesevelam (From WelChol) Allergy Nausea / Verified 09/26/24 11:33
Vomiting
ezetimibe (From Zetia) Allergy Muscle pain Verified 09/26/24 11:33
fish oil Allergy Unknown Verified 09/26/24 11:33
Sfyrrok-BSD-MoK Reductase Allergy paralysis Verified 09/26/24 11:33
Inhibitor
Home Medications
albuterol sulfate 90 mcg/actuation aerosol inhaler 2 puff inhalation Q6H PRN COPD 09/26/24
apixaban 5 mg tablet (Eliquis) 5 mg PO BID 09/26/24
azelastine 137 mcg (0.1 %) nasal spray 1 spray intranasal BID 09/26/24
budesonide 160 mcg-glycopyr 9 mcg-formot 4.8 mcg/actuation HFA inhaler (Breztri Aerosphere) 2 inh inhalation BID 09/26/24
carvedilol 3.125 mg tablet 3.125 mg PO BID 09/26/24
cetirizine 10 mg tablet 10 mg PO DAILY 09/26/24
clopidogrel 75 mg tablet (Plavix) 75 mg PO DAILY 09/26/24
colchicine 0.6 mg tablet 0.6 mg PO DAILY 09/26/24
cyclobenzaprine 10 mg tablet 10 mg PO HS 09/26/24
dexlansoprazole 60 mg capsule,biphase delayed release 60 mg PO DAILY 09/26/24
escitalopram oxalate 20 mg tablet 20 mg PO DAILY 09/26/24
escitalopram oxalate 5 mg tablet 5 mg PO DAILY 09/26/24
fluticasone propionate 50 mcg/actuation nasal spray,suspension 2 spray intranasal BID 09/26/24
gabapentin 300 mg capsule 300 mg PO HS 09/26/24
guaifenesin 600 mg tablet, extended release 12 hr 600 mg PO BID 09/26/24
hydroxychloroquine 400 mg tablet 400 mg PO DAILY 09/26/24
levothyroxine 75 mcg tablet 75 mcg PO DAILY 09/26/24
lorazepam 1 mg tablet 0.5 mg PO HS PRN anxiety 09/26/24
montelukast 10 mg tablet 10 mg PO DAILY 09/26/24
multivitamin-ferrous fumarate-folic acid 18 mg-400 mcg tablet (Centrum Women) 1 tab PO DAILY 09/26/24
nitroglycerin 0.4 mg sublingual tablet 0.4 mg sublingual Q5-15M PRN Chest pain 09/26/24
pantoprazole 40 mg tablet,delayed release 40 mg PO DAILY 09/26/24
spironolactone 25 mg tablet 25 mg PO DAILY 09/26/24
sucralfate 100 mg/mL oral suspension 10 ml PO AC 09/26/24
vitamin B complex 1 tab PO DAILY 09/26/24
prednisone 7.5 mg PO DAILY 09/28/24
dapagliflozin propanediol 10 mg tablet 10 mg PO DAILY #30 tabs 10/05/24
furosemide 40 mg tablet 40 mg PO BID AT 0800,1600 #60 tabs 10/05/24
Review of Systems
-
History Source: Patient
A 12 point ROS was completed and negative except as noted: Yes
Constitutional: Reports Fatigue; Denies Fever, Weight Gain, Weight Loss or Chills
Respiratory: Denies Cough or Trouble Breathing
Cardiac: Denies Chest Pain or Palpitations
Abdomen/GI: Denies Abdominal Pain, Nausea, Vomiting or Diarrhea
: Denies Dysuria, Frequency or Flank Pain
Musculoskeletal: Denies Joint Pain or Edema
Neurological: Denies Dizzy or Headache
Psych: Denies Depression or Anxiety
Physical Exam
Vital Signs
Vital Signs
Temp Pulse Resp BP Pulse Ox
98.3 F 90 16 111/59 94
10/25/24 01:56 10/25/24 01:56 10/25/24 01:56 10/25/24 01:17 10/25/24 01:56
Physical Exam
General: Other (74y F in no distress.)
HEENT: Moist mucous membranes and PERRLA
Respiratory: Clear; No Wheezes, Rales or Rhonchi
Cardiac: S1/S2 and Regular Rhythm; No Murmur
GI: Soft, Non Tender, Non Distended and Normal Bowel Sounds
Musculoskeletal: No Clubbing, No Cyanosis and No Edema
Neuro: AO x 3
Impression/Plan
-
A/P: Patient is a 74y F with PMH significant for ASCVD, CHF and COPD with recent PTCA / stents done here at who presents in transfer from [facility] where she originally presented on 10/22 with NSTEMI.
NSTEMI
ASCVD
- Admit for further evaluation and treatment.
- Will continue IV heparin overnight - though it appears that troponin has peaked and patient is now pain-free.
- Repeat troponin in the AM.
- Continue ASA, carvedilol, etc.
- Patient is unfortunately intolerant of statins. PCSK-9 inhibitors have been discussed / are being considered.
- Cardiology evaluation in the AM for additional recommendations.
- Continue Imdur that was added at [facility] and follow for any recurrent chest discomfort.
Chronic HFrEF
- Stable. No evidence of acute volume overload.
- Lasix and Farxiga have been on hold at [facility] since Wednesday.
- Continue to hold Lasix for now. Resume Farxiga.
- Follow I/Os, daily weights, etc and adjust regimen as needed.
Asthma / COPD
Chronic Hypoxemic Respiratory Failure
- On 3 lpm of O2 at home chronically.
- Stable at present without wheezing, cough, etc.
- Continue usual inhaled medications regimen. Albuterol PRN.
CKD III
- Stable. Renal function has remained relatively stable since last admission.
- 1.63 this AM at [facility].
- Follow for changes.
Iron Deficiency Anemia
- Stable. Hgb increased from prior hospitalization here (now 9.3).
- TSat at [facility] was markedly low at 4%.
- Increased current iron to BID. Consider IV replacement.
- Note that patient is Spiritism and has stated that she would decline blood transfusion.
Scleroderma
Raynaud's
- Stable. No joint pains or other acute symptoms.
- Continue usual prednisone / Plaquenil doses without changes.
GERD
Pill Dysphagia
- Stable. Continua PPI (one daily - on Protonix and Dexilant per home list).
- Continue Carafate.
- Patient reports difficulty swallowing - but reportedly only with ASA (?).
- Follow for any changes in symptoms.
Hypothyroidism
- Stable. Continue current T4 replacement.
Depression
- Stable. Continue Lexapro.
DVT Prophylaxis
History of PE
- Chronically on Eliquis. On hold acutely while on IV heparin infusion.
Code Status: Full
[2024-10-25] MEDS: HEPARIN 25000 UNITS/250 ML IV (02:32)
[2024-10-25 03:19] LABS: Hematocrit 27.2 % (37.0-47.0); Hemoglobin 8.5 g/dL (12.0-16.0); Mean Corp Hgb Conc. 31.3 g/dL (33.0-37.0); Mean Corpuscular Volume 80.7 fL (81.0-99.0); Platelet Count 291 10^3/uL (130-400); Red Cell Dist. Width 15.8 % (11.5-14.5)
[2024-10-25 03:32] LABS: APTT 34.6 Sec (23.4-35.0)
[2024-10-25 03:40] LABS: Blood Urea Nitrogen 41 mg/dl (7-17); Calcium 10.1 mg/dl (8.4-10.2); Carbon Dioxide 25 mmol/L (22-30); Chloride 106 mmol/L (98-107); Estimated Creatinine Clearance 35 ml/min; Glucose 100 mg/dl (70-99); Potassium 4.9 mmol/L (3.5-5.1); Sodium 138 mmol/L (135-145); eGFR 33.84
[2024-10-25 04:14] LABS: Troponin I 9.430 ng/ml
[2024-10-25] MEDS: SYNTHROID 75 MCG PO (06:17)
[2024-10-25 07:32] LABS: Glycohemoglobin (HgbA1c) 5.8 % (4.0-5.6)
--- NOTE | 2024-10-25 08:00 | CON.CAR ---
Addendum entered and electronically signed by Modesto Friedman MD 10/25/24 09:50:
Attending addendum:
Primary Stitch Bonding Machine Tender: Dr. Rodger Bacon
This is a very complex 74 y/o female who was received in transfer from [facility] with a NSTEMI. Her history is complicated. She was admitted to 09/26/24 for coronary angiography after a brief hospital visit at [facility]. She was discharged
and referred to for coronary angiography and found to have multivessel coronary artery disease. She was seen by CT surgery and not felt to be a great surgical candidate. She returned to the catheterization laboratory and underwent stenting of
the proximal to mid LAD with overlapping 2.5 x 30 mm and 2.25x30 mm Burak stents that were post dilated with a 3.0 mm NC balloon proximally and wtih a 2.75 mm NC balloon distally. She returned on 10/02/24 and underwent stenting of the proximal to mid
RCA with overlapping 4.0x12 mm, 4.0x38 m, and 4.0 x 8 mm Burak stents that were post dilated with a 4.0 mmm NC balloon with a nice angiographic result.
She was discharged on Plavix and Eliquis but developed recurring chest pain on the evening of 10/22/24 at about 8pm and presented to [facility] via 911 transfer for further evaluation. She continued to experience chest discomfort for about 3 hours
and ruled-in for a NSTEMI. She has been pain free since late evening on 10/22/24. She requested transfer to for coronary angiography.
Additional history included Raynaud's syndrome, scleroderma on chronic steroids, CKD 3b, and severe LV dysfunction which was new on the most recent echocardiogram compared to an echocardiogram that was done earlier this year where EF was estimated
45-50%.
Echocardiogram from 09/26/2024: LV: Severely reduced LV systolic function with global hypokinesis. EF 20-25%. Moderate concentric LVH. RV: Normal, LA: Dilated, RA: Normal, MV: Mild MR, AV: Thickened aortic valve with restricted leaflet mobility.
Mild . Mean gradient 5 mmHg. No AI. TV: Trace TR with estimated PAP 25-30 mmHg
GEN: AAO x 3. No acute distress. Nasal cannula is worn. She speaks in full sentences. No acute distress.
HEENT: NC/AT, sclera are anicteric, hearing and nares are normal
LUNGS: Clear to bases bilaterally. No wheezing or rales
CV: Regular rate and rhythm. Normal S1/S2. No S3, No S4. Murmur: Soft upper sternal border
ABD : Soft, NT, Bowel sounds are present.
EXT: No CCE
NEURO: No focal neurologic deficits
RECOMMENDATIONS:
-Continue to trend serial troponins
- Continue aspirin. Plavix has been held since her admission at [facility] on 10/23/2024. Continue IV heparin
- Echocardiogram limited study for LVEF
- We have requested PFTs and records from primary process specialist at [facility]
- Likely will proceed with repeat coronary angiography later today
Original Note:
Consultation
Consultation Request
Date/Time Consultation Performed: 10/25/24
Requesting Provider: Dr. Samuels
Performing Provider: Ofelia Alamo PA-C for Dr. Friedman
Reason for Consultation: NSTEMI
Medical History
-
Chief Complaint: CP
History of Present Illness:
Patient is a 74 yo F with recent admission to for cardiac cath which showed MV CAD 09/26. She was evaluated by CT surgery however was felt to be high risk and therefore underwent MV stenting. Underwent staged intervention with LAD PCI x2 on 09/29/24
and RCA PCI x3 10/02/24. She is allergic to aspirin so has been maintained on plavix, eliquis. EF was 20-25% by echo and is on coreg, farxiga. Her valsartan and aldactone were held due to KELSEY/CKD in setting of stenting and CHF. She is followed by
Jordi of [facility]. She reports since [place], she has been feeling well until Wednesday evening with development of severe chest pain with radiation to R arm while sitting in chair watching TV. She was initially taken to [facility] and was noted to be in
acute CHF with proBNP 11,000. She underwent echo which was relatively stable with EF 20%. Trop was elevated, peaked at 1500. Trop on arrival here was 9.4. She was transferred to [facility] overnight. Cardiology consulted for evaluation.
PMH:
Multivessel CAD
Status post LAD PCI 2004 at [facility]
s/p 2 overlapping 2.5 x 30 mm and 2.25 x 30 mm Medtronic [place] drug-eluting stents to LAD 09/29/2024
s/p 3 overlapping Medtronic Burak REBECA to prox to mid RCA 10/02/24
ICM, EF 20 to 25%
Chronic HFrEF
CKD3B
HTN
HLD
COPD on chronic 3L supp O2
History of PE
Chronic OAC with eliquis
History of statin intolerance (paralysis)
Raynaud's syndrome
Scleroderma on chronic steroids
Neuropathy
Hypothyroidism
History of breast cancer s/p mastectomy with reconstruction, chemo, radiation
Obesity
LOUISE on CPAP
Chronic anemia
Past Medical History
Past Medical History: Other (in HPI)
Social History
Tobacco: Non-Smoker
Alcohol: None
Living: Alone
Employment: Retired
Allergies / Home Medications
Allergy/AdvReac Type Severity Reaction Status Date / Time
adhesive Allergy Blisters Verified 09/26/24 11:33
aspirin Allergy Nausea / Verified 09/26/24 16:15
Vomiting
Beta-Blockers Allergy depression Verified 09/26/24 11:33
(Beta-Adrenergic Bloc
colesevelam (From WelChol) Allergy Nausea / Verified 09/26/24 11:33
Vomiting
ezetimibe (From Zetia) Allergy Muscle pain Verified 09/26/24 11:33
fish oil Allergy Unknown Verified 09/26/24 11:33
Vpsasgh-QZH-GoQ Reductase Allergy paralysis Verified 09/26/24 11:33
Inhibitor
�Medication �Instructions �Recorded �Confirmed �Type
albuterol sulfate 90 mcg/actuation 2 puff inhalation Q6H PRN COPD 09/26/24 10/25/24 History
aerosol inhaler
apixaban 5 mg tablet (Eliquis) 5 mg PO BID 09/26/24 10/25/24 History
azelastine 137 mcg (0.1 %) nasal 1 spray intranasal BID 09/26/24 10/25/24 History
spray
budesonide 160 mcg-glycopyr 9 2 inh inhalation BID 09/26/24 10/25/24 History
mcg-formot 4.8 mcg/actuation HFA
inhaler (Breztri RingRangphere)
carvedilol 3.125 mg tablet 3.125 mg PO BID 09/26/24 10/25/24 History
cetirizine 10 mg tablet 10 mg PO DAILY 09/26/24 10/25/24 History
clopidogrel 75 mg tablet (Plavix) 75 mg PO DAILY 09/26/24 10/25/24 History
colchicine 0.6 mg tablet 0.6 mg PO DAILY 09/26/24 10/25/24 History
cyclobenzaprine 10 mg tablet 10 mg PO HS 09/26/24 10/25/24 History
dexlansoprazole 60 mg 60 mg PO DAILY 09/26/24 10/25/24 History
capsule,biphase delayed release
escitalopram oxalate 20 mg tablet 20 mg PO DAILY 09/26/24 10/25/24 History
escitalopram oxalate 5 mg tablet 5 mg PO DAILY 09/26/24 10/25/24 History
fluticasone propionate 50 2 spray intranasal BID 09/26/24 10/25/24 History
mcg/actuation nasal
spray,suspension
gabapentin 300 mg capsule 300 mg PO HS 09/26/24 10/25/24 History
guaifenesin 600 mg tablet, 600 mg PO BID 09/26/24 10/25/24 History
extended release 12 hr
hydroxychloroquine 400 mg tablet 400 mg PO DAILY 09/26/24 10/25/24 History
levothyroxine 75 mcg tablet 75 mcg PO DAILY 09/26/24 10/25/24 History
lorazepam 1 mg tablet 0.5 mg PO HS PRN anxiety 09/26/24 10/25/24 History
montelukast 10 mg tablet 10 mg PO DAILY 09/26/24 10/25/24 History
multivitamin-ferrous 1 tab PO DAILY 09/26/24 10/25/24 History
fumarate-folic acid 18 mg-400 mcg
tablet (Centrum Women)
nitroglycerin 0.4 mg sublingual 0.4 mg sublingual Q5-15M PRN Chest 09/26/24 10/25/24 History
tablet pain
pantoprazole 40 mg tablet,delayed 40 mg PO DAILY 09/26/24 10/25/24 History
release
spironolactone 25 mg tablet 25 mg PO DAILY 09/26/24 10/25/24 History
sucralfate 100 mg/mL oral 10 ml PO AC 09/26/24 10/25/24 History
suspension
vitamin B complex 1 tab PO DAILY 09/26/24 10/25/24 History
prednisone 7.5 mg PO DAILY 09/28/24 10/25/24 History
dapagliflozin propanediol 10 mg 10 mg PO DAILY #30 tabs 10/05/24 10/25/24 Rx
tablet
furosemide 40 mg tablet 40 mg PO BID AT 0800,1600 #60 tabs 10/05/24 10/25/24 Rx
Review of Systems
-
History Source: Patient
All other systems: Negative unless noted
Physical Exam
Vital Signs
Temp Pulse Resp BP Pulse Ox
97.7 F 95 18 100/54 94
10/25/24 06:27 10/25/24 06:27 10/25/24 06:27 10/25/24 06:20 10/25/24 06:27
Lab Results
10/25/24 02:46
10/25/24 02:46
Troponin I 9.430 ng/ml H* 10/25/24 02:46
Physical Exam
General: No Apparent Distress, Comfortable and Other (on supp O2)
HEENT: Normocephalic, Anicteric and Moist Mucous Membranes
Respiratory: Clear and Non Labored Respirations
Cardiac: S1/S2 and Regular Rhythm
GI: Soft, Non Tender, Non Distended and Normal Bowel Sounds
Musculoskeletal: No Clubbing, No Cyanosis and Edema (trace of B/L LE)
Skin: Warm and Dry
Neuro: AO x 3
Impression / Plan
-
Primary Stitch Bonding Machine Tender: Dr. Rodger Bacon of [facility]
Primary [employer]: Dr. Jimmie Remy [phone]
Assessment:
Presentation to [facility] 10/22 with CP, RUE pain
Transfer to [facility] 10/25/24
NSTEMI
Acute on chronic HFrEF
Multivessel CAD
Status post LAD PCI 2004 at [facility]
s/p 2 overlapping 2.5 x 30 mm and 2.25 x 30 mm Medtronic [place] drug-eluting stents to LAD 09/29/2024
s/p 3 overlapping Medtronic Burak REBECA to prox to mid RCA 10/02/24
ICM, EF 20 to 25%
CKD3B
HTN
HLD
chronic LBBB
COPD on chronic 3L supp O2
History of PE
Chronic OAC with eliquis
History of statin intolerance (paralysis)
Raynaud's syndrome
Scleroderma on chronic steroids
Neuropathy
Hypothyroidism
History of breast cancer s/p mastectomy with reconstruction, chemo, radiation
Obesity
LOUISE on CPAP
Chronic anemia
Worship - will not accept blood transfusions
ECHO 09/26/24: EF 20 to 25% with global hypokinesis, moderate concentric LVH, stage I diastolic dysfunction, mild , small to moderate pericardial effusion posterior to left ventricle without evidence of hemodynamic compromise, ascending aorta
dilation measuring 4.1 cm
Plan:
- Patient with recent admission to [facility] 09/2024 with staged intervention to multivessel coronary disease including 2 overlapping LAD stents and 3 overlapping RCA stents presented back to [facility] on 10/22/2024 due to
development of central chest discomfort with radiation to R arm.
-ruled in for NSTEMI, continue to trend trops
-chest pain free
-check follow up echo study. reportedly study at [facility] looked similar with EF 20%
-continue plavix. holding eliquis, presently on IV heparin. she has history of asa sensitivity/intolerance with symptoms of severe abd pain, diarrhea, and cold sweats
-check proBNP. Cr stable at 1.6
-on regimen of coreg 3.125mg BID, farxiga 10mg daily, spironolactone 25mg daily as OP. imdur 30mg daily was added to regimen at [facility] 10/23. continue as BP/Cr allow
-she has been on colchicine 0.6mg daily for chronic pericarditis
-NPO for L/RHC today
-requested records from process specialist, Dr. Remy for review including most recent PFTs
-d/w nursing
Data Reviewed
-
EKG: Tracing Personally Visualized and interpreted
Radiology: Report Reviewed by me
Medical Tests (Nuc Med, Echo etc): Report Reviewed by me
Labs: Labs Reviewed by me
Old Records: Requested and Reviewed
[2024-10-25] MEDS: SPIRIVA RESPIMAT 2.5 MCG 2 PUFF INH (08:48)
[2024-10-25] MEDS: SYMBICORT 160/4.5 MCG INHALER 2 PUFF INH ×2 (08:48→20:01)
[2024-10-25 08:54] LABS: Glucose - Point of Care 97 mg/dl (70-99)
[2024-10-25] MEDS: COREG 3.125 MG PO ×2 (08:55→21:50)
[2024-10-25] MEDS: LOW STRENGTH ASPIRIN 81 MG PO (08:55)
[2024-10-25] MEDS: CARAFATE SUSPENSION 1 GM PO ×2 (08:55→17:52)
[2024-10-25] MEDS: FARXIGA 10 MG PO (08:57)
[2024-10-25] MEDS: PROTONIX 40 MG PO (08:57)
[2024-10-25] MEDS: IMDUR (EXTENDED RELEASE) PO (09:06)
--- NOTE | 2024-10-25 09:52 | CARDSERVLU ---
Echocardiogram with [facility]ason completed after protocol screening completed. Allergies verified.
Patent IV site: ___L Wrist__
IV site flushed with 0.9% NaCl pre and post administration.
Diluted bolus method utilized to enhance visualization of ventricular ernandez.
Total volume given: ___2.5_ mL
Patient tolerated all procedures well without complications.
--- NOTE | 2024-10-25 10:02 | W.PN.HOSP.TC ---
Today's Communication/Plan
-
IV heparin
Possible cath
Assessment / Plan
Assessment / Plan
74-year-old female with chest pain patient was hospitalized from 09/26/2024 to 10/05/2024 with CHF. Patient underwent staged PCI during that admission with PTCA and stent placement to LAD and RCA. Now comes back with chest pain [facility]. Troponin was elevated and placed on IV heparin. Echo showed EF of 20% she requested transfer to [place] where she has had multiple catheterizations.
Echo 09/26/2024-EF 20 to 25%, global hypokinesis, moderate concentric LVH, stage I diastolic dysfunction, mild , small to moderate pericardial effusion 2 LV, ascending aortic dilatation of 4.1 cm.
Cardiac cath September 2024-20% stenosis of LM. LAD proximal to mid heavily calcified with 50% followed by 95% stenosis at the second diagonal stents. First diagonal ostial 70% stenosis. Left circumflex ostial 70% stenosis. RCA mid 80% stenosis.
Status post proximal to mid overlapping drug-eluting stents on 09/29/2024. Status post 3 overlapping drug-eluting stents to proximal to mid RCA 10/02/2024.
EKG reviewed by me-sinus rhythm with PACs, left axis deviation
Pain free now
CVS: S1-S2 normal
Chest: CTA B/L
Abdomen: Soft, NT / Bowel sounds present
Extremities: No edema
# Non-STEMI
History of coronary disease with previous stents in 2004 at [facility] and also September 2024 at [facility] as above.
Recent LAD and RCA stents in September 2024 at [facility] [address] [facility]
Continue IV heparin
Follow troponin until it peaks
Continue aspirin, Coreg, Coreg.
Plavix on hold pending cardiology plans
Statin intolerant
PCSK9 inhibitors need to be considered as outpatient
Cardiology
May need Repeat Cath this time.
Await cards.
# Chronic HFrEF
Ischemic cardiomyopathy with ejection fraction 20 to 25%
Lasix and Farxiga were held at [place]
Farxiga resumed
Intake output charting and daily weights
# Asthma/COPD
Chronic hypoxic respiratory failure on 3 L of oxygen at home
Continue Breztri or any equivalents, azelastine, albuterol, fluticasone, as needed guaifenesin, montelukast.
# CKD stage III
Follow creatinine
Request Nephrology in case needs cath.
# Iron deficiency anemia-continue replacement. Patient was seen by GI during admission here in September and endoscopy held at that time. Needs outpatient GI follow-up
# Scleroderma/Raynaud's-continue prednisone and Plaquenil( Followed with Rheum in [facility] now sees Rheum at [place]?)
# Hypothyroidism-continue levothyroxine 75 mcg daily
# GERD-continue PPI, Carafate
Swallowing difficulty only with aspirin?-Outpatient GI evaluation discussed with pt.( [facility]
# Depression and anxiety-continue Lexapro and Ativan
# History of PE on Eliquis as outpatient
# History of pericarditis and pericardial effusion-continue colchicine
# Neuropathy NOS-continue gabapentin
# Sleep apnea-continue CPAP at 8 cm H2O( Follows with Dr.Patel Motta)
# History of pleural effusion requiring thoracentesis
# History of Arnett's palsy
# History of breast cancer with history of mastectomy on the right side with rectus flap reconstruction, chemo and radiation
# Hemorrhoids/IBS
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
# Over weight BMI 29.4
# Non-smoker
# DVT prophylaxis-on Eliquis as outpatient currently on hold. Continue IV heparin
# Full code
D/W RN at bed side
Part of this note was created using voice recognition system. Occasional wrong word or��sound alike� substitutions may have inadvertently occurred due to the inherent limitations of voice recognition software. If noted kindly bring it to my
attention for correction.
Anticipated Discharge: > 48 hours
Subjective/Interval History
-
Date of Service: October 25, 2024
Objective Data
-
Labs:
Laboratory Results
10/25/24 10/25/24 10/25/24
02:46 02:46 02:46
WBC Cancelled 9.6
Hgb Cancelled 8.5 L
Hct Cancelled
Plt Count
APTT
Sodium
Potassium
Chloride
Carbon Dioxide
BUN
Creatinine
Glucose
Calcium
10/25/24 10/25/24 10/25/24
02:46 02:46 09:32
WBC
Hgb
Hct 27.2 L
Plt Count Cancelled 291
APTT 34.6 Cancelled
Sodium 138
Potassium 4.9
Chloride 106
Carbon Dioxide 25
BUN 41 H
Creatinine 1.6 H
Glucose 100 H
Calcium 10.1
10/25/24
09:59
WBC
Hgb
Hct
Plt Count
APTT Pending
Sodium
Potassium
Chloride
Carbon Dioxide
BUN
Creatinine
Glucose
Calcium
Vital Signs:
Vital Signs
Temp Pulse Resp BP Pulse Ox
98.4 F 81 16 97/53 98
10/25/24 08:03 10/25/24 09:04 10/25/24 08:03 10/25/24 09:04 10/25/24 08:03
[2024-10-25 10:10] LABS: Troponin I 7.620 ng/ml
[2024-10-25 10:34] LABS: APTT 50.5 Sec (23.4-35.0)
--- NOTE | 2024-10-25 11:53 | W.CON.NEPH ---
Consultation
-
Date/Time Consultation Requested: October 25, 2024 at 10 AM
Date/Time Consultation Performed: October 25, 2024 at 11 AM
Requesting Provider: Dr. Samuels
Performing Provider: Dr. Alves
Reason for Consultation: PATRIA prevention and chronic kidney disease
Medical History
-
Chief Complaint: Elevated creatinine
History of Present Illness:
74y F with PMH significant for ASCVD, CHF, COPD, CKD and scleroderma who presents to as transfer from [facility] where she was hospitalized for NSTEMI. Patient was recently hospitalized at from 09/26 - 10/05 for ASCVD and CHF. She underwent staged PCI
during that admission with PTCA and stent placement to the LAD and RCA. Patient states that she was feeling well following that admission until this past Wednesday evening when she developed severe substernal chest pain with radiation into the R arm.
Patient requested transfer from [place]
Renal consult for PATRIA prevention in the setting of elevated creatinine.
Past Medical History
Past medical history including CAD with prior stents, CKD, COPD, breast cancer s/p mastectomy with chemo/radiation,
Social History
Tobacco: Non-Smoker
Alcohol: None
Family History
Family History: Not Pertinent
Allergies / Home Medications
Allergy/AdvReac Type Severity Reaction Status Date / Time
adhesive Allergy Blisters Verified 09/26/24 11:33
aspirin Allergy Nausea / Verified 09/26/24 16:15
Vomiting
Beta-Blockers Allergy depression Verified 09/26/24 11:33
(Beta-Adrenergic Bloc
colesevelam (From WelChol) Allergy Nausea / Verified 09/26/24 11:33
Vomiting
ezetimibe (From Zetia) Allergy Muscle pain Verified 09/26/24 11:33
fish oil Allergy Unknown Verified 09/26/24 11:33
Wowhutc-BZU-BgI Reductase Allergy paralysis Verified 09/26/24 11:33
Inhibitor
�Medication �Instructions �Recorded �Confirmed �Type
albuterol sulfate 90 mcg/actuation 2 puff inhalation Q6H PRN COPD 09/26/24 10/25/24 History
aerosol inhaler
apixaban 5 mg tablet (Eliquis) 5 mg PO BID 09/26/24 10/25/24 History
azelastine 137 mcg (0.1 %) nasal 1 spray intranasal BID 09/26/24 10/25/24 History
spray
budesonide 160 mcg-glycopyr 9 2 inh inhalation BID 09/26/24 10/25/24 History
mcg-formot 4.8 mcg/actuation HFA
inhaler (FClubztri Mezzobitphere)
carvedilol 3.125 mg tablet 3.125 mg PO BID 09/26/24 10/25/24 History
cetirizine 10 mg tablet 10 mg PO DAILY 09/26/24 10/25/24 History
clopidogrel 75 mg tablet (Plavix) 75 mg PO DAILY 09/26/24 10/25/24 History
colchicine 0.6 mg tablet 0.6 mg PO DAILY 09/26/24 10/25/24 History
cyclobenzaprine 10 mg tablet 10 mg PO HS 09/26/24 10/25/24 History
dexlansoprazole 60 mg 60 mg PO DAILY 09/26/24 10/25/24 History
capsule,biphase delayed release
escitalopram oxalate 20 mg tablet 20 mg PO DAILY 09/26/24 10/25/24 History
escitalopram oxalate 5 mg tablet 5 mg PO DAILY 09/26/24 10/25/24 History
fluticasone propionate 50 2 spray intranasal BID 09/26/24 10/25/24 History
mcg/actuation nasal
spray,suspension
gabapentin 300 mg capsule 300 mg PO HS 09/26/24 10/25/24 History
guaifenesin 600 mg tablet, 600 mg PO BID 09/26/24 10/25/24 History
extended release 12 hr
hydroxychloroquine 400 mg tablet 400 mg PO DAILY 09/26/24 10/25/24 History
levothyroxine 75 mcg tablet 75 mcg PO DAILY 09/26/24 10/25/24 History
lorazepam 1 mg tablet 0.5 mg PO HS PRN anxiety 09/26/24 10/25/24 History
montelukast 10 mg tablet 10 mg PO DAILY 09/26/24 10/25/24 History
multivitamin-ferrous 1 tab PO DAILY 09/26/24 10/25/24 History
fumarate-folic acid 18 mg-400 mcg
tablet (Centrum Women)
nitroglycerin 0.4 mg sublingual 0.4 mg sublingual Q5-15M PRN Chest 09/26/24 10/25/24 History
tablet pain
pantoprazole 40 mg tablet,delayed 40 mg PO DAILY 09/26/24 10/25/24 History
release
spironolactone 25 mg tablet 25 mg PO DAILY 09/26/24 10/25/24 History
sucralfate 100 mg/mL oral 10 ml PO AC 09/26/24 10/25/24 History
suspension
vitamin B complex 1 tab PO DAILY 09/26/24 10/25/24 History
prednisone 7.5 mg PO DAILY 09/28/24 10/25/24 History
dapagliflozin propanediol 10 mg 10 mg PO DAILY #30 tabs 10/05/24 10/25/24 Rx
tablet
furosemide 40 mg tablet 40 mg PO BID AT 0800,1600 #60 tabs 10/05/24 10/25/24 Rx
Review of Systems
-
Currently no chest pain or shortness of breath
All other systems: Negative unless noted
Physical Exam
Vital Signs
Vital Signs
Temp Pulse Resp BP Pulse Ox
98.1 F 78 18 95/49 94
10/25/24 11:32 10/25/24 11:32 10/25/24 11:32 10/25/24 11:32 10/25/24 11:32
Lab Results
WBC 9.6 10^3/uL (4.8-10.8) 10/25/24 02:46
WBC Cancelled 10/25/24 02:46
RBC 3.37 10^6/uL (4.20-5.40) L 10/25/24 02:46
RBC Cancelled 10/25/24 02:46
Hgb 8.5 g/dL (12.0-16.0) L 10/25/24 02:46
Hgb Cancelled 10/25/24 02:46
Hct 27.2 % (37.0-47.0) L 10/25/24 02:46
Hct Cancelled 10/25/24 02:46
Plt Count 291 10^3/uL (130-400) 10/25/24 02:46
Plt Count Cancelled 10/25/24 02:46
Sodium 138 mmol/L (135-145) 10/25/24 02:46
Potassium 4.9 mmol/L (3.5-5.1) 10/25/24 02:46
Chloride 106 mmol/L (98-107) 10/25/24 02:46
Carbon Dioxide 25 mmol/L (22-30) 10/25/24 02:46
BUN 41 mg/dl (7-17) H 10/25/24 02:46
Creatinine 1.6 mg/dL (0.6-1.0) H 10/25/24 02:46
eGFR 33.84 10/25/24 02:46
Glucose 100 mg/dl (70-99) H 10/25/24 02:46
Calcium 10.1 mg/dl (8.4-10.2) 10/25/24 02:46
Yzq-C-Tfzlravagrl Pept 7630 pg/ml 10/25/24 09:32
Physical Exam
General no acute distress
HEENT no cephalic atraumatic extraocular muscle intact no scleral icterus no JVD neck supple
lungs clear to auscultation bilateral
heart regular S1-S2 positive
abdomen soft nontender positive bowel sounds
extremities no edema pulses present bilateral
Neurologically nonfocal alert and oriented x 3
Skin no lesions no abrasions no petechiae
Psych normal affect no bizarre behavior
Data Reviewed
-
Labs: Labs Reviewed by me and Discussed with Patient
Assessment/Plan
-
74y F with PMH significant for ASCVD, CHF, COPD, CKD and scleroderma who presents to as transfer from [facility] where she was hospitalized for NSTEMI. Patient was recently hospitalized at from 09/26 - 10/05 for ASCVD and CHF. She underwent staged PCI
during that admission with PTCA and stent placement to the LAD and RCA. Patient states that she was feeling well following that admission until this past Wednesday evening when she developed severe substernal chest pain with radiation into the R arm.
Prior admissions to [facility] for pericarditis and pericardial effusion which was not drained (on colchicine).
Renal consult for PATRIA prevention in the setting of elevated creatinine.
Discharge's previous admission with the creatinine of 1.6 remains at 1 point
Impression.
Chronic kidney disease baseline creatinine 1.6
NSTEMI 10/24
Coronary artery disease requiring cardiac catheterization stenting LAD 09/29, RCA 10/02
Severe COPD on 2 L oxygen.
Pericarditis/pericardial effusion, chronic
Scleroderma unknown if limited or systemic
Rheumatoid arthritis
Heart failure reduced ejection fraction 27%= 10/25
History of hypercalcemia
History of pulmonary embolism
History of breast cancer right, in remission
Plan.
Stable creatinine 1.6 baseline
Pending left and right cardiac catheterization
Benefits discussed with the patient as on previous admission
Bicarbonate prophylaxis
The patient examines euvolemic will tolerate IV fluid
Correspondence noted
Discussed with the patient's nurse
[2024-10-25 12:28] LABS: Glucose - Point of Care 86 mg/dl (70-99)
[2024-10-25] MEDS: SODIUM BICARBONATE 1150 MEQ IV (12:33)
[2024-10-25] MEDS: CARAFATE SUSPENSION PO (12:45)
--- NOTE | 2024-10-25 13:15 | CM ---
Chart reviewed. Patient is independent of ADLS, lives alone in a 2nd floor apartment with a stairglide, uses a RW and rollator and also has a SPC. Patient gets 49 hours a week of assistance with the waiver program and is also current with [facility]. Referral sent to [facility] to resume services once medically stable for discharge. CM to follow
--- NOTE | 2024-10-25 14:39 | ITS.CL.CATH ---
Unloader - Catheterization
Cardiac Catheterization
Procedure Report:
RIGHT AND LEFT HEART STUDY
Date of Procedure: October 25, 2024
Referring: Dr. Modesto Friedman
PROCEDURES:
1. Right heart catheterization
2. Left heart catheterization with coronary angiography
INDICATION: This is a 74-year-old female with a past medical history notable for Raynaud's syndrome, scleroderma on chronic steroid, CKD 3B, LV dysfunction, and moderate restrictive and obstructive lung disease with moderately reduced DLCO. She was
admitted to [facility] on 09/26/2024 for coronary angiography and was found to have a high-grade stenosis within a previously stented mid to distal LAD segment. She underwent successful stenting of the mid to distal LAD with overlapping 2.5 x
30 mm and 2.25 x 30 mm [place] stents with a nice angiographic result. She returned several days later and underwent successful stenting of the proximal to mid right coronary artery.
The patient was discharged home and was admitted to [facility] on 10/22/2024 following development of crushing substernal chest pressure and right arm discomfort. 911 was called. Her symptoms lasted 3 to 4 hours prior to complete
resolution and her troponin became modestly elevated. Her apixaban was held as well as her clopidogrel. She was transferred to [facility] early in the morning of 10/25/2024 arriving here at approximately 1 AM. She has remained chest
pain-free since the initial event and her initial troponin here measured 9.5 ng/mL then fell to 7.62 ng/mL.
She is a [employer] and is found to be mildly anemic. Her creatinine currently measures 1.6 mg/dL
ACCESS: Left common femoral artery and left common femoral vein with placement of 6 Azerbaijani sheaths. Ultrasound guidance was utilized
HEMODYNAMICS : mmHg
RA (m) : 12
RV (s/d) : 47/13, 16
PA (s/d, m) : 46/25, 33
PCWP (m) : 25
AO (s/d, m) : 103/55, 74
LV (s/d) : 105/17
LVEDP : 36
Estimated Zehra Cardiac Output: 5.2 L / min and Cardiac Index: 2.7 L/ min / m-2
Systemic vascular resistance: 12 Wood units or 954 pstbm-rwx-wq(-5)
Pulmonary vascular resistance: 1.5 Wood units or 123 dbzub-fwc-td(-5)
CORONARY FINDINGS :
Dominance:
LEFT MAIN: Normal
LEFT ANTERIOR DESCENDING: The LAD arises normally from the left main with calcified mild ostial narrowing that appears angiographically. There are multiple overlapping stents from the proximal to mid LAD spanning the origin of both the first and
the second diagonal branch. The LAD just beyond the second diagonal branch is now found to be 100% occluded at the area of prior 95% stenosis treated with re-stenting early in September 2024. The distal LAD fills via faint left to left collaterals.
CIRCUMFLEX: The circumflex is a moderate to large caliber vessel that gives rise to a first obtuse marginal branch that bifurcates proximally.
RIGHT CORONARY ARTERY: Large-caliber dominant vessel. The stents from the proximal to mid RCA are widely patent. The PDA is large and widely patent as is the posterolateral
VENTRICULOGRAPHY: Not done due to renal insufficiency
SEDATION: 22 minutes of procedural sedation was utilized. An independent medical record administrator was present to assist with and help manage the patient's level of consciousness and physiologic status
RADIATION SUMMARY: Fluoro Time (min): 3.1, Dose (mGy): 338, DAP (Gy.cm2) : 25.3
CONCLUSIONS
1. In the mid-distal LAD is now found to be 100% occluded in the area of stent overlap and previous high-grade in-stent restenosis. The distal vessel fills via faint olcv-ph-gvxzp collaterals. She has been chest pain-free for over 48 hours
2. Patent proximal LAD stent with patent 1st and 2nd diagonal and widely patent RCA stent
3. Elevated right and left ventricular filling pressures
RECOMMENDATIONS
1. Medical management for completed apical LAD infarct. If the patient develops recurring anginal symptoms that are refractory to medical therapy could consider attempted revascularization of the occluded LAD
2. Reloaded with clopidogrel. Will obtain Verify Now assay to assess for clopidogrel resistance. I am somewhat reluctant to treat with ticagrelor given history of anemia. Will consider restarting apixaban on 10/26/2024. May consider the addition
of Ranexa or addition of a long-acting nitrate depending on blood pressures
Copy to: Dr. Rodger Bacon
--- NOTE | 2024-10-25 14:45 | PTCARENOTE ---
Received pt from cathead operator, VSS, monitor showing SR. Left groin dressing c/d/i, no bleeding, no hematoma, +2 pedal pulses. Bedrest maintained, educated pt on anticipated time OOB. Denies chest pain @ present. Resting comfortably, call benz in
reach.
[2024-10-25 17:07] LABS: Glucose - Point of Care 97 mg/dl (70-99)
[2024-10-25] MEDS: PLAQUENIL 400 MG PO (17:51)
[2024-10-25] MEDS: LEXAPRO 5 MG PO (17:51)
[2024-10-25] MEDS: DELTASONE 7.5 MG PO (17:51)
[2024-10-25] MEDS: LEXAPRO 20 MG PO (17:52)
[2024-10-25] MEDS: ZYRTEC 10 MG PO (17:52)
[2024-10-25] MEDS: SINGULAIR 10 MG PO (17:52)
[2024-10-25] MEDS: COLCHICINE 0.6 MG PO (17:52)
[2024-10-25] MEDS: FEOSOL 325 MG PO (17:53)
[2024-10-25 21:44] LABS: Glucose - Point of Care 99 mg/dl (70-99)
[2024-10-25] MEDS: NEURONTIN 300 MG PO (21:49)
[2024-10-25] MEDS: FLEXERIL 10 MG PO (21:50)
[2024-10-25] MEDS: ATIVAN 0.5 MG PO (21:51)
[2024-10-25] MEDS: FEOSOL PO (21:53)
--- NOTE | 2024-10-25 23:06 | PTCARENOTE ---
Received pt at change of shift resting in bed. SR on the monitor, HR in the 80's. pt denies any chest pain or SOB at this time. Heparin gtt restarted per MD order, infusing at 1,000 units/hr. Left femoral site C.D.I. No bleeding or hematoma noted at
this time. BP's 100/42, 82/50, and 98/51 on left arm. Hephziba, COMPLIANCE REVIEWER made aware. Rechecked an hour later with result of 101/49. COMPLIANCE REVIEWER instructed to give Coreg. RT placed pt on CPAP. Educated pt on activity restrictions and to call staffing operations manager if assistance
ambulating is needed. Call benz within reach.
[2024-10-26] VITALS (9 sets, daily range): BP systolic 87–111; BP diastolic 41–69; PULSE 86; BMI 29.5
[2024-10-26 03:04] LABS: APTT 41.3 Sec (23.4-35.0)
[2024-10-26 03:07] LABS: Hematocrit 25.7 % (37.0-47.0); Hemoglobin 7.9 g/dL (12.0-16.0); Mean Corp Hgb Conc. 30.7 g/dL (33.0-37.0); Mean Corpuscular Volume 80.6 fL (81.0-99.0); Platelet Count 236 10^3/uL (130-400); Red Cell Dist. Width 15.8 % (11.5-14.5)
[2024-10-26 03:10] LABS: VerifyNow PRU 231 PRU (180-376)
[2024-10-26 03:21] LABS: Blood Urea Nitrogen 35 mg/dl (7-17); Calcium 9.2 mg/dl (8.4-10.2); Carbon Dioxide 27 mmol/L (22-30); Chloride 104 mmol/L (98-107); Estimated Creatinine Clearance 39 ml/min; Glucose 108 mg/dl (70-99); Potassium 5.1 mmol/L (3.5-5.1); Sodium 137 mmol/L (135-145); eGFR 39.73
[2024-10-26] MEDS: SYNTHROID 75 MCG PO (05:57)
[2024-10-26] MEDS: HEPARIN 25000 UNITS/250 ML IV (06:33)
[2024-10-26] MEDS: SPIRIVA RESPIMAT 2.5 MCG 2 PUFF INH (07:20)
[2024-10-26] MEDS: SYMBICORT 160/4.5 MCG INHALER 2 PUFF INH ×2 (07:20→20:19)
[2024-10-26 08:48] LABS: Glucose - Point of Care 114 mg/dl (70-99)
[2024-10-26] MEDS: LASIX 40 MG IV ×2 (08:59→15:48)
[2024-10-26] MEDS: CARAFATE SUSPENSION 1 GM PO ×3 (08:59→17:05)
--- NOTE | 2024-10-26 08:59 | W.PN.CARDCBS ---
Addendum entered and electronically signed by Rodger Schmitz MD 10/26/24 10:58:
Patient seen, interviewed and examined by me.
Well-appearing, no acute distress
Regular rate and rhythm with normal S1 and S2, no S3 no S4. There is a grade 1/6 apical holosystolic murmur and no rubs. PMI is normally placed.
Lungs are clear to auscultation bilaterally without wheezes rales or rhonchi.
Abdomen soft nontender nondistended with normoactive bowel sounds
Extremities show trace pretibial edema bilaterally no clubbing or cyanosis.
Neurologic exam is grossly nonfocal.
Primary Athletic Equipment Custodian: Dr. Rodger Bacon of [facility]
Primary Warper Fixer: Dr. Jimmie Remy [phone]
Assessment:
Presentation to [facility] 10/22 with CP, RUE pain
Transfer to [facility] 10/25/24
NSTEMI
Acute on chronic HFrEF
Multivessel CAD
Status post LAD PCI 2004 at [facility]
s/p 2 overlapping 2.5 x 30 mm and 2.25 x 30 mm Medtronic [place] drug-eluting stents to LAD 09/29/2024
s/p 3 overlapping Medtronic [place] REBECA to prox to mid RCA 10/02/24ICM, EF 20 to 25%
CKD3B
HTN
HLD
chronic LBBB
COPD on chronic 3L supp O2
History of PE
Chronic OAC with eliquis
History of statin intolerance (paralysis)
Raynaud's syndrome
Scleroderma on chronic steroids
Neuropathy
Hypothyroidism
History of breast cancer s/p mastectomy with reconstruction, chemo, radiation
Obesity
LOUISE on CPAP
Chronic anemia
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
ECHO 09/26/24: EF 20 to 25% with global hypokinesis, moderate concentric LVH, stage I diastolic dysfunction, mild , small to moderate pericardial effusion posterior to left ventricle without evidence of hemodynamic compromise, ascending aorta
dilation measuring 4.1 cm
Follow-up echo 10/25/2024: EF 27%, mild concentric LVH, global hypokinesis with regional wall motion abnormalities and septum severely hypo to akinetic, small to moderate inferolateral pericardial effusion without hemodynamic compromise
Recommendations:
She presented with chest pain and non-ST segment elevation myocardial infarction. She underwent coronary angiography on October 25, 2024 finding mid-distal LAD is now found to be 100% occluded in the area of stent overlap and previous high-grade
in-stent restenosis. The distal vessel fills via faint [id number]-rn-inlbb collaterals. Patent proximal LAD stent with patent 1st and 2nd diagonal and widely patent RCA stent and elevated right and left ventricular filling pressures
She has been chest pain-free for over 48 hours and therefore medical management for completed apical LAD infarct has been recommended by IC.
Additionally she is found to be significantly volume overloaded with LVEDP of 36 mmHg, RA pressure of 12, RV pressure 47/13, pulmonary capital wedge pressure of 25. Preserved cardiac output and index at 5.2 and 2.7.
IV Lasix diuresis
We will transition IV heparin back to Eliquis today
Maintain Plavix 75 mg daily.
She has history of asa sensitivity/intolerance with symptoms of severe abd pain, diarrhea, and cold sweats, but has been tolerating more recently Veriyfy Now is ordered
Maintain Coreg 3.125 mg twice daily
Maintain Imdur 30 mg daily
Guideline directed medical therapy for heart failure with reduced ejection fraction as renal function allows
Maintain carvedilol 3.125 mg twice daily
Maintain Imdur 30 mg daily
Maintain Farxiga 10 mg daily
Maintain spironolactone 25 mg daily
As an outpatient there will need to be consideration for sudden cardiac risk assessment, consideration for ICD/ROUNDING MACHINE OPERATOR-D implantation for primary risk reduction
Chronic anemia, hgb 7.9. has chronic anemia. continue iron. she is Pentecostal and will not accept blood products
Original Note:
Today's Communication / Plan
-
IV lasix
continue coreg, imdur. follow BPs
[facility], with chronic anemia
continue plavix. check verify now
PT/OT/ST
Impression / Plan
-
Primary Athletic Equipment Custodian: Dr. Rodger Bacon of [facility]
Primary Warper Fixer: Dr. Jimmie Remy [phone]
Assessment:
Presentation to [facility] 10/22 with CP, RUE pain
Transfer to [facility] 10/25/24
NSTEMI
Acute on chronic HFrEF
Multivessel CAD
Status post LAD PCI 2004 at [facility]
s/p 2 overlapping 2.5 x 30 mm and 2.25 x 30 mm Medtronic [place] drug-eluting stents to LAD 09/29/2024
s/p 3 overlapping Medtronic [place] REBECA to prox to mid RCA 10/02/24
ICM, EF 20 to 25%
CKD3B
HTN
HLD
chronic LBBB
COPD on chronic 3L supp O2
History of PE
Chronic OAC with eliquis
History of statin intolerance (paralysis)
Raynaud's syndrome
Scleroderma on chronic steroids
Neuropathy
Hypothyroidism
History of breast cancer s/p mastectomy with reconstruction, chemo, radiation
Obesity
LOUISE on CPAP
Chronic anemia
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
ECHO 09/26/24: EF 20 to 25% with global hypokinesis, moderate concentric LVH, stage I diastolic dysfunction, mild , small to moderate pericardial effusion posterior to left ventricle without evidence of hemodynamic compromise, ascending aorta
dilation measuring 4.1 cm
Follow-up echo 10/25/2024: EF 27%, mild concentric LVH, global hypokinesis with regional wall motion abnormalities and septum severely hypo to akinetic, small to moderate inferolateral pericardial effusion without hemodynamic compromise
Plan:
- Patient with recent admission to [facility] 09/2024 with staged intervention to multivessel coronary disease including 2 overlapping LAD stents and 3 overlapping RCA stents presented back to [facility] on 10/22/2024 due to
development of central chest discomfort with radiation to R arm.
- trop at [facility] peaked at 9.4 and trending down
- underwent cath 10/25/24 with evidence of completed apical LAD infarct. Plan for medical management
- Check verify now. For now continue Plavix. Transitioning IV heparin back to Eliquis tonight. she has history of asa sensitivity/intolerance with symptoms of severe abd pain, diarrhea, and cold sweats, but has been tolerating more recently
-hgb 7.9. has chronic anemia. continue iron. she is Pentecostal and will not accept blood products
- Remains chest pain-free
- Follow-up echo 10/25/2024 with EF 27% with global hypokinesis with regional wall motion abnormalities and septum severely hypo to akinetic, small to moderate inferolateral pericardial effusion
- Also noted to be volume overloaded by cath with wedge of 25 and LVEDP of 36. Ordered IV Lasix 40 mg twice daily. Nephrology following. Cr stable at 1.4
- on regimen of coreg 3.125mg BID, farxiga 10mg daily, spironolactone 25mg daily as OP. holding spironolactone due to low BP. imdur 30mg daily was added to regimen at [facility] 10/23. continue as BP/Cr allow, generally BPs on low side
- she has been on colchicine 0.6mg daily for chronic pericarditis
- reviewed records from managing editor, Dr. Remy including most recent PFTs
- PT/OT/ST (c/o dysphagia at times with pills)
Progress Note - Athletic Equipment Custodian
Subjective
Date of Service: October 26, 2024
No chest pain overnight. Does report some right shoulder discomfort/weakness with movement
Objective
Labs:
10/26/24 02:30
10/26/24 02:30
Labs
Hgb 7.9 g/dL (12.0-16.0) L 10/26/24 02:30
Hct 25.7 % (37.0-47.0) L 10/26/24 02:30
Plt Count 236 10^3/uL (130-400) 10/26/24 02:30
APTT 41.3 Sec (23.4-35.0) H 10/26/24 02:30
Sodium 137 mmol/L (135-145) 10/26/24 02:30
Potassium 5.1 mmol/L (3.5-5.1) 10/26/24 02:30
BUN 35 mg/dl (7-17) H 10/26/24 02:30
Creatinine 1.4 mg/dL (0.6-1.0) H 10/26/24 02:30
Glucose 108 mg/dl (70-99) H 10/26/24 02:30
Troponins
10/25/24 10/25/24 10/25/24
02:46 09:32 15:00
Troponin I 9.430 H* 7.620 H* Cancelled
10/25/24
21:00
Troponin I Cancelled
Vital Signs and I&O:
Vital Signs
Temp Pulse Resp BP Pulse Ox
97.9 F 86 20 102/52 97
10/26/24 07:39 10/26/24 07:23 10/26/24 07:39 10/26/24 02:13 10/26/24 07:39
Vital Signs
Temp Pulse Resp BP Pulse Ox
97.9 F 86 20 102/52 97
10/26/24 07:39 10/26/24 07:23 10/26/24 07:39 10/26/24 02:13 10/26/24 07:39
Physical Exam
Physical Exam
GEN: No distress, awake, alert, oriented x3. on supp O2
HEENT: supple, anicteric, mmm, eomi
LUNGS: CTA B/L, no wheezes/rales
CV: Reg, S1/S2, no murmur
ABD: soft, BS+, NT/ND
EXT: No cyanosis, clubbing, edema
NEURO: Gross non-focal
SKIN: Warm, pink, dry. No rash. L groin site soft, with dressing c/d/i.
[2024-10-26] MEDS: SINGULAIR 10 MG PO (09:00)
[2024-10-26] MEDS: PROTONIX 40 MG PO (09:00)
[2024-10-26] MEDS: FARXIGA 10 MG PO (09:00)
[2024-10-26] MEDS: LEXAPRO 20 MG PO (09:00)
[2024-10-26] MEDS: FEOSOL 325 MG PO (09:01)
[2024-10-26] MEDS: COLCHICINE 0.6 MG PO (09:01)
[2024-10-26] MEDS: COREG 3.125 MG PO ×2 (09:01→20:14)
[2024-10-26] MEDS: IMDUR (EXTENDED RELEASE) 30 MG PO (09:01)
[2024-10-26] MEDS: PLAVIX 75 MG PO (09:02)
[2024-10-26] MEDS: PLAQUENIL 400 MG PO (09:02)
[2024-10-26] MEDS: ZYRTEC 10 MG PO (09:02)
[2024-10-26] MEDS: DELTASONE 7.5 MG PO (09:02)
[2024-10-26] MEDS: LEXAPRO 5 MG PO (09:03)
[2024-10-26] MEDS: FLUSH (NSS) 1 FLUSH IV ×2 (09:08→15:49)
--- NOTE | 2024-10-26 10:20 | W.PN.HOSP.TC ---
Today's Communication/Plan
-
Check erythropoietin level and iron studies
Continue heparin drip and switch over to Eliquis tonight
Assessment / Plan
Assessment / Plan
74-year-old female with chest pain patient was hospitalized from 09/26/2024 to 10/05/2024 with CHF. Patient underwent staged PCI during that admission with PTCA and stent placement to LAD and RCA. Now comes back with chest pain patient was taken to
[facility]. Troponin was elevated and placed on IV heparin. Echo showed EF of 20% she requested transfer to [place] where she has had multiple catheterizations.
Echo 11-17-mild concentric LVH. EF 27%. Global hypokinesis with regional wall motion abnormality. Severely hypokinetic to akinetic septum. Small to moderate inferolateral pericardial effusion without hemodynamic compromise.
Cardiac cath September 2024-20% stenosis of LM. LAD proximal to mid heavily calcified with 50% followed by 95% stenosis at the second diagonal stents. First diagonal ostial 70% stenosis. Left circumflex ostial 70% stenosis. RCA mid 80% stenosis.
Status post proximal to mid overlapping drug-eluting stents on 09/29/2024. Status post 3 overlapping drug-eluting stents to proximal to mid RCA 10/02/2024.
EKG reviewed by me-sinus rhythm with PACs, left axis deviation
CVS: S1-S2 normal
Chest: CTA B/L
Abdomen: Soft, NT / Bowel sounds present
Extremities: No edema
# Non-STEMI
History of coronary disease with previous stents in 2004 at [place] and also September 2024 at [facility] as above.
Recent LAD and RCA stents in September [address] [facility]
Troponin peaked to 9.4
Cath 10-25-24 with evidence of completed LAD infarct in the apical area. Medical management recommended
Continue IV heparin till 8 PM and changed to Eliquis
Continue aspirin, Plavix,Coreg.
Statin intolerant
PCSK9 inhibitors need to be considered as outpatient
Cardiology following
# Chronic HFrEF
Ischemic cardiomyopathy with ejection fraction 20 to 25%
Much pressure on cath 25 with LVEDP of 36
Continue IV Lasix 40 mg twice daily
Hold Aldactone secondary to low blood pressure, continue Coreg, Farxiga
Not on JOSSELYN inhibitor/ARB or Arni secondary to renal function
Intake output charting and daily weights
# Asthma/COPD
Chronic hypoxic respiratory failure on 3 L of oxygen at home
Continue Breztri or any equivalents, azelastine, albuterol, fluticasone, as needed guaifenesin, montelukast.
# CKD stage III
Follow creatinine-1.4 today
Nephrology evaluation appreciated
# Iron deficiency anemia-continue replacement. Patient was seen by GI during admission here in September and endoscopy held at that time. Needs outpatient GI follow-up
Recheck iron levels and give IV iron if needed
check Erythropetin level
# Scleroderma/Raynaud's-continue prednisone and Plaquenil( Followed with Rheum in [facility] now sees Rheum at [place]?)
# Hypothyroidism-continue levothyroxine 75 mcg daily
# GERD-continue PPI, Carafate
Swallowing difficulty only with aspirin?-Outpatient GI evaluation discussed with pt.( Has seen and had an EGD at [facility])
# Depression and anxiety-continue Lexapro and Ativan
# History of PE on Eliquis as outpatient
# History of pericarditis and pericardial effusion-continue colchicine
# Neuropathy NOS-continue gabapentin
# Sleep apnea-continue CPAP at 8 cm H2O( Follows with Dr.Patel Motta)
# History of pleural effusion requiring thoracentesis
# History of Arnett's palsy
# History of breast cancer with history of mastectomy on the right side with rectus flap reconstruction, chemo and radiation
# Hemorrhoids/IBS
# Patient is a [employer]- Refuses blood if needed.
# Over weight BMI 29.4
# Non-smoker
# DVT prophylaxis-on Eliquis as outpatient currently on hold. Continue IV heparin
# Full code
D/W RN at bed side
Part of this note was created using voice recognition system. Occasional wrong word or��sound alike� substitutions may have inadvertently occurred due to the inherent limitations of voice recognition software. If noted kindly bring it to my
attention for correction.
Anticipated Discharge: 24 - 48 hours
Subjective/Interval History
-
Date of Service: October 26, 2024
Objective Data
-
Labs:
Laboratory Results
10/26/24 10/26/24
02:30 10:07
WBC 8.4
Hgb 7.9 L
Hct 25.7 L
Plt Count 236
APTT 41.3 H Pending
Sodium 137
Potassium 5.1
Chloride 104
Carbon Dioxide 27
BUN 35 H
Creatinine 1.4 H
Glucose 108 H
Calcium 9.2
Vital Signs:
Vital Signs
Temp Pulse Resp BP Pulse Ox
97.9 F 84 20 91/50 95
10/26/24 07:39 10/26/24 09:01 10/26/24 07:39 10/26/24 09:01 10/26/24 08:30
[2024-10-26 10:36] LABS: APTT 66.2 Sec (23.4-35.0)
[2024-10-26 12:07] LABS: Glucose - Point of Care 132 mg/dl (70-99)
--- NOTE | 2024-10-26 12:55 | W.PN.NEPH.PH ---
Today's Communication / Plan
-
IV Lasix
Assessment/Plan
-
74y F with PMH significant for ASCVD, CHF, COPD, CKD and scleroderma who presents to as transfer from [facility] where she was hospitalized for NSTEMI. Patient was recently hospitalized at from 09/26 - 10/05 for ASCVD and CHF. She underwent staged PCI
during that admission with PTCA and stent placement to the LAD and RCA. Patient states that she was feeling well following that admission until this past Wednesday evening when she developed severe substernal chest pain with radiation into the R arm.
Prior admissions to [facility] for pericarditis and pericardial effusion which was not drained (on colchicine).
Renal consult for PATRIA prevention in the setting of elevated creatinine.
Discharge's previous admission with the creatinine of 1.6 remains at 1 point
Impression.
Chronic kidney disease baseline creatinine 1.6
NSTEMI 10/24
Coronary artery disease requiring cardiac catheterization stenting LAD 09/29, RCA 10/02
Severe COPD on 2 L oxygen.
Pericarditis/pericardial effusion, chronic
Scleroderma unknown if limited or systemic
Rheumatoid arthritis
Heart failure reduced ejection fraction 27%= 10/25
History of hypercalcemia
History of pulmonary embolism
History of breast cancer right, in remission
Plan.
Stable creatinine 1.6 > 1.4 post cath
Left and right cardiac catheterization= restenosis of LAD no intervention/elevated filling pressures
IV Lasix per cardiology lead
Sodium restrict
Monitor weight
Correspondence noted
-
-
Date of Service: October 26, 2024
CC / HPI / ROS
-
Chief Complaint:
Chest pain
History of Present Illness:
Presents with chest pain with significant history of CAD and elevated creatinine
Review of Systems:
No chest pain or shortness of breath
Labs
-
Labs:
WBC 8.4 10^3/uL (4.8-10.8) 10/26/24 02:30
RBC 3.19 10^6/uL (4.20-5.40) L 10/26/24 02:30
Hgb 7.9 g/dL (12.0-16.0) L 10/26/24 02:30
Hct 25.7 % (37.0-47.0) L 10/26/24 02:30
Plt Count 236 10^3/uL (130-400) 10/26/24 02:30
Sodium 137 mmol/L (135-145) 10/26/24 02:30
Potassium 5.1 mmol/L (3.5-5.1) 10/26/24 02:30
Chloride 104 mmol/L (98-107) 10/26/24 02:30
Carbon Dioxide 27 mmol/L (22-30) 10/26/24 02:30
BUN 35 mg/dl (7-17) H 10/26/24 02:30
Creatinine 1.4 mg/dL (0.6-1.0) H 10/26/24 02:30
eGFR 39.73 10/26/24 02:30
Glucose 108 mg/dl (70-99) H 10/26/24 02:30
Calcium 9.2 mg/dl (8.4-10.2) 10/26/24 02:30
Dwp-C-Kwtirhgaaqf Pept 7630 pg/ml 10/25/24 09:32
Physical Exam
-
Vital Signs:
Vital Signs
Temp Pulse Resp BP Pulse Ox
98.9 F 84 20 91/50 98
10/26/24 11:53 10/26/24 09:01 10/26/24 11:53 10/26/24 09:01 10/26/24 11:53
Cardiovascular:: Regular rate and rhythm
Respiratory:: Bilateral: Coarse
Lung Excursion:: Normal
Abdomen:: Nontender and Soft
Bowel Sounds:: Normal
Extremity Edema:: None: Bilateral:
[2024-10-26 13:49] LABS: Iron 71 ug/dl (37-170)
[2024-10-26 13:58] LABS: Total Iron Binding Capacity 379 ug/dl (265-497)
[2024-10-26 15:26] LABS: Ferritin 10.7 ng/ml (11.1-264.0)
--- NOTE | 2024-10-26 15:51 | W.PN.UPDATE ---
Update Note
Progress Note Update
IV iron ordered
Erythropetin level pending
--- NOTE | 2024-10-26 15:59 | PTOTSP ---
Dysphagia Evaluation
Patient is at an elevated risk for dysphagia due to comorbidities (i.e., COPD, scleroderma, rheumatoid arthritis, history of XRT to treat breast cancer, GERD). Patient reported a history of infrequent 'choking' episodes as well as 4 respiratory
infections this year since April.
During clinical bedside swallowing evaluation, no overt signs of dysphagia/aspiration observed. However, given history recommend video swallow study, which could be completed at the outpatient level.
Recommend:
1. IDDSI 7 Regular, Thin Liquids
2. Medications in puree
3. Strategies: upright to 90 degrees, reflux precautions
4. Video swallow study
--- NOTE | 2024-10-26 16:49 | CM ---
Pricing on Harimata through the patients [employer], ID# [id number] is $0 copay.
[2024-10-26] MEDS: FERRLECIT 110 MG IV (17:05)
[2024-10-26 17:51] LABS: Glucose - Point of Care 129 mg/dl (70-99)
[2024-10-26] MEDS: ELIQUIS 5 MG PO (20:14)
[2024-10-26 22:00] LABS: Glucose - Point of Care 130 mg/dl (70-99)
[2024-10-26] MEDS: FLEXERIL 10 MG PO (22:04)
[2024-10-26] MEDS: NEURONTIN 300 MG PO (22:04)
[2024-10-26] MEDS: ATIVAN 0.5 MG PO (22:04)
[2024-10-27] VITALS (12 sets, daily range): BP systolic 89–102; BP diastolic 46–58; PULSE 73–81; BMI 29.4
--- NOTE | 2024-10-27 00:35 | PTCARENOTE ---
assumed care of patient at the change of shift. AAOx3. heparin gtt stopped at 2000 per order. Eliquis given, see mar. patient denies any cp/sob. patient states feeling much better. SR on tele- 80s. bp stable. independent in the room. ambulated with
the patient in the hallway-steady. appeared comfortable. patient eager to go home. educated to inform RN with any changes overnight. call benz within reach. makes needs known.
[2024-10-27 04:55] LABS: Hematocrit 28.6 % (37.0-47.0); Hemoglobin 8.6 g/dL (12.0-16.0); Mean Corp Hgb Conc. 30.1 g/dL (33.0-37.0); Mean Corpuscular Volume 82.4 fL (81.0-99.0); Platelet Count 279 10^3/uL (130-400); Red Cell Dist. Width 16.3 % (11.5-14.5)
[2024-10-27 05:14] LABS: Blood Urea Nitrogen 39 mg/dl (7-17); Calcium 10.0 mg/dl (8.4-10.2); Carbon Dioxide 29 mmol/L (22-30); Chloride 102 mmol/L (98-107); Estimated Creatinine Clearance 29 ml/min; Glucose 92 mg/dl (70-99); Potassium 4.6 mmol/L (3.5-5.1); Sodium 139 mmol/L (135-145); eGFR 27.54
--- NOTE | 2024-10-27 06:23 | PTCARENOTE ---
patient slept well overnight. no cp. tolerated CPAP.
--- NOTE | 2024-10-27 07:43 | W.PN.CARDCBS ---
Today's Communication / Plan
-
Overall clinically improved but I am concerned we may have over diuresed her. I am stopping Lasix as of today until she is further evaluated by nephrology regarding her chronic kidney disease and now acute on chronic renal insufficiency.
Impression / Plan
-
Primary Newspaper Reporter: Dr. Rodger Bacon of [facility]
Primary Pain Coordinator: Dr. Jimmie Remy [phone]
Assessment:
Presentation to [facility] 10/22 with CP, RUE pain
Transfer to [facility] 10/25/24
NSTEMI
Acute on chronic HFrEF
Multivessel CAD
Status post LAD PCI 2004 at [facility]
s/p 2 overlapping 2.5 x 30 mm and 2.25 x 30 mm [employer] [place] drug-eluting stents to LAD 09/29/2024
s/p 3 overlapping [employer] [place] REBECA to prox to mid RCA 10/02/24ICM, EF 20 to 25%CKD3B
HTN
HLD
chronic LBBB
COPD on chronic 3L supp O2
History of PE
Chronic OAC with eliquis
History of statin intolerance (paralysis)
Raynaud's syndrome
Scleroderma on chronic steroids
Neuropathy
Hypothyroidism
History of breast cancer s/p mastectomy with reconstruction, chemo, radiation
Obesity
LOUISE on CPAP
Chronic anemia
Holiness - will not accept blood transfusions
ECHO 09/26/24: EF 20 to 25% with global hypokinesis, moderate concentric LVH, stage I diastolic dysfunction, mild , small to moderate pericardial effusion posterior to left ventricle without evidence of hemodynamic compromise, ascending aorta
dilation measuring 4.1 cm
Follow-up echo 10/25/2024: EF 27%, mild concentric LVH, global hypokinesis with regional wall motion abnormalities and septum severely hypo to akinetic, small to moderate inferolateral pericardial effusion without hemodynamic compromise
Recommendations:
She presented with chest pain and non-ST segment elevation myocardial infarction. She underwent coronary angiography on October 25, 2024 finding mid-distal LAD is now found to be 100% occluded in the area of stent overlap and previous high-grade
in-stent restenosis. The distal vessel fills via faint [id number] collaterals. Patent proximal LAD stent with patent 1st and 2nd diagonal and widely patent RCA stent and elevated right and left ventricular filling pressures
She has been chest pain-free for over 48 hours and therefore medical management for completed apical LAD infarct has been recommended by IC.
Additionally she is found to be significantly volume overloaded with LVEDP of 36 mmHg, RA pressure of 12, RV pressure 47/13, pulmonary capital wedge pressure of 25. Preserved cardiac output and index at 5.2 and 2.7.
IV Lasix diuresis
Transitioned from IV heparin back to Eliquis 10/26
Maintain Plavix 75 mg daily.
She has history of asa sensitivity/intolerance with symptoms of severe abd pain, diarrhea, and cold sweats, but has been tolerating more recently Veriyfy Now is ordered
Maintain Coreg 3.125 mg twice daily
Maintain Imdur 30 mg daily
HFrEF, Guideline directed medical therapy for heart failure with reduced ejection fraction as renal function allows
Maintain carvedilol 3.125 mg twice daily
Maintain Imdur 30 mg daily
Maintain Farxiga 10 mg daily
Maintain spironolactone 25 mg daily
As an outpatient there will need to be consideration for sudden cardiac risk assessment, consideration for ICD/SURGICAL SUPERVISOR-D implantation for primary risk reduction
Obstructive sleep apnea
On CPAP
Chronic kidney disease
Creatinine is up today. (1.6 on 10/25 -> 1.4 on 10/26 -> 1.9 on 10/27)
She has been getting Lasix 80 mg IV twice daily. Weight is not changed much in urine output is not recorded.
Given worsening renal function today, I am stopping Lasix until she can be further evaluated by nephrology
Chronic anemia, hgb 7.9 -6.6 this adm. Has chronic anemia. continue iron. she is Holiness and will not accept blood products
As per primary service, IV iron is ordered and erythropoietin level is pending
I informed the patient and reviewed with her her renal insufficiency and my plan to hold Lasix until she is further evaluated by nephrology.
All of her questions have been answered
Total time 51 minutes
Progress Note - Newspaper Reporter
Subjective
Date of Service: October 27, 2024
She tells me she feels well this morning. She tells me that she was up and ambulating in the hallway yesterday and did not feel short of breath at all. No chest pain
Objective
Labs:
10/27/24 04:27
10/27/24 04:27
Labs
Hgb 8.6 g/dL (12.0-16.0) L 10/27/24 04:27
Hct 28.6 % (37.0-47.0) L 10/27/24 04:27
Plt Count 279 10^3/uL (130-400) 10/27/24 04:27
APTT Cancelled 10/26/24 17:00
Sodium 139 mmol/L (135-145) 10/27/24 04:27
Potassium 4.6 mmol/L (3.5-5.1) 10/27/24 04:27
BUN 39 mg/dl (7-17) H 10/27/24 04:27
Creatinine 1.9 mg/dL (0.6-1.0) H 10/27/24 04:27
Glucose 92 mg/dl (70-99) 10/27/24 04:27
Troponins
10/25/24 10/25/24 10/25/24
02:46 09:32 15:00
Troponin I 9.430 H* 7.620 H* Cancelled
10/25/24
21:00
Troponin I Cancelled
Vital Signs and I&O:
Vital Signs
Temp Pulse Resp BP Pulse Ox
97.7 F 79 18 98/56 93
10/27/24 07:36 10/27/24 06:00 10/27/24 07:36 10/27/24 04:15 10/27/24 07:36
Vital Signs
Temp Pulse Resp BP Pulse Ox
97.7 F 79 18 98/56 93
10/27/24 07:36 10/27/24 06:00 10/27/24 07:36 10/27/24 04:15 10/27/24 07:36
Intake & Output
10/25/24 10/26/24 10/27/24 10/28/24
06:59 06:59 06:59 06:59
Intake Total 529 / 529
Balance 529 / 529
Physical Exam
Physical Exam
Elderly woman in bed resting comfortably
Regular rate and rhythm normal S1 and S2 no S3 no S4 grade 1/6 apical holosystolic murmur. PMI is laterally and inferiorly displaced.
Lungs are clear to auscultation bilaterally without wheezes rales or rhonchi
Extremities show +1 pretibial edema bilaterally
Abdomen soft nontender nondistended with normoactive bowel sounds
[2024-10-27 07:44] LABS: Glucose - Point of Care 97 mg/dl (70-99)
[2024-10-27] MEDS: SPIRIVA RESPIMAT 2.5 MCG 2 PUFF INH (08:37)
[2024-10-27] MEDS: SYMBICORT 160/4.5 MCG INHALER 2 PUFF INH ×2 (08:37→19:46)
[2024-10-27] MEDS: SYNTHROID 75 MCG PO (09:00)
--- NOTE | 2024-10-27 09:03 | W.PN.HOSP.TC ---
Today's Communication/Plan
-
Hold diuretics
Follow creatinine
Continue IV iron
Erythropoietin level pending
Assessment / Plan
Assessment / Plan
74-year-old female with chest pain patient was hospitalized from 09/26/2024 to 10/05/2024 with CHF. Patient underwent staged PCI during that admission with PTCA and stent placement to LAD and RCA. Now comes back with chest pain patient was taken to
[facility]. Troponin was elevated and placed on IV heparin. Echo showed EF of 20% she requested transfer to [place] where she has had multiple catheterizations.
Echo 11-17-mild concentric LVH. EF 27%. Global hypokinesis with regional wall motion abnormality. Severely hypokinetic to akinetic septum. Small to moderate inferolateral pericardial effusion without hemodynamic compromise.
Cardiac cath September 2024-20% stenosis of LM. LAD proximal to mid heavily calcified with 50% followed by 95% stenosis at the second diagonal stents. First diagonal ostial 70% stenosis. Left circumflex ostial 70% stenosis. RCA mid 80% stenosis.
Status post proximal to mid overlapping drug-eluting stents on 09/29/2024. Status post 3 overlapping drug-eluting stents to proximal to mid RCA 10/02/2024.
EKG reviewed by me-sinus rhythm with PACs, left axis deviation
CVS: S1-S2 normal
Chest: CTA B/L
Abdomen: Soft, NT / Bowel sounds present
Extremities: No edema
# Non-STEMI
History of coronary disease with previous stents in 2004 at [place] and also September 2024 at [facility] as above.
Recent LAD and RCA stents in September 2024 at [facility]
Troponin peaked to 9.4
Cath 10-25-24 with evidence of completed LAD infarct in the apical area. Medical management recommended
Continue IV heparin till 8 PM and changed to Eliquis
Continue aspirin, Plavix,Coreg.
Statin intolerant
PCSK9 inhibitors need to be considered as outpatient
Cardiology following
# Chronic HFrEF
Ischemic cardiomyopathy with ejection fraction 20 to 25%
Much pressure on cath 25 with LVEDP of 36
Lasix to be held secondary to elevated creatinine
Hold Aldactone secondary to low blood pressure, continue Coreg, hold Farxiga with KELSEY
Not on JOSSELYN inhibitor/ARB or Arni secondary to renal function
Intake output charting and daily weights
# Asthma/COPD
Chronic hypoxic respiratory failure on 3 L of oxygen at home
Continue Breztri or any equivalents, azelastine, albuterol, fluticasone, as needed guaifenesin, montelukast.
# CKD stage III
Follow creatinine-1.9 today
Nephrology evaluation appreciated
# Iron deficiency anemia-continue replacement. Patient was seen by GI during admission here in September and endoscopy held at that time. Needs outpatient GI follow-up
IV iron ordered for iron deficiency anemia
check Erythropetin level
# Scleroderma/Raynaud's-continue prednisone and Plaquenil( Followed with Rheum in [facility] now sees Rheum at [place]?)
# Hypothyroidism-continue levothyroxine 75 mcg daily
# GERD-continue PPI, Carafate
Swallowing difficulty only with aspirin?-Outpatient GI evaluation discussed with pt.( Has seen and had an EGD at the [facility] in [facility])
# Depression and anxiety-continue Lexapro and Ativan
# History of PE on Eliquis as outpatient
# History of pericarditis and pericardial effusion-continue colchicine
# Neuropathy NOS-continue gabapentin
# Sleep apnea-continue CPAP at 8 cm H2O( Follows with Dr.Patel Motta)
# History of pleural effusion requiring thoracentesis
# History of Arnett's palsy
# History of breast cancer with history of mastectomy on the right side with rectus flap reconstruction, chemo and radiation
# Hemorrhoids/IBS
# Patient is a [employer]- Refuses blood if needed.
# Over weight BMI 29.4
# Non-smoker
# DVT prophylaxis-on Eliquis as outpatient currently on hold. Continue IV heparin
# Full code
D/W RN at bed side
Part of this note was created using voice recognition system. Occasional wrong word or��sound alike� substitutions may have inadvertently occurred due to the inherent limitations of voice recognition software. If noted kindly bring it to my
attention for correction.
Anticipated Discharge: 24 - 48 hours
Subjective/Interval History
-
Date of Service: October 27, 2024
Objective Data
-
Labs:
Laboratory Results
10/27/24
04:27
WBC 10.2
Hgb 8.6 L
Hct 28.6 L
Plt Count 279
Sodium 139
Potassium 4.6
Chloride 102
Carbon Dioxide 29
BUN 39 H
Creatinine 1.9 H
Glucose 92
Calcium 10.0
Vital Signs:
Vital Signs
Temp Pulse Resp BP Pulse Ox
97.7 F 75 18 94/50 94
10/27/24 07:36 10/27/24 08:00 10/27/24 08:42 10/27/24 07:40 10/27/24 08:42
I&O
10/26/24 10/27/24 10/28/24
06:59 06:59 06:59
Intake Total 529 / 529
Balance 529 / 529
[2024-10-27] MEDS: CARAFATE SUSPENSION 1 GM PO ×2 (09:24→15:05)
[2024-10-27] MEDS: DELTASONE 7.5 MG PO (10:49)
[2024-10-27] MEDS: LEXAPRO 5 MG PO (10:49)
[2024-10-27] MEDS: SINGULAIR 10 MG PO (10:50)
[2024-10-27] MEDS: COLCHICINE 0.6 MG PO (10:50)
[2024-10-27] MEDS: LEXAPRO 20 MG PO (10:50)
[2024-10-27] MEDS: COREG 3.125 MG PO ×2 (10:50→20:35)
[2024-10-27] MEDS: PLAQUENIL 400 MG PO (10:50)
[2024-10-27] MEDS: ZYRTEC 10 MG PO (10:50)
[2024-10-27] MEDS: IMDUR (EXTENDED RELEASE) 30 MG PO (10:50)
[2024-10-27] MEDS: PLAVIX 75 MG PO (10:51)
[2024-10-27] MEDS: ELIQUIS 5 MG PO ×2 (10:51→20:34)
[2024-10-27] MEDS: FARXIGA PO (10:51)
[2024-10-27] MEDS: PROTONIX 40 MG PO (10:51)
--- NOTE | 2024-10-27 13:32 | CON.ONC ---
Consultation
-
Date Consultation Requested: 10/26/24
Date Consultation Performed: 10/27/24
Requesting Provider: Dr Rony Samuels
Performing Provider: Dr Renita Kang
Reason for Consultation: anemia, Islam
Impression
Impression
NSTEMI, CAD
Iron def anemia
CKD3
h/o breast cancer
Scleroderma
Plan
Plan
Continue IV iron
With recurrent NSTEMI/stent occlusions, will hold off on RUPINDER -- too risky from a CV standpoint
Minimize blood draws, use pediatric collection tubes if possible
Eliquis/antiplatelet therapy per cardiology
Will arrange outpatient heme/onc f/u with me to monitor CBC, iron studies, breast cancer surveillance, etc.
She'll likely benefit from GI evalaution as outpatient - she could have GAVE in the setting of scleroderma to explain her iron def.
Patient History
History of Present Illness
This is a 74 yo F with recent admissions here and [facility] for NSTEMI. She underwent C with angioplasty/stents in mid-September 2024. She had recurrent chest pain a few days ago, returned to [facility], and was transferred to in the setting of rising
troponins. She was found to have in-stent occlusion.
Labs are noted for microcytic anemia, with iron deficiency. She's getting IV iron currently. She is Buddhist.
She has scleroderma, notes some upper GI symptoms and h/o gastric polyps. No routine GI f/u. No signs of GI bleeding.
She has a h/o breast cancer, treated with chemo in the past with Dr. Hess, who's no longer in ID.
Past-Medical/Surgical History
Past Medical History
Past Medical History: Reports Other
Additional Past Medical History:
Coronary artery disease
Chronic kidney disease stage 3b
Scleroderma
Raynaud's phenomenon
COPD
Chronic hypoxic respiratory failure
Asthma
History of pulmonary embolism
Chronic coagulopathy with Eliquis
Chronic HFrEF
Pericarditis
Pericardial effusion
History of pleural effusion status post thoracentesis
Neuropathy
Hypothyroidism
Mood disorder
Obesity
Breast cancer
LOUISE on CPAP
Past Surgical History: Reports Other
Additional Past Surgical History:
Breast cancer status post mastectomy and chemoradiation
PTCA with Stents
Social History
Tobacco: Non-smoker
Alcohol: Occasional (Very rare.)
Family History
Family History: Not pertinent
Patient Medication
�Medication �Instructions �Recorded �Confirmed �Last Taken �Type
albuterol sulfate 90 mcg/actuation 2 puff inhalation Q6H PRN COPD 09/26/24 10/25/24 Unknown History
aerosol inhaler
apixaban 5 mg tablet (Eliquis) 5 mg PO BID 09/26/24 10/25/24 09/23/24 11:30 History
azelastine 137 mcg (0.1 %) nasal 1 spray intranasal BID 09/26/24 10/25/24 09/25/24 11:30 History
spray
budesonide 160 mcg-glycopyr 9 2 inh inhalation BID 09/26/24 10/25/24 09/25/24 21:00 History
mcg-formot 4.8 mcg/actuation HFA
inhaler (Breztri Aerosphere)
carvedilol 3.125 mg tablet 3.125 mg PO BID 09/26/24 10/25/24 09/25/24 21:30 History
cetirizine 10 mg tablet 10 mg PO DAILY 09/26/24 10/25/24 09/25/24 11:30 History
clopidogrel 75 mg tablet (Plavix) 75 mg PO DAILY 09/26/24 10/25/24 09/26/24 08:37 History
colchicine 0.6 mg tablet 0.6 mg PO DAILY 09/26/24 10/25/24 09/25/24 11:30 History
cyclobenzaprine 10 mg tablet 10 mg PO HS 09/26/24 10/25/24 09/25/24 21:00 History
dexlansoprazole 60 mg 60 mg PO DAILY 09/26/24 10/25/24 09/25/24 11:30 History
capsule,biphase delayed release
escitalopram oxalate 20 mg tablet 20 mg PO DAILY 09/26/24 10/25/24 09/25/24 11:30 History
escitalopram oxalate 5 mg tablet 5 mg PO DAILY 09/26/24 10/25/24 09/25/24 11:30 History
fluticasone propionate 50 2 spray intranasal BID 09/26/24 10/25/24 09/25/24 11:30 History
mcg/actuation nasal
spray,suspension
gabapentin 300 mg capsule 300 mg PO HS 09/26/24 10/25/24 09/25/24 21:00 History
guaifenesin 600 mg tablet, 600 mg PO BID 09/26/24 10/25/24 09/25/24 21:00 History
extended release 12 hr
hydroxychloroquine 400 mg tablet 400 mg PO DAILY 09/26/24 10/25/24 09/25/24 11:30 History
levothyroxine 75 mcg tablet 75 mcg PO DAILY 09/26/24 10/25/24 09/25/24 11:30 History
lorazepam 1 mg tablet 0.5 mg PO HS PRN anxiety 09/26/24 10/25/24 09/25/24 21:00 History
montelukast 10 mg tablet 10 mg PO DAILY 09/26/24 10/25/24 09/25/24 11:30 History
multivitamin-ferrous 1 tab PO DAILY 09/26/24 10/25/24 09/25/24 11:30 History
fumarate-folic acid 18 mg-400 mcg
tablet (Centrum Women)
nitroglycerin 0.4 mg sublingual 0.4 mg sublingual Q5-15M PRN Chest 09/26/24 10/25/24 Unknown History
tablet pain
pantoprazole 40 mg tablet,delayed 40 mg PO DAILY 09/26/24 10/25/24 09/25/24 11:30 History
release
spironolactone 25 mg tablet 25 mg PO DAILY 09/26/24 10/25/24 09/25/24 11:30 History
sucralfate 100 mg/mL oral 10 ml PO AC 09/26/24 10/25/24 09/25/24 09:00 History
suspension
vitamin B complex 1 tab PO DAILY 09/26/24 10/25/24 09/25/24 11:30 History
prednisone 7.5 mg PO DAILY 09/28/24 10/25/24 Unknown History
dapagliflozin propanediol 10 mg 10 mg PO DAILY #30 tabs 10/05/24 10/25/24 Unknown Rx
tablet
furosemide 40 mg tablet 40 mg PO BID AT 0800,1600 #60 tabs 10/05/24 10/25/24 Unknown Rx
Active Medications
Generic Name Dose Route Start Last Admin
Trade Name Freq PRN Reason Stop Dose Admin
Acetaminophen 650 mg 10/25/24 02:03
Acetaminophen 325 Mg Tablet PO 11/22/24 02:02
Q4HPRN PRN
Mild Pain / Temp > 101
Albuterol Sulfate 2.5 mg 10/25/24 02:03
Albuterol Nebs 2.5 Mg/3 Ml Ampul INH
R Q4HPRN PRN
SOB
Protocol
Apixaban 5 mg 10/26/24 20:00 10/27/24 10:51
Apixaban (Eliquis) 5 Mg Tablet PO 11/23/24 19:59 5 mg
BID RICHARD Administration
Budesonide/Formoterol Fumarate 2 puff 10/25/24 08:00 10/27/24 08:37
Symbicort Inhaler 160/4.5 INH 11/22/24 07:59 2 puff
R BID RICHARD Administration
Carvedilol 3.125 mg 10/25/24 08:00 10/27/24 10:50
Carvedilol 3.125 Mg Tablet PO 11/22/24 07:59 3.125 mg
BID RICHARD Administration
Cetirizine HCl 10 mg 10/25/24 08:00 10/27/24 10:50
Cetirizine Hcl 10 Mg Tablet PO 11/22/24 07:59 10 mg
DAILY RICHARD Administration
Clopidogrel Bisulfate 75 mg 10/26/24 08:00 10/27/24 10:51
Clopidogrel 75 Mg Tablet PO 11/23/24 07:59 75 mg
DAILY RICHARD Administration
Colchicine 0.6 mg 10/25/24 08:00 10/27/24 10:50
Colchicine 0.6 Mg Tablet PO 11/22/24 07:59 0.6 mg
DAILY RICHARD Administration
Cyclobenzaprine HCl 10 mg 10/25/24 22:00 10/26/24 22:04
Cyclobenzaprine 10 Mg Tablet PO 11/22/24 21:59 10 mg
HS RICHARD Administration
Dapagliflozin 10 mg 10/25/24 08:00 10/27/24 10:51
Dapagliflozin (Farxiga) 10 Mg Tablet PO 11/22/24 07:59 Not Given
On Hold: 10/27/24 09:05 DAILY RICHARD
Dextrose 12.5 grams 10/25/24 02:03
Dextrose 50% (0.5 Grams/Ml) 50 Ml Syringe IV 11/22/24 02:02
[id number] PRN
hypoglycemia
Protocol
Escitalopram Oxalate 20 mg 10/25/24 08:00 10/27/24 10:50
Escitalopram 20 Mg Tablet PO 11/22/24 07:59 20 mg
DAILY RICHARD Administration
Escitalopram Oxalate 5 mg 10/25/24 08:00 10/27/24 10:49
Escitalopram 5 Mg Tablet PO 11/22/24 07:59 5 mg
DAILY RICHARD Administration
Ferrous Sulfate 325 mg 10/25/24 08:00 10/26/24 09:01
Ferrous Sulfate 325 Mg Tablet PO 11/22/24 07:59 325 mg
On Hold: 10/26/24 10:21 BID RICHARD Administration
Gabapentin 300 mg 10/25/24 22:00 10/26/24 22:04
Gabapentin 300 Mg Capsule PO 11/22/24 21:59 300 mg
HS RICHARD Administration
Glucagon 1 mg 10/25/24 02:03
Glucagon 1 Mg Vial IM 11/22/24 02:02
PRN PRN
hypoglycemia
Protocol
Hydroxychloroquine Sulfate 400 mg 10/25/24 08:00 10/27/24 10:50
Hydroxychloroquine 200 Mg Tablet PO 11/22/24 07:59 400 mg
DAILY RICHARD Administration
Ferric Sodium Gluconate 110 mls @ 110 mls/hr 10/26/24 14:00 10/26/24 17:05
Complex 125 mg/ Sodium IV 10/30/24 14:59 110 mls
Chloride DAILY@1400 RICHARD Administration
Insulin Aspart 0 units 10/25/24 07:30 10/27/24 09:17
Insulin Aspart Low Resistance 300 Units/3 Ml Pen.Injctr SC 11/22/24 07:29 Not Given
AC RICHARD
Protocol
Isosorbide Mononitrate 30 mg 10/25/24 08:00 10/27/24 10:50
Isosorbide Mononitrate 30 Mg Extended Release Tablet PO 11/22/24 07:59 30 mg
DAILY RICHARD Administration
Levothyroxine Sodium 75 mcg 10/25/24 06:00 10/27/24 09:00
Levothyroxine 75 Mcg Tablet PO 11/22/24 05:59 75 mcg
DAILY @ 0600 RICHARD Administration
Lorazepam 0.5 mg 10/25/24 02:07 10/26/24 22:04
Lorazepam 0.5 Mg Tablet PO 11/22/24 02:06 0.5 mg
HS PRN Administration
anxiety
Montelukast Sodium 10 mg 10/25/24 08:00 10/27/24 10:50
Montelukast Sodium 10 Mg Tablet PO 11/22/24 07:59 10 mg
DAILY RICHARD Administration
Morphine Sulfate 2 mg 10/25/24 02:03
Morphine 2 Mg/Ml Syringe IV 11/08/24 02:02
Q4HPRN PRN
Severe Pain
Nitroglycerin 0.4 mg 10/25/24 02:03
Nitroglycerin 0.4 Mg Sl Tablet SL 11/22/24 02:02
[id number] PRN
Chest Pain
Pantoprazole Sodium 40 mg 10/25/24 08:00 10/27/24 10:51
Pantoprazole 40 Mg Delayed Release Tablet PO 11/22/24 07:59 40 mg
DAILY RICHARD Administration
Prednisone 7.5 mg 10/25/24 08:00 10/27/24 10:49
Prednisone 2.5 Mg Tablet PO 11/22/24 07:59 7.5 mg
DAILY RICHARD Administration
Sodium Chloride 0 flush 10/25/24 03:00 10/26/24 15:49
Sodium Chloride 0.9% (Flush) Syringe IV 11/22/24 02:59 1 flush
PER PROTOCOL RICHARD Administration
Spironolactone 25 mg 10/25/24 08:00 10/26/24 09:01
Spironolactone 25 Mg Tablet PO 11/22/24 07:59 Not Given
On Hold: 10/26/24 09:40 DAILY RICHARD
Sucralfate 1 gm 10/25/24 07:30 10/27/24 09:24
Sucralfate (Carafate) 1 Gm/10 Ml Cup PO 11/22/24 07:29 1 gm
AC RICHARD Administration
Tiotropium [place] 2 puff 10/25/24 08:00 10/27/24 08:37
Tiotropium (Spiriva Respimat) 2.5 Mcg Inhaler INH 11/22/24 07:59 2 puff
R DAILY RICHARD Administration
Review of Systems
-
All Other Systems: Not reviewed unless documented
Physical Exam
-
General: Well Developed, Well Nourished, No Apparent Distress and Comfortable
HEENT: Negative Jaundice
Musculoskeletal: No Clubbing, No Cyanosis and No Edema
Psych: Calm and Intact Judgement/Insight
Labs
Lab Results
WBC 10.2 10^3/uL (4.8-10.8) 10/27/24 04:27
RBC 3.47 10^6/uL (4.20-5.40) L 10/27/24 04:27
Hgb 8.6 g/dL (12.0-16.0) L 10/27/24 04:
Hct 28.6 % (37.0-47.0) L 10/27/24 04:
MCV 82.4 fL (81.0-99.0) 10/27/24 04:27
MCH 24.8 pg (27.0-31.0) L 10/27/24 04:
MCHC 30.1 g/dL (33.0-37.0) L 10/27/24 04:27
RDW 16.3 % (11.5-14.5) H 10/27/24 04:27
Plt Count 279 10^3/uL (130-400) 10/27/24 04:27
MPV 10.0 fL (7.4-10.4) 10/27/24 04:27
Creatinine 1.9 mg/dL (0.6-1.0) H 10/27/24 04:27
Vital Signs
Vital Signs
Temp Pulse Resp BP Pulse Ox
97.7 F 82 16 99/58 92
10/27/24 11:33 10/27/24 11:33 10/27/24 11:33 10/27/24 11:30 10/27/24 11:33
[2024-10-27 14:14] LABS: Glucose - Point of Care 94 mg/dl (70-99)
[2024-10-27] MEDS: FERRLECIT 110 MG IV (15:05)
[2024-10-27] MEDS: FLUSH (NSS) 2 FLUSH IV (15:06)
--- NOTE | 2024-10-27 15:46 | W.PN.NEPH.PH ---
Today's Communication / Plan
-
Follow BMP
Assessment/Plan
-
74y F with PMH significant for ASCVD, CHF, COPD, CKD and scleroderma who presents to as transfer from [facility] where she was hospitalized for NSTEMI. Patient was recently hospitalized at from 09/26 - 10/05 for ASCVD and CHF. She underwent staged PCI
during that admission with PTCA and stent placement to the LAD and RCA. Patient states that she was feeling well following that admission until this past Wednesday evening when she developed severe substernal chest pain with radiation into the R arm.
Prior admissions to [facility] for pericarditis and pericardial effusion which was not drained (on colchicine).
Renal consult for PATRIA prevention in the setting of elevated creatinine.
Discharge's previous admission with the creatinine of 1.6 remains at 1 point
Impression.
Chronic kidney disease baseline creatinine 1.6
NSTEMI 10/24
Coronary artery disease requiring cardiac catheterization stenting LAD 09/29, RCA 10/02
Severe COPD on 3 L oxygen at home
Pericarditis/pericardial effusion, chronic
Scleroderma unknown if limited or systemic
Rheumatoid arthritis
Heart failure reduced ejection fraction 27%= 10/25
History of hypercalcemia
History of pulmonary embolism
History of breast cancer right, in remission
Plan.
Holding Lasix at this time as she is on baseline O2 therapy at home
She still requires additional diuresis however but given rising creatinine stable respiratory status I will defer this for 24 to 48 hours
Rising creatinine likely due to contrast nephropathy
Follow BMP
Holding SGLT2 inhibitor
-
-
Date of Service: October 27, 2024
CC / HPI / ROS
-
Chief Complaint:
KELSEY
History of Present Illness:
Presents with chest pain with significant history of CAD and elevated creatinine
Hemoglobin stable 8.6
KELSEY/creatinine worse at 1.9
Status post cardiac catheterization 10-25-24
Weights appear to be unchanged
Review of Systems:
No chest pain or shortness of breath
Labs
-
Labs:
WBC 10.2 10^3/uL (4.8-10.8) 10/27/24 04:27
RBC 3.47 10^6/uL (4.20-5.40) L 10/27/24 04:27
Hgb 8.6 g/dL (12.0-16.0) L 10/27/24 04:27
Hct 28.6 % (37.0-47.0) L 10/27/24 04:27
Plt Count 279 10^3/uL (130-400) 10/27/24 04:27
Sodium 139 mmol/L (135-145) 10/27/24 04:27
Potassium 4.6 mmol/L (3.5-5.1) 10/27/24 04:27
Chloride 102 mmol/L (98-107) 10/27/24 04:27
Carbon Dioxide 29 mmol/L (22-30) 10/27/24 04:27
BUN 39 mg/dl (7-17) H 10/27/24 04:27
Creatinine 1.9 mg/dL (0.6-1.0) H 10/27/24 04:27
eGFR 27.54 10/27/24 04:27
Glucose 92 mg/dl (70-99) 10/27/24 04:27
Calcium 10.0 mg/dl (8.4-10.2) 10/27/24 04:27
Hup-D-Vszhptdyvvy Pept 7630 pg/ml 10/25/24 09:32
Physical Exam
-
Vital Signs:
Vital Signs
Temp Pulse Resp BP Pulse Ox
97.7 F 82 16 99/58 92
10/27/24 11:33 10/27/24 11:33 10/27/24 11:33 10/27/24 11:30 10/27/24 11:33
Cardiovascular:: Regular rate and rhythm
Respiratory:: Bilateral: Coarse
Lung Excursion:: Normal
Abdomen:: Nontender and Soft
Bowel Sounds:: Normal
Extremity Edema:: None: Bilateral:
[2024-10-27 17:05] LABS: Glucose - Point of Care 107 mg/dl (70-99)
[2024-10-27] MEDS: CARAFATE SUSPENSION PO (17:11)
[2024-10-27 20:12] LABS: Glucose - Point of Care 104 mg/dl (70-99)
[2024-10-27] MEDS: NEURONTIN 300 MG PO (22:19)
[2024-10-27] MEDS: FLEXERIL 10 MG PO (22:19)
[2024-10-27] MEDS: ATIVAN 0.5 MG PO (22:23)
[2024-10-28] VITALS (11 sets, daily range): BP systolic 89–113; BP diastolic 52–65; PULSE 75–82; BMI 29.2
--- NOTE | 2024-10-28 01:39 | PTCARENOTE ---
Assumed care of patient at 1900, aaox3. denies any cp/sob. BP stable. SR on tele monitoring Hr 80s. independent in the room. call benz within reach.
[2024-10-28] MEDS: SYNTHROID 75 MCG PO (04:42)
[2024-10-28 04:44] LABS: Hematocrit 26.8 % (37.0-47.0); Hemoglobin 7.9 g/dL (12.0-16.0); Mean Corp Hgb Conc. 29.5 g/dL (33.0-37.0); Mean Corpuscular Volume 83.0 fL (81.0-99.0); Platelet Count 241 10^3/uL (130-400); Red Cell Dist. Width 16.5 % (11.5-14.5)
[2024-10-28 05:06] LABS: Blood Urea Nitrogen 35 mg/dl (7-17); Calcium 10.2 mg/dl (8.4-10.2); Carbon Dioxide 27 mmol/L (22-30); Chloride 105 mmol/L (98-107); Estimated Creatinine Clearance 32 ml/min; Glucose 90 mg/dl (70-99); Potassium 4.6 mmol/L (3.5-5.1); Sodium 137 mmol/L (135-145); eGFR 31.47
[2024-10-28] MEDS: SPIRIVA RESPIMAT 2.5 MCG 2 PUFF INH (07:54)
[2024-10-28] MEDS: SYMBICORT 160/4.5 MCG INHALER 2 PUFF INH ×2 (07:54→19:47)
[2024-10-28] MEDS: CARAFATE SUSPENSION 1 GM PO ×3 (07:59→16:50)
[2024-10-28] MEDS: LEXAPRO 20 MG PO (08:02)
[2024-10-28] MEDS: TYLENOL 650 MG PO (08:03)
[2024-10-28] MEDS: ELIQUIS 5 MG PO ×2 (08:03→20:05)
[2024-10-28] MEDS: SINGULAIR 10 MG PO (08:03)
[2024-10-28] MEDS: PLAVIX 75 MG PO (08:03)
[2024-10-28] MEDS: IMDUR (EXTENDED RELEASE) 30 MG PO (08:03)
[2024-10-28] MEDS: ZYRTEC 10 MG PO (08:04)
[2024-10-28] MEDS: COLCHICINE 0.6 MG PO (08:04)
[2024-10-28] MEDS: LEXAPRO 5 MG PO (08:04)
[2024-10-28] MEDS: DELTASONE 7.5 MG PO (08:04)
[2024-10-28] MEDS: PLAQUENIL 400 MG PO (08:04)
[2024-10-28] MEDS: PROTONIX 40 MG PO (08:04)
[2024-10-28 08:09] LABS: Glucose - Point of Care 77 mg/dl (70-99)
[2024-10-28] MEDS: COREG 3.125 MG PO ×2 (08:40→20:05)
--- NOTE | 2024-10-28 09:19 | W.PN.HOSP.TC ---
Today's Communication/Plan
-
Hold Lasix and Farxiga today
Restart oral tomorrow
Continue Eliquis, Coreg, Imdur
EKG
Discharge planning when okay with nephrology and cardiology
Assessment / Plan
Assessment / Plan
74-year-old female with chest pain patient was hospitalized from 09/26/2024 to 10/05/2024 with CHF. Patient underwent staged PCI during that admission with PTCA and stent placement to LAD and RCA. Now comes back with chest pain patient was taken to
[facility]. Troponin was elevated and placed on IV heparin. Echo showed EF of 20% she requested transfer to [place] where she has had multiple catheterizations.
Echo 11-17-24-mild concentric LVH. EF 27%. Global hypokinesis with regional wall motion abnormality. Severely hypokinetic to akinetic septum. Small to moderate inferolateral pericardial effusion without hemodynamic compromise.
Cardiac cath September 2024-20% stenosis of LM. LAD proximal to mid heavily calcified with 50% followed by 95% stenosis at the second diagonal stents. First diagonal ostial 70% stenosis. Left circumflex ostial 70% stenosis. RCA mid 80% stenosis.
Status post proximal to mid overlapping drug-eluting stents on 09/29/2024. Status post 3 overlapping drug-eluting stents to proximal to mid RCA 10/02/2024.
EKG reviewed by me-sinus rhythm with PACs, left axis deviation
CVS: S1-S2 normal
Chest: CTA B/L
Abdomen: Soft, NT / Bowel sounds present
Extremities: No edema
# Non-STEMI
History of coronary disease with previous stents in 2004 at [place] and also September 2024 at [facility] [place] as above.
Recent LAD and RCA stents in September 2024 at [facility]
Troponin peaked to 9.4
Cath 10-25-24 with evidence of completed LAD infarct in the apical area. Medical management recommended
Continue aspirin, Plavix,Coreg.
Statin intolerant
PCSK9 inhibitors need to be considered as outpatient
Cardiology following
Patient has symptoms of heartburn got better with GI medicines however given history will get an EKG
# Chronic HFrEF
Ischemic cardiomyopathy with ejection fraction 20 to 25%
Much pressure on cath 25 with LVEDP of 36
Defer Lasix to nephrology
Hold Aldactone secondary to low blood pressure, continue Coreg, restart Farxiga tomorrow
Not on JOSSELYN inhibitor/ARB or Arni secondary to renal function
Intake output charting and daily weights
# Asthma/COPD
Chronic hypoxic respiratory failure on 3 L of oxygen at home
Continue Breztri or any equivalents, azelastine, albuterol, fluticasone, as needed guaifenesin, montelukast.
# Acute kidney injury CKD stage III
Follow creatinine-1.7 today
Likely contrast-induced nephropathy. Resolving
Nephrology evaluation appreciated
# Iron deficiency anemia-continue replacement. Patient was seen by GI during admission here in September and endoscopy held at that time. Needs outpatient GI follow-up
IV iron ordered for iron deficiency anemia
check Erythropetin level
# Scleroderma/Raynaud's-continue prednisone and Plaquenil( Followed with Rheum in [facility] now sees Rheum at [place]?)
# Hypothyroidism-continue levothyroxine 75 mcg daily
# GERD-continue PPI, Carafate
Swallowing difficulty only with aspirin?-Outpatient GI evaluation discussed with pt.( Has seen and had an EGD at [facility] time in [facility])
# Depression and anxiety-continue Lexapro and Ativan
# History of PE on Eliquis as outpatient
# History of pericarditis and pericardial effusion-continue colchicine
# Neuropathy NOS-continue gabapentin
# Sleep apnea-continue CPAP at 8 cm H2O( Follows with Dr.Patel Motta)
# History of pleural effusion requiring thoracentesis
# History of Arnett's palsy
# History of breast cancer with history of mastectomy on the right side with rectus flap reconstruction, chemo and radiation
# Hemorrhoids/IBS
# Patient is a Sikhism- Refuses blood if needed.
# Over weight BMI 29.4
# Non-smoker
# DVT prophylaxis-on Eliquis as outpatient currently on hold. Continue IV heparin
# Full code
D/W RN at bed side
Discussed with cardiology
Part of this note was created using voice recognition system. Occasional wrong word or��sound alike� substitutions may have inadvertently occurred due to the inherent limitations of voice recognition software. If noted kindly bring it to my
attention for correction.
Anticipated Discharge: Within 24 hours
Subjective/Interval History
-
Date of Service: October 28, 2024
Objective Data
-
Labs:
Laboratory Results
10/28/24
04:30
WBC 8.6
Hgb 7.9 L
Hct 26.8 L
Plt Count 241
Sodium 137
Potassium 4.6
Chloride 105
Carbon Dioxide 27
BUN 35 H
Creatinine 1.7 H
Glucose 90
Calcium 10.2
Vital Signs:
Vital Signs
Temp Pulse Resp BP Pulse Ox
97.6 F 90 16 106/62 100
10/28/24 08:11 10/28/24 08:40 10/28/24 08:11 10/28/24 08:40 10/28/24 08:11
I&O
10/27/24 10/28/24 10/29/24
06:59 06:59 06:59
Intake Total 529 / 529 240 / 240
Output Total 500 / 500 850 / 850
Balance 529 / 529 -260 / -260 -850 / -850
--- NOTE | 2024-10-28 09:42 | W.PN.NEPH.PH ---
Today's Communication / Plan
-
follow BMP
Assessment/Plan
-
74y F with PMH significant for ASCVD, CHF, COPD, CKD and scleroderma who presents to as transfer from [facility] where she was hospitalized for NSTEMI. Patient was recently hospitalized at from 09/26 - 10/05 for ASCVD and CHF. She underwent staged PCI
during that admission with PTCA and stent placement to the LAD and RCA. Patient states that she was feeling well following that admission until this past Wednesday evening when she developed severe substernal chest pain with radiation into the R arm.
Prior admissions to [facility] for pericarditis and pericardial effusion which was not drained (on colchicine).
Renal consult for PATRIA prevention in the setting of elevated creatinine.
Discharge's previous admission with the creatinine of 1.6 remains at 1 point
Impression.
Chronic kidney disease baseline creatinine 1.6
NSTEMI 10/24
Coronary artery disease requiring cardiac catheterization stenting LAD 09/29, RCA 10/02
Severe COPD on 3 L oxygen at home
Pericarditis/pericardial effusion, chronic
Scleroderma unknown if limited or systemic
Rheumatoid arthritis
Heart failure reduced ejection fraction 27%= 10/25
History of hypercalcemia
History of pulmonary embolism
History of breast cancer right, in remission
Plan.
Holding Lasix at this time as she is on baseline O2 therapy at home
She still requires additional diuresis however but given rising creatinine stable respiratory status I will defer this today
restart lasix tomorrow 40mg po BID (OP dose)
Follow BMP
Holding SGLT2 inhibitor, can restart tomorrow if Cr lower
IV iron course
-
-
Date of Service: October 28, 2024
CC / HPI / ROS
-
Chief Complaint:
KELSEY
History of Present Illness:
Presents with chest pain with significant history of CAD and elevated creatinine
Hemoglobin stable 7.9
KELSEY/creatinine down to 1.7
Status post cardiac catheterization 10-25-24
Weights slightly lower
Review of Systems:
No chest pain or shortness of breath
Labs
-
Labs:
WBC 8.6 10^3/uL (4.8-10.8) 10/28/24 04:30
RBC 3.23 10^6/uL (4.20-5.40) L 10/28/24 04:30
Hgb 7.9 g/dL (12.0-16.0) L 10/28/24 04:30
Hct 26.8 % (37.0-47.0) L 10/28/24 04:30
Plt Count 241 10^3/uL (130-400) 10/28/24 04:30
Sodium 137 mmol/L (135-145) 10/28/24 04:30
Potassium 4.6 mmol/L (3.5-5.1) 10/28/24 04:30
Chloride 105 mmol/L (98-107) 10/28/24 04:30
Carbon Dioxide 27 mmol/L (22-30) 10/28/24 04:30
BUN 35 mg/dl (7-17) H 10/28/24 04:30
Creatinine 1.7 mg/dL (0.6-1.0) H 10/28/24 04:30
eGFR 31.47 10/28/24 04:30
Glucose 90 mg/dl (70-99) 10/28/24 04:30
Calcium 10.2 mg/dl (8.4-10.2) 10/28/24 04:30
Ffp-N-Nrxyqwpibte Pept 7630 pg/ml 10/25/24 09:32
Physical Exam
-
Vital Signs:
Vital Signs
Temp Pulse Resp BP Pulse Ox
97.6 F 90 16 106/62 100
10/28/24 08:11 10/28/24 08:40 10/28/24 08:11 10/28/24 08:40 10/28/24 08:11
Cardiovascular:: Regular rate and rhythm
Respiratory:: Bilateral: CTA
Lung Excursion:: Normal
Abdomen:: Nontender and Soft
Bowel Sounds:: Normal
Extremity Edema:: None: Bilateral:
--- NOTE | 2024-10-28 10:39 | W.PN.CARDCBS ---
Addendum entered and electronically signed by Dominguez Alaniz MD 10/28/24 11:15:
I saw and examined the patient.
The SUPERVISOR TELEPHONE ANSWERING SERVICE or PA's note was reviewed and I agree with the note.
Comment: General: Well developed, well nourished in NAD.
Neck: Supple, no JVD, HJR, carotids +2 B/L, no bruits bilaterally.
Heart: Non displaced PMI, RRR, no murmurs, No S3, S4, no rubs.
Lungs: Scattered rhonchi
Extremities: No clubbing, cyanosis or edema bilaterally.
Neuro: Grossly nonfocal, awake, alert and oriented x3.
She had complaint of chest burning. Different from the pain when she presented. ECG unchanged. Continue to follow for now with medical therapy.
Original Note:
Today's Communication / Plan
-
ECG stable
Cre better
Impression / Plan
-
Primary Border Measurer: Dr. Rodger Bacon of [facility]
Primary Reset Merchandiser: Dr. Jimmie Remy [phone]
Assessment:
Presentation to [facility] 10/22 with CP, RUE pain
Transfer to [facility] 10/25/24
NSTEMI
Acute on chronic HFrEF
Multivessel CAD
Status post LAD PCI 2004 at [facility]
s/p 2 overlapping 2.5 x 30 mm and 2.25 x 30 mm Medtronic [place] drug-eluting stents to LAD 09/29/2024
s/p 3 overlapping Medtronic [place] REBECA to prox to mid RCA 10/02/24ICM, EF 20 to 25%
CKD3B
HTN
HLD
chronic LBBB
COPD on chronic 3L supp O2
History of PE
Chronic OAC with eliquis
History of statin intolerance (paralysis)
Raynaud's syndrome
Scleroderma on chronic steroids
Neuropathy
Hypothyroidism
History of breast cancer s/p mastectomy with reconstruction, chemo, radiation
Obesity
LOUISE on CPAP
Chronic anemia
Episcopalian - will not accept blood transfusions
ECHO 09/26/24: EF 20 to 25% with global hypokinesis, moderate concentric LVH, stage I diastolic dysfunction, mild , small to moderate pericardial effusion posterior to left ventricle without evidence of hemodynamic compromise, ascending aorta
dilation measuring 4.1 cm
Follow-up echo 10/25/2024: EF 27%, mild concentric LVH, global hypokinesis with regional wall motion abnormalities and septum severely hypo to akinetic, small to moderate inferolateral pericardial effusion without hemodynamic compromise
Recommendations:
-Patient with dyspepsia 10/28/24 AM, ECG ordered by hospitalist attending, but remains in SR and no other acute changes.
-Patient with chest pain and NSTEMI on admission. Troponin was 9.43 on admission and trending down thereafter.
-Patient had cardiac cath 10/25/24 and the mid-distal LAD was 100% occluded in the area of stent overlap and previous high-grade in-stent restenosis. The distal vessel fills via faint [id number] collaterals. Patent proximal LAD stent with patent
1st and 2nd diagonal and widely patent RCA stent and elevated right and left ventricular filling pressures. Plan is for medical management for completed apical LAD infarct has been recommended by interventional cardiology.
-Not on aspirin due to Plavix and Eliquis. Of note, patient history of aspirin sensitivity/intolerance with symptoms of severe abd pain, diarrhea, and cold sweats
-Outpatient dose of Plavix 75 mg daily has been continued
-Patient was on heparin gtt, but now back to usual dose of Eliquis 5 mg BID (age 74, wt 83.4 kg)
-Outpatient dose of Coreg 3.125 mg BID has been continued
-New to Imdur ER 30 mg daily that was added while she was at [facility] on 10/23/24
-Outpatient dose of Farxiga 10mg daily has been continued
-Outpatient dose of spironolactone 25mg daily has been continued
-Patient with acute HFrEF, weight is down about 2 lbs this admission with Lasix 40 mg IV BID and now ordered Lasix 40 mg PO BID which was her outpatient dose.
-GDMT as outlined above.
-As an outpatient there will need to be consideration for sudden cardiac risk assessment, consideration for ICD/BREADMAN-D implantation for primary risk reduction
-Chronic anemia, Hgb 7.9 on labs reviewed by me 10/28/24. Has chronic anemias, she is Rastafarian and will not accept blood products
Progress Note - Border Measurer
Subjective
Date of Service: October 28, 2024
Dyspepsia this morning
Objective
Labs:
10/28/24 04:30
10/28/24 04:30
Labs
Hgb 7.9 g/dL (12.0-16.0) L 10/28/24 04:30
Hct 26.8 % (37.0-47.0) L 10/28/24 04:30
Plt Count 241 10^3/uL (130-400) 10/28/24 04:30
APTT Cancelled 10/26/24 17:00
Sodium 137 mmol/L (135-145) 10/28/24 04:30
Potassium 4.6 mmol/L (3.5-5.1) 10/28/24 04:30
BUN 35 mg/dl (7-17) H 10/28/24 04:30
Creatinine 1.7 mg/dL (0.6-1.0) H 10/28/24 04:30
Glucose 90 mg/dl (70-99) 10/28/24 04:30
Troponins
10/25/24 10/25/24
15:00 21:00
Troponin I Cancelled Cancelled
Vital Signs and I&O:
Vital Signs
Temp Pulse Resp BP Pulse Ox
97.6 F 90 16 106/62 100
10/28/24 08:11 10/28/24 08:40 10/28/24 08:11 10/28/24 08:40 10/28/24 08:11
Vital Signs
Temp Pulse Resp BP Pulse Ox
97.6 F 90 16 106/62 100
10/28/24 08:11 10/28/24 08:40 10/28/24 08:11 10/28/24 08:40 10/28/24 08:11
Intake & Output
10/26/24 10/27/24 10/28/24 10/29/24
06:59 06:59 06:59 06:59
Intake Total 529 / 529 240 / 240
Output Total 500 / 500 850 / 850
Balance 529 / 529 -260 / -260 -850 / -850
Physical Exam
Physical Exam
GEN: NAD
LUNGS: RA, no audible wheeze
CV: SR on tele
--- NOTE | 2024-10-28 10:47 | PTCARENOTE ---
Patient woke with a burning sensation epigastric radiating to her back. HOB elevated and pain decreased from a 2 to 6. Carafate, PPI and Tylenol given with complete relief. OOB to chair for breakfast. EKG done. Oxygen 3 liters NC, POX 98%, lungs
CTA. VSS, pain free, walking in room, call benz in reach
[2024-10-28] MEDS: FERRLECIT 110 MG IV (12:55)
[2024-10-28 13:01] LABS: Glucose - Point of Care 89 mg/dl (70-99)
--- NOTE | 2024-10-28 14:15 | PTCARENOTE ---
Patient AO x3.Walking in halls, oxygen 3 liters NC, denies pain or shortness of breath. Left cath site healing open to air. Call benz in reach
[2024-10-28 16:51] LABS: Glucose - Point of Care 101 mg/dl (70-99)
[2024-10-28 20:27] LABS: Glucose - Point of Care 125 mg/dl (70-99)
--- NOTE | 2024-10-28 21:07 | PTCARENOTE ---
Assumed care of the pt at 1900. 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 Pt ambulates to bathroom without difficulty. Call benz within reach.
[2024-10-28] MEDS: ATIVAN 0.5 MG PO (22:31)
[2024-10-28] MEDS: NEURONTIN 300 MG PO (22:31)
[2024-10-28] MEDS: FLEXERIL 10 MG PO (22:31)
[2024-10-29] VITALS (8 sets, daily range): BP systolic 93–102; BP diastolic 51–60; PULSE 72–77; BMI 29.6
[2024-10-29] MEDS: SYNTHROID 75 MCG PO (03:53)
[2024-10-29 04:04] LABS: Hematocrit 26.0 % (37.0-47.0); Hemoglobin 7.7 g/dL (12.0-16.0); Mean Corp Hgb Conc. 29.6 g/dL (33.0-37.0); Mean Corpuscular Volume 83.9 fL (81.0-99.0); Platelet Count 244 10^3/uL (130-400); Red Cell Dist. Width 17.3 % (11.5-14.5)
[2024-10-29 04:22] LABS: Blood Urea Nitrogen 41 mg/dl (7-17); Calcium 10.4 mg/dl (8.4-10.2); Carbon Dioxide 26 mmol/L (22-30); Chloride 106 mmol/L (98-107); Estimated Creatinine Clearance 29 ml/min; Glucose 88 mg/dl (70-99); Potassium 4.5 mmol/L (3.5-5.1); Sodium 139 mmol/L (135-145); eGFR 27.54
[2024-10-29] MEDS: SPIRIVA RESPIMAT 2.5 MCG 2 PUFF INH (07:55)
[2024-10-29] MEDS: SYMBICORT 160/4.5 MCG INHALER 2 PUFF INH ×2 (07:55→19:35)
[2024-10-29] MEDS: CARAFATE SUSPENSION 1 GM PO ×3 (07:56→16:54)
[2024-10-29 08:36] LABS: Glucose - Point of Care 75 mg/dl (70-99)
[2024-10-29] MEDS: PLAVIX 75 MG PO (09:05)
[2024-10-29] MEDS: PLAQUENIL 400 MG PO (09:05)
[2024-10-29] MEDS: ELIQUIS 5 MG PO ×2 (09:05→20:09)
[2024-10-29] MEDS: COLCHICINE 0.6 MG PO (09:05)
[2024-10-29] MEDS: SINGULAIR 10 MG PO (09:06)
[2024-10-29] MEDS: COREG 3.125 MG PO ×2 (09:06→20:09)
[2024-10-29] MEDS: ZYRTEC 10 MG PO (09:06)
[2024-10-29] MEDS: IMDUR (EXTENDED RELEASE) 30 MG PO (09:08)
[2024-10-29] MEDS: DELTASONE 7.5 MG PO (09:09)
[2024-10-29] MEDS: LEXAPRO 5 MG PO (09:10)
[2024-10-29] MEDS: LASIX 40 MG PO ×2 (09:11→15:43)
[2024-10-29] MEDS: LEXAPRO 20 MG PO (09:11)
[2024-10-29] MEDS: PROTONIX 40 MG PO (09:11)
--- NOTE | 2024-10-29 09:13 | W.PN.CARDCBS ---
Today's Communication / Plan
-
Stable cardiology status for discharge
No further chest or back pain
Impression / Plan
-
Primary Manager Utilization Management: Dr. Rodger Bacon of [facility]
Primary Utility Locate Technician: Dr. Jimmie Remy [phone]
Assessment:
Presentation to [facility] 10/22 with CP, RUE pain
Transfer to [facility] 10/25/24
NSTEMI
Acute on chronic HFrEF
Multivessel CAD
Status post LAD PCI 2004 at [facility]
s/p 2 overlapping 2.5 x 30 mm and 2.25 x 30 mm Medtronic [place] drug-eluting stents to LAD 09/29/2024
s/p 3 overlapping Medtronic [place] REBECA to prox to mid RCA 10/02/24ICM, EF 20 to 25%
CKD3B
HTN
HLD
chronic LBBB
COPD on chronic 3L supp O2
History of PE
Chronic OAC with eliquis
History of statin intolerance (paralysis)
Raynaud's syndrome
Scleroderma on chronic steroids
Neuropathy
Hypothyroidism
History of breast cancer s/p mastectomy with reconstruction, chemo, radiation
Obesity
LOUISE on CPAP
Chronic anemia
Buddhist - will not accept blood transfusions
ECHO 09/26/24: EF 20 to 25% with global hypokinesis, moderate concentric LVH, stage I diastolic dysfunction, mild , small to moderate pericardial effusion posterior to left ventricle without evidence of hemodynamic compromise, ascending aorta
dilation measuring 4.1 cm
Follow-up echo 10/25/2024: EF 27%, mild concentric LVH, global hypokinesis with regional wall motion abnormalities and septum severely hypo to akinetic, small to moderate inferolateral pericardial effusion without hemodynamic compromise
Recommendations:
No further chest or back pain
Not on aspirin due to Plavix and Eliquis. Of note, patient history of aspirin sensitivity/intolerance with symptoms of severe abd pain, diarrhea, and cold sweats
Continue Coreg, Imdur, Farxiga, Aldactone for ischemic cardiomyopathy.
Unclear if she was started on JOSSELYN inhibitor or Entresto in the past as likely would not tolerate given low blood pressure
Volume status stable on oral Lasix
As an outpatient there will need to be consideration for sudden cardiac risk assessment, consideration for ICD/SCIENTIST ELECTRONICS-D implantation for primary risk reduction
Chronic anemia, she is Taoism and will not accept blood products
Stable cardiology status for discharge
Progress Note - Manager Utilization Management
Subjective
Date of Service: October 29, 2024
No complaints
Objective
Labs:
10/29/24 03:47
10/29/24 03:47
Labs
Hgb 7.7 g/dL (12.0-16.0) L 10/29/24 03:47
Hct 26.0 % (37.0-47.0) L 10/29/24 03:47
Plt Count 244 10^3/uL (130-400) 10/29/24 03:47
APTT Cancelled 10/26/24 17:00
Sodium 139 mmol/L (135-145) 10/29/24 03:47
Potassium 4.5 mmol/L (3.5-5.1) 10/29/24 03:47
BUN 41 mg/dl (7-17) H 10/29/24 03:47
Creatinine 1.9 mg/dL (0.6-1.0) H 10/29/24 03:47
Glucose 88 mg/dl (70-99) 10/29/24 03:47
Vital Signs and I&O:
Vital Signs
Temp Pulse Resp BP Pulse Ox
98.7 F 81 18 96/53 92
10/29/24 07:49 10/29/24 07:59 10/29/24 07:59 10/29/24 03:27 10/29/24 07:59
Vital Signs
Temp Pulse Resp BP Pulse Ox
98.7 F 81 18 96/53 92
10/29/24 07:49 10/29/24 07:59 10/29/24 07:59 10/29/24 03:27 10/29/24 07:59
Intake & Output
10/27/24 10/28/24 10/29/24 10/30/24
06:59 06:59 06:59 06:59
Intake Total 529 / 529 240 / 240
Output Total 500 / 500 1850 / 1850
Balance 529 / 529 -260 / -260 -1850 / -1850
Physical Exam
Physical Exam
General: Well developed, well nourished in NAD.
Neck: Supple, no JVD, HJR, carotids +2 B/L, no bruits bilaterally.
Heart: Non displaced PMI, RRR, no murmurs, No S3, S4, no rubs.
Lungs: Scattered rhonchi
Extremities: No clubbing, cyanosis or edema bilaterally.
Neuro: Grossly nonfocal, awake, alert and oriented x3.
--- NOTE | 2024-10-29 10:47 | W.PN.NEPH.PH ---
Today's Communication / Plan
-
lasix
Assessment/Plan
-
74y F with PMH significant for ASCVD, CHF, COPD, CKD and scleroderma who presents to as transfer from [facility] where she was hospitalized for NSTEMI. Patient was recently hospitalized at from 09/26 - 10/05 for ASCVD and CHF. She underwent staged PCI
during that admission with PTCA and stent placement to the LAD and RCA. Patient states that she was feeling well following that admission until this past Wednesday evening when she developed severe substernal chest pain with radiation into the R arm.
Prior admissions to [facility] for pericarditis and pericardial effusion which was not drained (on colchicine).
Renal consult for PATRIA prevention in the setting of elevated creatinine.
Discharge's previous admission with the creatinine of 1.6 remains at 1 point
Impression.
Chronic kidney disease baseline creatinine 1.6
NSTEMI 10/24
Coronary artery disease requiring cardiac catheterization stenting LAD 09/29, RCA 10/02
Severe COPD on 3 L oxygen at home
Pericarditis/pericardial effusion, chronic
Scleroderma unknown if limited or systemic
Rheumatoid arthritis
Heart failure reduced ejection fraction 27%= 10/25
History of hypercalcemia
History of pulmonary embolism
History of breast cancer right, in remission
Plan.
restart lasix 40mg po BID (OP dose)
Follow BMP
Holding SGLT2 inhibitor
IV iron course
watch BP, if she stays low with rising Cr, will offer midodrine 2.5mg PO BID
I would not favor dc today
continue colchicine, dose may need to be altered if Cr rises
-
-
Date of Service: October 29, 2024
CC / HPI / ROS
-
Chief Complaint:
KELSEY
History of Present Illness:
Presents with chest pain with significant history of CAD and elevated creatinine
Hemoglobin stable 7.7
KELSEY/creatinine up to 1.9
Status post cardiac catheterization 10-25-24
Weights stable
BP low, fluctuating
Review of Systems:
No chest pain or shortness of breath
Labs
-
Labs:
WBC 9.7 10^3/uL (4.8-10.8) 10/29/24 03:47
RBC 3.10 10^6/uL (4.20-5.40) L 10/29/24 03:47
Hgb 7.7 g/dL (12.0-16.0) L 10/29/24 03:47
Hct 26.0 % (37.0-47.0) L 10/29/24 03:47
Plt Count 244 10^3/uL (130-400) 10/29/24 03:47
Sodium 139 mmol/L (135-145) 10/29/24 03:47
Potassium 4.5 mmol/L (3.5-5.1) 10/29/24 03:47
Chloride 106 mmol/L (98-107) 10/29/24 03:47
Carbon Dioxide 26 mmol/L (22-30) 10/29/24 03:47
BUN 41 mg/dl (7-17) H 10/29/24 03:47
Creatinine 1.9 mg/dL (0.6-1.0) H 10/29/24 03:47
eGFR 27.54 10/29/24 03:47
Glucose 88 mg/dl (70-99) 10/29/24 03:47
Calcium 10.4 mg/dl (8.4-10.2) H 10/29/24 03:47
Oex-C-Cchaedrtdjc Pept 7630 pg/ml 10/25/24 09:32
Physical Exam
-
Vital Signs:
Vital Signs
Temp Pulse Resp BP Pulse Ox
98.7 F 81 18 96/53 92
10/29/24 07:49 10/29/24 07:59 10/29/24 07:59 10/29/24 03:27 10/29/24 07:59
Cardiovascular:: Regular rate and rhythm
Respiratory:: Bilateral: Coarse
Lung Excursion:: Normal
Abdomen:: Nontender and Soft
Bowel Sounds:: Normal
Extremity Edema:: +1: Bilateral:
--- NOTE | 2024-10-29 13:47 | W.PN.HOSP.TC ---
Today's Communication/Plan
-
Start midodrine
Lasix p.o.
Continue IV iron
Follow labs in the morning
If blood pressure was stable and labs are stable consider discharge tomorrow
Assessment / Plan
Assessment / Plan
74-year-old female with chest pain patient was hospitalized from 09/26/2024 to 10/05/2024 with CHF. Patient underwent staged PCI during that admission with PTCA and stent placement to LAD and RCA. Now comes back with chest pain patient was taken to
[facility]. Troponin was elevated and placed on IV heparin. Echo showed EF of 20% she requested transfer to [place] where she has had multiple catheterizations.
Echo 11-17-24-mild concentric LVH. EF 27%. Global hypokinesis with regional wall motion abnormality. Severely hypokinetic to akinetic septum. Small to moderate inferolateral pericardial effusion without hemodynamic compromise.
Cardiac cath September 2024-20% stenosis of LM. LAD proximal to mid heavily calcified with 50% followed by 95% stenosis at the second diagonal stents. First diagonal ostial 70% stenosis. Left circumflex ostial 70% stenosis. RCA mid 80% stenosis.
Status post proximal to mid overlapping drug-eluting stents on 09/29/2024. Status post 3 overlapping drug-eluting stents to proximal to mid RCA 10/02/2024.
EKG reviewed by nv-sinus rhythm with PACs, left axis deviation
CVS: S1-S2 normal
Chest: CTA B/L
Abdomen: Soft, NT / Bowel sounds present
Extremities: No edema
# Non-STEMI
History of coronary disease with previous stents in 2004 at [facility] and also September 2024 at [facility] as above.
Recent LAD and RCA stents in September 2024 at [facility]
Troponin peaked to 9.4
Cath 10-25-24 with evidence of completed LAD infarct in the apical area. Medical management recommended
Continue aspirin, Plavix,Coreg.
Statin intolerant
PCSK9 inhibitors need to be considered as outpatient
Cardiology following
Patient has symptoms of heartburn got better with GI medicines however given history will get an EKG
# Chronic HFrEF
Ischemic cardiomyopathy with ejection fraction 20 to 25%
Much pressure on cath 25 with LVEDP of 36
Lasix p.o. started
Hold Aldactone secondary to low blood pressure, continue Coreg, Farxiga restarted
Midodrine started
Not on JOSSELYN inhibitor/ARB or Arni secondary to renal function
Intake output charting and daily weights
# Asthma/COPD
Chronic hypoxic respiratory failure on 3 L of oxygen at home
Continue Breztri or any equivalents, azelastine, albuterol, fluticasone, as needed guaifenesin, montelukast.
# Acute kidney injury CKD stage III
Follow creatinine-1.9 today
Likely contrast-induced nephropathy. Resolving
Nephrology evaluation appreciated
# Iron deficiency anemia-continue replacement. Patient was seen by GI during admission here in September and endoscopy held at that time. Needs outpatient GI follow-up discussed
IV iron ordered for iron deficiency anemia
Erythropetin level normal
# Scleroderma/Raynaud's-continue prednisone and Plaquenil( Followed with Rheum in [facility] now sees Rheum at [place]?)
# Hypothyroidism-continue levothyroxine 75 mcg daily
# GERD-continue PPI, Carafate
Swallowing difficulty only with aspirin?-Outpatient GI evaluation discussed with pt.( Has seen and had an EGD at [facility] time in [facility])
# Depression and anxiety-continue Lexapro and Ativan
# History of PE on Eliquis as outpatient
# History of pericarditis and pericardial effusion-continue colchicine
# Neuropathy NOS-continue gabapentin
# Sleep apnea-continue CPAP at 8 cm H2O( Follows with Dr.Patel Motta)
# History of pleural effusion requiring thoracentesis
# History of Arnett's palsy
# History of breast cancer with history of mastectomy on the right side with rectus flap reconstruction, chemo and radiation
# Hemorrhoids/IBS
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
# Over weight BMI 29.4
# Non-smoker
# DVT prophylaxis-on Eliquis
# Full code
D/W RN at bed side
Discussed with nephrology
Discussed with patient's granddaughter Ms. Mckinnon and updated. She is aware that patient needs further workup of anemia as outpatient including GI workup endoscopy and colonoscopy
Part of this note was created using voice recognition system. Occasional wrong word or��sound alike� substitutions may have inadvertently occurred due to the inherent limitations of voice recognition software. If noted kindly bring it to my
attention for correction.
Anticipated Discharge: Within 24 hours
Subjective/Interval History
-
Date of Service: October 29, 2024
Objective Data
-
Labs:
Laboratory Results
10/29/24
03:47
WBC 9.7
Hgb 7.7 L
Hct 26.0 L
Plt Count 244
Sodium 139
Potassium 4.5
Chloride 106
Carbon Dioxide 26
BUN 41 H
Creatinine 1.9 H
Glucose 88
Calcium 10.4 H
Vital Signs:
Vital Signs
Temp Pulse Resp BP Pulse Ox
98.7 F 88 20 95/51 92
10/29/24 11:28 10/29/24 08:00 10/29/24 11:28 10/29/24 07:49 10/29/24 07:59
I&O
10/28/24 10/29/24 10/30/24
06:59 06:59 06:59
Intake Total 240 / 240
Output Total 500 / 500 1849 / 1849
Balance -260 / -260 -0 / -1849
[2024-10-29] MEDS: FERRLECIT 110 MG IV (14:35)
--- NOTE | 2024-10-29 16:37 | PTCARENOTE ---
Pt received this am with no c/o of any chest pain. Remains on 3LNC. sat 98%. OOB ad hanh in the room, gait steady.
--- NOTE | 2024-10-29 21:14 | PTCARENOTE ---
Assumed care of the pt @ 1900. Pt is AAOx3 SR on the monitor denies cp. 3 LPM NC in use + productive cough lungs cta CPAP @ [facility]. Pt ambulates to bathroom independently. Call benz within reach.
[2024-10-29] MEDS: NEURONTIN 300 MG PO (22:07)
[2024-10-29] MEDS: ATIVAN 0.5 MG PO (22:07)
[2024-10-29] MEDS: FLEXERIL 10 MG PO (22:07)
[2024-10-30 03:22] VITALS: PULSE 79
[2024-10-30 04:52] VITALS: BP 92/53
[2024-10-30] MEDS: SYNTHROID 75 MCG PO (05:00)
[2024-10-30 05:01] VITALS: BMI 29.2
[2024-10-30 06:08] LABS: Hematocrit 27.4 % (37.0-47.0); Hemoglobin 8.0 g/dL (12.0-16.0); Mean Corp Hgb Conc. 29.2 g/dL (33.0-37.0); Mean Corpuscular Volume 85.9 fL (81.0-99.0); Platelet Count 245 10^3/uL (130-400); Red Cell Dist. Width 18.6 % (11.5-14.5)
[2024-10-30 06:20] LABS: Blood Urea Nitrogen 38 mg/dl (7-17); Calcium 9.6 mg/dl (8.4-10.2); Carbon Dioxide 25 mmol/L (22-30); Chloride 105 mmol/L (98-107); Estimated Creatinine Clearance 32 ml/min; Glucose 85 mg/dl (70-99); Potassium 4.2 mmol/L (3.5-5.1); Sodium 139 mmol/L (135-145); eGFR 31.47
[2024-10-30] MEDS: SPIRIVA RESPIMAT 2.5 MCG 2 PUFF INH (07:59)
[2024-10-30] MEDS: SYMBICORT 160/4.5 MCG INHALER 2 PUFF INH (08:00)
[2024-10-30 08:02] VITALS: BP 101/57
--- NOTE | 2024-10-30 08:23 | W.PN.ONC2 ---
Today's Communication / Plan
-
monitor CBC
Impression
Impression
NSTEMI, CAD
in stent occlusion
Iron def anemia -Hgb 8g/dL today -stable
Jehovah witness
CKD3
h/o breast cancer
Scleroderma on chronic prednisone
Plan
Plan
Continue IV iron
With recurrent NSTEMI/stent occlusions, will hold off on RUPINDER -- too risky from a CV standpoint
Minimize blood draws, use pediatric collection tubes if possible
check B12 and folate
Eliquis/antiplatelet therapy per cardiology
Will arrange outpatient heme/onc f/u with me to monitor CBC, iron studies, breast cancer surveillance, etc.
She'll likely benefit from GI evalaution as outpatient - she could have GAVE in the setting of scleroderma or PUD from chonic prednisoneto explain her iron def.
Subjective/Objective
Subjective
off unit -not seen or examined
chart reviewed
Vital Signs:
Vital Signs
Temp Pulse Resp BP Pulse Ox
97.8 F 78 16 92/53 93
10/30/24 08:04 10/30/24 08:05 10/30/24 08:05 10/30/24 04:52 10/30/24 08:05
Lab Results:
Laboratory Data
WBC 9.0 10^3/uL (4.8-10.8) 10/30/24 05:46
Hgb 8.0 g/dL (12.0-16.0) L 10/30/24 05:46
Plt Count 245 10^3/uL (130-400) 10/30/24 05:46
APTT Cancelled 10/26/24 17:00
eGFR 31.47 10/30/24 05:46
[2024-10-30] MEDS: CARAFATE SUSPENSION 1 GM PO ×2 (08:42→13:07)
[2024-10-30] MEDS: DELTASONE 7.5 MG PO (08:44)
[2024-10-30] MEDS: PROTONIX 40 MG PO (08:45)
[2024-10-30] MEDS: PLAQUENIL 400 MG PO (08:45)
[2024-10-30] MEDS: COREG 3.125 MG PO (08:45)
[2024-10-30] MEDS: LEXAPRO 20 MG PO (08:45)
[2024-10-30] MEDS: COLCHICINE 0.6 MG PO (08:45)
[2024-10-30] MEDS: LEXAPRO 5 MG PO (08:45)
[2024-10-30] MEDS: IMDUR (EXTENDED RELEASE) 30 MG PO (08:45)
[2024-10-30] MEDS: LASIX 40 MG PO (08:45)
[2024-10-30] MEDS: ZYRTEC 10 MG PO (08:45)
[2024-10-30] MEDS: PLAVIX 75 MG PO (08:45)
[2024-10-30] MEDS: FARXIGA 10 MG PO (08:45)
[2024-10-30] MEDS: SINGULAIR 10 MG PO (08:45)
[2024-10-30] MEDS: ELIQUIS 5 MG PO (08:46)
--- NOTE | 2024-10-30 10:45 | W.PN.HOSP.TC ---
Today's Communication/Plan
-
Continue to keep patient off of Aldactone given borderline blood pressure
Continue Coreg, p.o. Lasix and Farxiga
Restart Aldactone as outpatient when blood pressure stable
Midodrine started blood pressure seems to be better
Hemoglobin is 8.0
Patient will complete IV iron today
Discharge today if okay with nephrology and cardiology
Assessment / Plan
Assessment / Plan
74-year-old female with chest pain patient was hospitalized from 09/26/2024 to 10/05/2024 with CHF. Patient underwent staged PCI during that admission with PTCA and stent placement to LAD and RCA. Now comes back with chest pain patient was taken to
[facility]. Troponin was elevated and placed on IV heparin. Echo showed EF of 20% she requested transfer to [place] where she has had multiple catheterizations.
Echo 11-17-24-mild concentric LVH. EF 27%. Global hypokinesis with regional wall motion abnormality. Severely hypokinetic to akinetic septum. Small to moderate inferolateral pericardial effusion without hemodynamic compromise.
Cardiac cath September 2024-20% stenosis of LM. LAD proximal to mid heavily calcified with 50% followed by 95% stenosis at the second diagonal stents. First diagonal ostial 70% stenosis. Left circumflex ostial 70% stenosis. RCA mid 80% stenosis.
Status post proximal to mid overlapping drug-eluting stents on 09/29/2024. Status post 3 overlapping drug-eluting stents to proximal to mid RCA 10/02/2024.
EKG reviewed by sc-sinus rhythm with PACs, left axis deviation
CVS: S1-S2 normal
Chest: CTA B/L
Abdomen: Soft, NT / Bowel sounds present
Extremities: No edema
# Non-STEMI
History of coronary disease with previous stents in 2004 at [facility] and also September 2024 at [facility] as above.
Recent LAD and RCA stents in September 2024 at [facility]
Troponin peaked to 9.4
Cath 10-25-24 with evidence of completed LAD infarct in the apical area. Medical management recommended
Continue aspirin, Plavix,Coreg.
Statin intolerant
PCSK9 inhibitors need to be considered as outpatient
Cardiology following
# Chronic HFrEF
Ischemic cardiomyopathy with ejection fraction 20 to 25%
Much pressure on cath 25 with LVEDP of 36
Lasix p.o. started
Hold Aldactone secondary to low blood pressure
Continue Coreg
Farxiga restarted
Midodrine started
Not on JOSSELYN inhibitor/ARB or Arni secondary to renal function
Intake output charting and daily weights
# Asthma/COPD
Chronic hypoxic respiratory failure on 3 L of oxygen at home
Continue Breztri or any equivalents, azelastine, albuterol, fluticasone, as needed guaifenesin, montelukast.
# Acute kidney injury CKD stage III
Creatinine-1.7 today
Likely contrast-induced nephropathy. Resolving
Nephrology evaluation appreciated
# Iron deficiency anemia-continue replacement. Patient was seen by GI during admission here in September and endoscopy held at that time. Needs outpatient GI follow-up discussed
IV iron ordered for iron deficiency anemia, last day today
Erythropetin level normal
# Scleroderma/Raynaud's-continue prednisone and Plaquenil( Followed with Rheum in [facility] now sees Rheum at [place]?)
# Hypothyroidism-continue levothyroxine 75 mcg daily
# GERD-continue PPI, Carafate
Swallowing difficulty only with aspirin?-Outpatient GI evaluation discussed with pt.( Has seen and had an EGD at [facility] in [facility])
# Depression and anxiety-continue Lexapro and Ativan
# History of PE on Eliquis as outpatient
# History of pericarditis and pericardial effusion-continue colchicine
# Neuropathy NOS-continue gabapentin
# Sleep apnea-continue CPAP at 8 cm H2O( Follows with Dr.Patel Motta)
# History of pleural effusion requiring thoracentesis
# History of Arnett's palsy
# History of breast cancer with history of mastectomy on the right side with rectus flap reconstruction, chemo and radiation
# Hemorrhoids/IBS
# Patient is a [employer]- Refuses blood if needed.
# Over weight BMI 29.4
# Non-smoker
# DVT prophylaxis-on Eliquis
# Full code
D/W RN at bed side
Discussed with nephrology and Cardiology
10/29/24-Discussed with patient's granddaughter Ms. Mckinnon and updated. She is aware that patient needs further workup of anemia as outpatient including GI workup endoscopy and colonoscopy
Part of this note was created using voice recognition system. Occasional wrong word or��sound alike� substitutions may have inadvertently occurred due to the inherent limitations of voice recognition software. If noted kindly bring it to my
attention for correction.
Anticipated Discharge: Today
Subjective/Interval History
-
Date of Service: October 30, 2024
Objective Data
-
Labs:
Laboratory Results
10/30/24
05:46
WBC 9.0
Hgb 8.0 L
Hct 27.4 L
Plt Count 245
Sodium 139
Potassium 4.2
Chloride 105
Carbon Dioxide 25
BUN 38 H
Creatinine 1.7 H
Glucose 85
Calcium 9.6
Vital Signs:
Vital Signs
Temp Pulse Resp BP Pulse Ox
97.8 F 76 16 101/57 93
10/30/24 08:04 10/30/24 09:00 10/30/24 08:05 10/30/24 08:02 10/30/24 08:05
I&O
10/29/24 10/30/24 10/31/24
06:59 06:59 06:59
Output Total 1850 / 1850 600 / 600
Balance -1850 / -1850 -600 / -600
--- NOTE | 2024-10-30 12:56 | W.PN.NEPH.PH ---
Today's Communication / Plan
-
ok for d/c
Assessment/Plan
-
74y F with PMH significant for ASCVD, CHF, COPD, CKD and scleroderma who presents to as transfer from [facility] where she was hospitalized for NSTEMI. Patient was recently hospitalized at from 09/26 - 10/05 for ASCVD and CHF. She underwent staged PCI
during that admission with PTCA and stent placement to the LAD and RCA. Patient states that she was feeling well following that admission until this past Wednesday evening when she developed severe substernal chest pain with radiation into the R arm.
Prior admissions to [facility] for pericarditis and pericardial effusion which was not drained (on colchicine).
Renal consult for PATRIA prevention in the setting of elevated creatinine.
Discharge's previous admission with the creatinine of 1.6 remains at 1 point
Impression.
Chronic kidney disease baseline creatinine 1.6
NSTEMI 10/24
Coronary artery disease requiring cardiac catheterization stenting LAD 09/29, RCA 10/02
Severe COPD on 3 L oxygen at home
Pericarditis/pericardial effusion, chronic
Scleroderma unknown if limited or systemic
Rheumatoid arthritis
Heart failure reduced ejection fraction 27%= 10/25
History of hypercalcemia
History of pulmonary embolism
History of breast cancer right, in remission
Plan.
cr stable at basliene 1.7
cont lasix 40mg po BID (OP dose)
Follow BMP
Holding SGLT2 inhibitor-may resume at d/c
ok to take po iron daily after d/c
BP stable, cont midodrine 2.5mg PO BID
continue colchicine
ok for d/c
need BMP in 3-5days
f/u Dr Walker
-
-
Date of Service: October 30, 2024
CC / HPI / ROS
-
Chief Complaint:
KELSEY
History of Present Illness:
Presents with chest pain with significant history of CAD and elevated creatinine
Hemoglobin stable 8
KELSEY/creatinine down at 1.7
Status post cardiac catheterization 10-25-24
Weights stable
BP improving on midodrine
Review of Systems:
No chest pain or shortness of breath
on 3lit o2 chronically
Labs
-
Labs:
WBC 9.0 10^3/uL (4.8-10.8) 10/30/24 05:46
RBC 3.19 10^6/uL (4.20-5.40) L 10/30/24 05:46
Hgb 8.0 g/dL (12.0-16.0) L 10/30/24 05:46
Hct 27.4 % (37.0-47.0) L 10/30/24 05:46
Plt Count 245 10^3/uL (130-400) 10/30/24 05:46
Sodium 139 mmol/L (135-145) 10/30/24 05:46
Potassium 4.2 mmol/L (3.5-5.1) 10/30/24 05:46
Chloride 105 mmol/L (98-107) 10/30/24 05:46
Carbon Dioxide 25 mmol/L (22-30) 10/30/24 05:46
BUN 38 mg/dl (7-17) H 10/30/24 05:46
Creatinine 1.7 mg/dL (0.6-1.0) H 10/30/24 05:46
eGFR 31.47 10/30/24 05:46
Glucose 85 mg/dl (70-99) 10/30/24 05:46
Calcium 9.6 mg/dl (8.4-10.2) 10/30/24 05:46
Now-S-Dqyzghgffso Pept 7630 pg/ml 10/25/24 09:32
Physical Exam
-
Vital Signs:
Vital Signs
Temp Pulse Resp BP Pulse Ox
97.8 F 76 16 101/57 93
10/30/24 08:04 10/30/24 09:00 10/30/24 08:05 10/30/24 08:02 10/30/24 08:05
Cardiovascular:: Regular rate and rhythm
Respiratory:: Bilateral: Coarse
Lung Excursion:: Normal
Abdomen:: Nontender and Soft
Bowel Sounds:: Normal
Extremity Edema:: None: Bilateral: (trace)
Live Catheter: No
[2024-10-30] MEDS: FERRLECIT 110 MG IV (13:07)
[2024-10-30 13:12] VITALS: BP 98/54
--- NOTE | 2024-10-30 13:20 | W.DS.TRANS ---
Addendum entered and electronically signed by Rony Samuels MD 10/30/24 16:36:
Dictation- [id number]
Original Note:
DC Summary - Bow Stapler
-
Discharge Instructions:
Discharge Diagnosis/Procedures Non-STEMI post cardiac cath
Acute on chronic heart failure
Asthma/COPD
Acute kidney injury CKD stage III
Iron deficiency anemia
Scleroderma/Raynaud's
Hypothyroidism
GERD
Depression and anxiety
History of PE
History pericarditis and pericardial effusion
Sleep apnea
History of breast cancer
Diet Restrict fluids to 48 oz,2 Gram Sodium
Activity As tolerated,With assistance
Driving Restrictions No driving for 24 hours
Blood Work BMP 3-5 days
Other Services VN
Specialty Instructions Weigh Daily
Instructions:
Stand-Alone Forms: DC Instructions- Cath/EP Lab
Changes to Home Medications: Yes
Discharge Medications:
DC Medications w/original date entered in [employer]
albuterol sulfate 90 mcg/actuation aerosol inhaler 2 puff inhalation Q6H PRN COPD 09/26/24
gabapentin 300 mg capsule 300 mg PO HS 09/26/24
lorazepam 1 mg tablet 0.5 mg PO HS PRN anxiety 09/26/24
nitroglycerin 0.4 mg sublingual tablet 0.4 mg sublingual Q5-15M PRN Chest pain 09/26/24
apixaban 5 mg tablet (Eliquis) 5 mg PO BID Blood clot prevention/tx #0 tabs 10/30/24
azelastine 137 mcg (0.1 %) nasal spray 1 spray intranasal BID Allergies #0 mL 10/30/24
budesonide 160 mcg-glycopyr 9 mcg-formot 4.8 mcg/actuation HFA inhaler (Breztri Aerosphere) 2 inh inhalation BID copd #0 grams 10/30/24
carvedilol 3.125 mg tablet 3.125 mg PO BID Heart disease/condition #0 tabs 10/30/24
cetirizine 10 mg tablet 10 mg PO DAILY Allergies #0 tabs 10/30/24
clopidogrel 75 mg tablet (Plavix) 75 mg PO DAILY Blood clot prevention/tx #0 tabs 10/30/24
colchicine 0.6 mg tablet 0.6 mg PO DAILY pericarditis #0 tabs 10/30/24
cyclobenzaprine 10 mg tablet 10 mg PO HS spasm #0 tabs 10/30/24
dapagliflozin propanediol 10 mg tablet 10 mg PO DAILY Heart disease/condition #30 tabs 10/30/24
dexlansoprazole 60 mg capsule,biphase delayed release 60 mg PO DAILY Gastrointestinal issue #0 caps 10/30/24
escitalopram oxalate 20 mg tablet 20 mg PO DAILY Depression #0 tabs 10/30/24
escitalopram oxalate 5 mg tablet 5 mg PO DAILY Depression #0 tabs 10/30/24
ferrous sulfate 325 mg (65 mg iron) tablet (FeroSul) 325 mg PO BID anemia #0 tabs 10/30/24
fluticasone propionate 50 mcg/actuation nasal spray,suspension 2 spray intranasal BID Allergies #0 grams 10/30/24
furosemide 40 mg tablet 40 mg PO BID AT 0800,1600 Fluid retention/Swelling #60 tabs 10/30/24
guaifenesin 600 mg tablet, extended release 12 hr 600 mg PO BID PRN Congestion #0 tabs 10/30/24
hydroxychloroquine 400 mg tablet 400 mg PO DAILY Autoimmune disorder #0 tabs 10/30/24
isosorbide mononitrate 30 mg tablet,extended release 24 hr 30 mg PO DAILY Heart disease/condition #30 tabs 10/30/24
levothyroxine 75 mcg tablet 75 mcg PO DAILY Thyroid #0 tabs 10/30/24
midodrine 2.5 mg tablet 2.5 mg PO TID@0800,1300,1800 Blood pressure #90 tabs 10/30/24
montelukast 10 mg tablet 10 mg PO DAILY Allergies #0 tabs 10/30/24
multivitamin-ferrous fumarate-folic acid 18 mg-400 mcg tablet (Centrum Women) 1 tab PO DAILY Supplement #0 tabs 10/30/24
prednisone 7.5 mg PO DAILY Autoimmune disorder ##0 10/30/24
sucralfate 100 mg/mL oral suspension 10 ml PO AC Gastrointestinal issue #0 mL 10/30/24
vitamin B complex 1 tab PO DAILY Supplement #0 tabs 10/30/24
Home Medication Changes
Continued
Imdur and midodrine are new
Pending Results: No
--- NOTE | 2024-10-30 13:38 | W.PN.CARDCBS ---
Addendum entered and electronically signed by Dominguez Alaniz MD 10/30/24 14:18:
I saw and examined the patient.
The MAINTENANCE SUPERINTENDENT or PA's note was reviewed and I agree with the note.
Comment: General: Well developed, well nourished in NAD.
Neck: Supple, no JVD, HJR, carotids +2 B/L, no bruits bilaterally.
Heart: Non displaced PMI, RRR, no murmurs, No S3, S4, no rubs.
Lungs: Clear to auscultation bilaterally, no wheeze, rhonchi, rubs bilaterally,
normal expiratory phase.
Extremities: No clubbing, cyanosis or edema bilaterally.
Neuro: Grossly nonfocal, awake, alert and oriented x3.
Stable cardiology status for discharge. Continue to hold Aldactone. Continue midodrine. Follow-up with [facility]
Original Note:
Today's Communication / Plan
-
f/u with primary furnace utility operator
Med changes outlined in note
Impression / Plan
-
Primary Recording Studio Setup Worker: Dr. Rodger Bacon of [facility]
Primary Husker Operator: Dr. Jimmie Remy [phone]
Assessment:
Presentation to [facility] 10/22 with CP, RUE pain
Transfer to [facility] 10/25/24
NSTEMI
Acute on chronic HFrEF
Multivessel CAD
Status post LAD PCI 2004 at [facility]
s/p 2 overlapping 2.5 x 30 mm and 2.25 x 30 mm Medtronic Burak drug-eluting stents to LAD 09/29/2024
s/p 3 overlapping Medtronic Burak REBECA to prox to mid RCA 10/02/24
ICM, EF 20 to 25% 09/26/24
CKD 3B
HTN
HLD
chronic LBBB
COPD on chronic 3L supp O2
History of PE
Chronic OAC with Eliquis
History of statin intolerance (paralysis)
Raynaud's syndrome
Scleroderma on chronic steroids
Neuropathy
Hypothyroidism
History of breast cancer s/p mastectomy with reconstruction, chemo, radiation
Obesity
LOUISE on CPAP
Chronic anemia
Buddhist - will not accept blood transfusions
ECHO 09/26/24: EF 20 to 25% with global hypokinesis, moderate concentric LVH, stage I diastolic dysfunction, mild , small to moderate pericardial effusion posterior to left ventricle without evidence of hemodynamic compromise, ascending aorta
dilation measuring 4.1 cm
Follow-up echo 10/25/2024: EF 27%, mild concentric LVH, global hypokinesis with regional wall motion abnormalities and septum severely hypo to akinetic, small to moderate inferolateral pericardial effusion without hemodynamic compromise
Recommendations:
-Patient with chest pain and NSTEMI on admission. Troponin was 9.43 on admission and trending down thereafter.
-Patient had cardiac cath 10/25/24 and the mid-distal LAD was 100% occluded in the area of stent overlap and previous high-grade in-stent restenosis. The distal vessel fills via faint [id number] collaterals. Patent proximal LAD stent with patent
1st and 2nd diagonal and widely patent RCA stent and elevated right and left ventricular filling pressures. Plan is for medical management for completed apical LAD infarct has been recommended by interventional cardiology.
-Not on aspirin due to Plavix and Eliquis. Of note, patient history of aspirin sensitivity/intolerance with symptoms of severe abd pain, diarrhea, and cold sweats
-Outpatient dose of Plavix 75 mg daily has been continued
-Patient was on heparin gtt, but now back to usual dose of Eliquis 5 mg BID (age 74, wt 83.4 kg)
-Outpatient dose of Coreg 3.125 mg BID has been continued
-New to Imdur ER 30 mg daily that was added while she was at [facility] on 10/23/24
-Outpatient dose of Farxiga 10mg daily has been continued
-Outpatient dose of spironolactone 25mg daily was held due to hypotension, patient's primary furnace utility operator can try to restart as an outpatient.
-Patient with acute HFrEF, weight is down about 2 lbs this admission with Lasix 40 mg IV BID and now ordered Lasix 40 mg PO BID which was her outpatient dose.
-GDMT as outlined above.
-As an outpatient there will need to be consideration for sudden cardiac risk assessment, consideration for ICD/CHIPPER FEEDER-D implantation for primary risk reduction
-Chronic anemia, Hgb stable at 8.0 on labs reviewed by me 10/30/24. Patient has chronic anemias, she is Tenriism and will not accept blood products
-Stable for d/c to home 10/30/24
Progress Note - Recording Studio Setup Worker
Subjective
Date of Service: October 30, 2024
Feels well, she thinks she's ready to go home
Objective
Labs:
10/30/24 05:46
10/30/24 05:46
Labs
Hgb 8.0 g/dL (12.0-16.0) L 10/30/24 05:46
Hct 27.4 % (37.0-47.0) L 10/30/24 05:46
Plt Count 245 10^3/uL (130-400) 10/30/24 05:46
APTT Cancelled 10/26/24 17:00
Sodium 139 mmol/L (135-145) 10/30/24 05:46
Potassium 4.2 mmol/L (3.5-5.1) 10/30/24 05:46
BUN 38 mg/dl (7-17) H 10/30/24 05:46
Creatinine 1.7 mg/dL (0.6-1.0) H 10/30/24 05:46
Glucose 85 mg/dl (70-99) 10/30/24 05:46
Vital Signs and I&O:
Vital Signs
Temp Pulse Resp BP Pulse Ox
97.8 F 76 16 98/54 93
10/30/24 08:04 10/30/24 09:00 10/30/24 08:05 10/30/24 13:08 10/30/24 08:05
Vital Signs
Temp Pulse Resp BP Pulse Ox
97.8 F 76 16 98/54 93
10/30/24 08:04 10/30/24 09:00 10/30/24 08:05 10/30/24 13:08 10/30/24 08:05
Intake & Output
10/28/24 10/29/24 10/30/24 10/31/24
06:59 06:59 06:59 06:59
Intake Total 240 / 240
Output Total 500 / 500 1850 / 1850 600 / 600
Balance -260 / -260 -1850 / -1850 -600 / -600
Physical Exam
Physical Exam
GEN: NAD
LUNGS: RA, no audible wheeze
CV: SR on tele
[2024-10-30 14:30] VITALS: BP 98/53
--- NOTE | 2024-10-30 16:14 | CM ---
pt medically cleared for dc, called her Yannick (ADELE) DAKSHA Trotter [phone] with update. pt called [employer] for ride home. [facility] services resumed and pt accepted for RN/PT/OT.
== END 2024-10-30 15:17 | disposition home health service (06) | DRG 280 ==
LOC: IVU 01:10
PROVIDERS: Nurse Practitioner Adult Health; Nurse Practitioner Family; Specialist; ADMITTING PHYSICIAN Hospitalist; ATTENDING PHYSICIAN Hospitalist; CONSULT PHYSICIAN Internal Medicine Nephrology; FAMILY PHYSICIAN Family Medicine; OTHER PHYSICIAN Internal Medicine Hematology & Oncology; OTHER PHYSICIAN Internal Medicine Interventional Cardiology
PROC: 4A023N8 Measurement of Cardiac Sampling and Pressure, Bilateral, Percutaneous Approach (ICD-10-PCS; 2024-10-25)
PROC: B2111ZZ Fluoroscopy of Multiple Coronary Arteries using Low Osmolar Contrast (ICD-10-PCS; 2024-10-25)
DX: T82.855A Stenosis of coronary artery stent, initial encounter (principal); I50.23 Acute on chronic systolic (congestive) heart failure; I21.4 Non-ST elevation (NSTEMI) myocardial infarction; I13.0 Hypertensive heart and chronic kidney disease with heart failure and stage 1 through stage 4 chronic kidney disease, or unspecified chronic kidney disease; J96.11 Chronic respiratory failure with hypoxia; N17.9 Acute kidney failure, unspecified; I50.22 Chronic systolic (congestive) heart failure; I25.2 Old myocardial infarction; J44.89 Other specified chronic obstructive pulmonary disease; K21.9 Gastro-esophageal reflux disease without esophagitis; E03.9 Hypothyroidism, unspecified; F32.A Depression, unspecified; Z79.01 Long term (current) use of anticoagulants; N18.32 Chronic kidney disease, stage 3b; I73.00 Raynaud's syndrome without gangrene; M34.9 Systemic sclerosis, unspecified; Y84.8 Other medical procedures as the cause of abnormal reaction of the patient, or of later complication, without mention of misadventure at the time of the procedure
CPT/HCPCS: 80048; 82668; 82728; 82962; 83036; 83540; 83550; 83880; 84484; 85027; 85576; 85730; 87070; 92610; 93005; 93308; 93460; 94640; 94660; 99152; C1760; C1894; J2916; Q9950; Q9967

== ENCOUNTER → 2024-12-13 10:17 | Outpatient (REF) | payer OTHER, SELFPAY | LOC: RST 10:17 | PROVIDERS: ATTENDING PHYSICIAN Internal Medicine Gastroenterology; FAMILY PHYSICIAN Family Medicine | DX: R13.14 Dysphagia, pharyngoesophageal phase (principal) | CPT/HCPCS: 74230; 92611 ==

== ENCOUNTER 2024-12-20 17:19 | Outpatient (RCR) | payer OTHER, SELFPAY | END 2024-12-20 23:59 | disposition home or self-care (01) | LOC: CRHB 17:19 | PROVIDERS: ATTENDING PHYSICIAN Internal Medicine Cardiovascular Disease | DX: I25.10 Atherosclerotic heart disease of native coronary artery without angina pectoris (principal); Z95.5 Presence of coronary angioplasty implant and graft; I25.2 Old myocardial infarction | CPT/HCPCS: G0422; G0423 ==

== ENCOUNTER 2025-01-10 13:42 | Outpatient (RCR) | payer OTHER, SELFPAY | END 2025-01-10 23:59 | disposition home or self-care (01) | LOC: CRHB 13:42 | PROVIDERS: ATTENDING PHYSICIAN Internal Medicine Cardiovascular Disease | DX: I25.2 Old myocardial infarction (principal); I50.20 Unspecified systolic (congestive) heart failure; Z95.5 Presence of coronary angioplasty implant and graft | CPT/HCPCS: G0422; G0423 ==

== ENCOUNTER 2025-02-21 13:38 | Outpatient (RCR) | payer OTHER, SELFPAY | END 2025-02-21 23:59 | disposition home or self-care (01) | LOC: CRHB 13:38 | PROVIDERS: ATTENDING PHYSICIAN Internal Medicine Cardiovascular Disease | DX: I21.4 Non-ST elevation (NSTEMI) myocardial infarction (principal); I25.2 Old myocardial infarction (principal); I50.20 Unspecified systolic (congestive) heart failure; Z95.5 Presence of coronary angioplasty implant and graft; I50.9 Heart failure, unspecified | CPT/HCPCS: G0422; G0423 ==

== ENCOUNTER 2025-03-19 13:14 | Outpatient (RCR) | payer OTHER, SELFPAY | END 2025-03-19 23:59 | disposition home or self-care (01) | LOC: CRHB 13:14 | PROVIDERS: ATTENDING PHYSICIAN Internal Medicine Cardiovascular Disease | DX: I25.2 Old myocardial infarction (principal); I21.4 Non-ST elevation (NSTEMI) myocardial infarction (principal); I50.22 Chronic systolic (congestive) heart failure; I50.9 Heart failure, unspecified; Z95.5 Presence of coronary angioplasty implant and graft; I50.20 Unspecified systolic (congestive) heart failure | CPT/HCPCS: G0422; G0423 ==

== ENCOUNTER 2025-04-11 14:15 | Outpatient (RCR) | payer OTHER, SELFPAY | END 2025-04-17 14:19 | disposition home or self-care (01) | LOC: CRHB 14:15 | PROVIDERS: ATTENDING PHYSICIAN Internal Medicine Cardiovascular Disease | DX: I25.2 Old myocardial infarction (principal); I50.22 Chronic systolic (congestive) heart failure; Z95.5 Presence of coronary angioplasty implant and graft; I21.4 Non-ST elevation (NSTEMI) myocardial infarction; I50.9 Heart failure, unspecified; I50.20 Unspecified systolic (congestive) heart failure | CPT/HCPCS: G0422; G0423 ==